=== PATIENT | female | born 1945 | race Caucasian/White ===

== ENCOUNTER 2018-01-11 20:54 | Emergency (ER) | payer OTHER, SELFPAY ==
[2018-01-11 21:15] VITALS: BP 123/123; PULSE 60; RESP 22; TEMP 36.9; O2SAT 97; BMI 30.9
[2018-01-11 22:11] VITALS: BP 153/79; PULSE 57; RESP 14; O2SAT 100
[2018-01-12 00:15] VITALS: BP 190/93; PULSE 63; RESP 14; O2SAT 96
--- NOTE | 2018-01-12 03:38 | ED_ITS ---
HPI - Epistaxis General Chief complaint: Nasal Problem Stated complaint: NOSE BLEED, FEELS FAINT Time Seen by Provider: 01/11/18 21:29 Source: patient Mode of arrival: ambulatory Limitations: no limitations History of Present Illness HPI Narrative: Patient is a 72-year-old female who presents with all epistaxis. She said it started 30 min prior to arrival she rubbed her know that and immediately started bleeding. It was never draining down her throat. She cannot get it to stop. She had a nosebleed last week as well which stopped fairly quickly. She is not on antiplatelet for his blood thinners. Seems to be coming more from the right side than the left. MD complaint: epistaxis Onset (ago): minute(s) (30) Related Data Previous Rx's Medication Instructions Recorded albuterol sulfate [Ventolin HFA] 0 INH Q4H #8 gm 05/17/16 fluticasone [Flonase Allergy 0 INTRANASAL QDAY #1 bot 06/10/16 Relief] losartan [Cozaar] 50 mg PO BID #180 tab 06/13/17 simvastatin 20 mg PO HS #90 tab 06/16/17 hydroxyzine HCl 25 - 50 mg PO Q6HP PRN #60 tab 09/20/17 doxycycline monohydrate 100 mg PO BID #20 cap 09/29/17 atenolol 50 mg PO QDAY #90 tab 10/31/17 fluoxetine 20 mg PO QDAY #90 tab 11/28/17 Allergies Allergy/AdvReac Type Severity Reaction Status Date / Time azithromycin [AZITHROMYCIN] Allergy Severe THROAT Verified 01/11/18 21:17 SWELLING & SOB sulfamethoxazole AdvReac Mild INSOMNIA Verified 01/11/18 21:17 [From BACTRIM] trimethoprim [From BACTRIM] AdvReac Mild INSOMNIA Verified 01/11/18 21:17 Review of Systems Review of Systems All systems reviewed & are unremarkable except as noted in HPI and below Constitutional Denies chills, Denies fever(s), Denies lethargy and Denies weakness ENT Ears, Nose, Mouth, and Throat: Denies nasal discharge, Denies nasal obstruction and Denies nasal trauma Cardiovascular Denies syncope and Denies dyspnea Respiratory Denies cough and Denies dyspnea Gastrointestinal Gastrointestinal: Denies abdominal pain, Denies change in bowel habits, Denies diarrhea, Denies nausea and Denies vomiting Integumentary/Breasts Denies pruritus, Denies erythema, Denies rash and Denies wounds Neurologic Denies syncope and Denies weakness PFSH Medical History Hyperlipidemia (Acute) Hypertension (Acute) Surgical History Status post vaginal hysterectomy Social History Smoking Status: Never smoker Exam Initial Vital Signs Initial Vital Signs: Vital Signs Temperature 98.5 F 01/11/18 21:15 Pulse Rate 60 01/11/18 21:15 Respiratory Rate 22 01/11/18 21:15 Blood Pressure 123/123 H 01/11/18 21:15 Pulse Oximetry 97 01/11/18 21:15 Const General: cooperative and healthy appearing HENMT Nose: epistaxis (Right side. Pharynx is clear ) Neck Neck: full ROM Resp Effort & Inspection: normal respiratory effort and able to speak in complete sentences Cardio Pulses: normal peripheral pulses Skin General: no rashes or lesions noted, No jaundice and No petechiae Neuro General: alert, awake and oriented x3 Procedures Epistaxis Control Time Out Performed: Yes Nostril: right Nose Prepped With: oxymetazoline Direct Inspection: yes and unable to visualize Clots Removed by: blowing nose Cautery Used: none Device Inserted: hemostatic balloon Patient Tolerated Procedure: well and no complications Course Hospital Course: Initially clamped was placed. Bleeding was thought to be controlled however it started dizziness the clamp was released. Rhino rocket with Afrin and placed easily on the right near. Bleeding controlled patient tolerated procedure well. Breathing remained controlled once it was removed. Vital Signs - 8 hr 01/11/18 21:15 01/11/18 22:11 01/12/18 00:15 Temperature 98.5 F Pulse Rate 60 57 L 63 Respiratory Rate 22 14 14 Blood Pressure 123/123 H 190/93 H Blood Pressure [Right Arm] 153/79 H Pulse Oximetry 97 100 96 MDM - Epistaxis MDM Narrative Medical decision making narrative: Blood pressure is noted to be fluctuating quite a bit during her stay here. She has not yet taken her nightly dose of medication. Recommended she go home to take her blood pressure medicine. Discharge Plan Departure Patient Disposition: Home, Self-Care Clinical Impression: Epistaxis Discharge Date/Time: 01/12/18 00:17 Interventions: ED Discharge Assessment Last Done: 01/12/18 00:15 Instructions: DI for Nosebleed Activity Restrictions/Additional Instructions: *You have been diagnosed with nose bleed *What to do: Placed clamp for 30-60 minutes of nose which should start again *Continue to take medications as directed *Follow up with your primary care provider in 2-3 days *Return to ER if you should have persistent bleeding after nose clamp for 60 min , blood going down throat or, any new, worsening or concerning symptoms Prescriptions: No Action albuterol sulfate [Ventolin HFA] 90 MCG/PUFF HFA aerosol inhaler INH Q4H Qty: 8 RF: 0 fluticasone [Flonase Allergy Relief] 9.9 ML spray,suspension Intranasal QDAY Qty: 1 RF: 1 losartan [Cozaar] 50 MG tablet 50 mg PO BID Qty: 180 RF: 5 simvastatin 20 MG tablet 20 mg PO HS Qty: 90 RF: 1 hydroxyzine HCl 25 MG tablet 25 - 50 mg PO Q6HP PRNQty: 60 RF: 5 doxycycline monohydrate 100 MG capsule 100 mg PO BID Qty: 20 RF: 0 atenolol 50 MG tablet 50 mg PO QDAY Qty: 90 RF: 1 fluoxetine 20 MG tablet 20 mg PO QDAY Qty: 90 RF: 0 Referrals: Jose Juan Ignacio MD [Primary Care Provider] -
== END 2018-01-12 00:17 | disposition home or self-care (01) ==
PROVIDERS: Emergency Provider Emergency Medicine; Family Provider Family Medicine; PCP Family Medicine
DX: R03.0 Elevated blood-pressure reading, without diagnosis of hypertension (principal)
CPT/HCPCS: 30905; 99282

== ENCOUNTER → 2018-02-21 18:15 | Outpatient (CLI) | payer OTHER, SELFPAY ==
--- NOTE | 2018-02-21 18:17 | DI.RAD.S_ITS ---
PROCEDURE: XR WRIST LT MIN 3V INDICATIONS: fall on left hand TECHNIQUE: 4 views of the wrist were acquired. COMPARISON: [facility], , HAND 2V LEFT, 11/15/2009, 14:58. FINDINGS: Bones: No fractures or dislocations. No suspicious bony lesions. Scaphoid view: Negative Soft tissues: No suspicious soft tissue calcifications. IMPRESSION: No acute fracture. No osseous lesion. If clinical suspicion and/or symptoms persist, further assessment with repeat plainfilms, or advanced imaging (e.g., CT, MRI, or bone scan) may be helpful for further assessment. Dictated by: Dale Mike M.D. on 02/21/2018 at 18:35 Approved by: Dale Mike M.D. on 02/21/2018 at 18:36
--- NOTE | 2018-02-21 18:17 | DI.RAD.S_ITS ---
PROCEDURE: XR HAND LT MIN 3V INDICATIONS: fall on left hand TECHNIQUE: 3 views of the hand(s) acquired. COMPARISON: [facility], [facility], XR WRIST LT MIN 3V, 02/21/2018, 17:57. [facility], [facility], HAND 2V LEFT, 11/15/2009, 14:58. FINDINGS: Bones: No fractures or dislocations. Carpal bones are normally aligned. No suspicious bony lesions. Soft tissues: No suspicious soft tissue calcifications. IMPRESSION: No acute fracture. No osseous lesion. If clinical suspicion and/or symptoms persist, further assessment with repeat plainfilms, or advanced imaging (e.g., CT, MRI, or bone scan) may be helpful for further assessment. Dictated by: Dale Mike M.D. on 02/21/2018 at 18:36 Approved by: Dale Mike M.D. on 02/21/2018 at 18:36
== END ==
PROVIDERS: Family Provider Family Medicine; PCP Family Medicine; Visit Provider Physician Assistant
DX: S69.92XA Unspecified injury of left wrist, hand and finger(s), initial encounter (principal); M79.642 Pain in left hand
CPT/HCPCS: 73110; 73130

== ENCOUNTER 2018-06-21 23:11 | Emergency (ER) | payer OTHER, SELFPAY ==
[2018-06-21 23:18] VITALS: BP 190/119; PULSE 77; RESP 20; TEMP 35.5; O2SAT 100; BMI 29.2
--- NOTE | 2018-06-21 23:25 | ED_ITS ---
HPI - Abdominal Pain General Chief Complaint: Abdominal Pain Stated Complaint: N/V x2 hours Time Seen by Provider: 06/21/18 23:17 Source: patient and EMS Mode of arrival: EMS Limitations: no limitations History of Present Illness HPI narrative: A 73-year-old female here for evaluation of nausea vomiting diarrhea. Patient stated that the symptoms started approximately 2 hr prior to arrival here in the emergency department. Has not tried anything for it. She states that it started as diarrhea and then progressed to nausea and vomiting. She states she could not get the vomiting under control. Does have some abdominal cramping but she states it is associated with the diarrhea and the nausea vomiting. Did eat pizza this evening. Family members are with her also ate the same food and none of them have the symptoms. Related Data Previous Rx's Medication Instructions Recorded albuterol sulfate [Ventolin HFA] 0 INH Q4H #8 gm 05/17/16 fluticasone [Flonase Allergy 0 INTRANASAL QDAY #1 bot 06/10/16 Relief] losartan [Cozaar] 50 mg PO BID #180 tab 06/13/17 hydroxyzine HCl 25 - 50 mg PO Q6HP PRN #60 tab 09/20/17 doxycycline monohydrate 100 mg PO BID #20 cap 09/29/17 atenolol 50 mg PO QDAY #90 tab 10/31/17 simvastatin 20 mg PO HS #90 tab 01/24/18 fluoxetine 20 mg tablet 20 mg PO QDAY #90 tab 04/13/18 ondansetron HCl [Zofran] 4 mg PO BID-TID PRN #10 tab 06/22/18 Allergies Allergy/AdvReac Type Severity Reaction Status Date / Time azithromycin [AZITHROMYCIN] Allergy Severe THROAT Verified 01/11/18 21:17 SWELLING & SOB sulfamethoxazole AdvReac Mild INSOMNIA Verified 01/11/18 21:17 [From BACTRIM] trimethoprim [From BACTRIM] AdvReac Mild INSOMNIA Verified 01/11/18 21:17 Review of Systems Constitutional Denies fever(s) and Denies frequent falls Cardiovascular Denies chest pain and Denies dyspnea Respiratory Denies dyspnea Gastrointestinal Gastrointestinal: Reports abdominal pain, Reports cramping, Reports diarrhea, Reports nausea and Reports vomiting Genitourinary Denies dysuria Integumentary/Breasts Denies lesions and Denies rash Neurologic Denies frequent falls PFSH Medical History Hyperlipidemia (Acute) Hypertension (Acute) Surgical History Status post vaginal hysterectomy Social History Smoking Status: Never smoker Exam Initial Vital Signs Initial Vital Signs: Vital Signs Temperature 96 F L 06/21/18 23:18 Pulse Rate 77 06/21/18 23:18 Respiratory Rate 20 06/21/18 23:18 Blood Pressure 190/119 H 06/21/18 23:18 Pulse Oximetry 100 06/21/18 23:18 Const General: cooperative, well developed, well groomed and No acute distress Orientation: alert, awake and oriented x3 Resp Effort & Inspection: normal respiratory effort Auscultation: clear to auscultation bilaterally Cardio Rate: regular rate Rhythm: regular rhythm GI Inspection: non-distended Palpation: soft, No firm, No guarding and tender (Diffusely tender) Skin Lesions: no lesions Rashes: no rashes Neuro General: alert, awake and oriented x3 Cognition: normal cognition Speech: speech normal Extrem General: normal to inspection and capillary refill normal Psych Appearance: grossly normal and well kempt Course Orders Ordered: ED Orders 06/21/18 23:58 Comprehensive Metabolic Panel Stat Lipase Stat 06/22/18 00:18 Complete Blood Count AUTO DIFF Stat Discontinued Medications Sodium Chloride (Normal Saline 0.9%) 1,000 mls @ 1,000 mls/hr IV BOLUS ONE Stop: 06/22/18 00:16 Last Infusion: 06/22/18 01:14 Dose: 1,000 mls/hr Admin: 06/21/18 23:50 Dose: 1,000 mls/hr Metoclopramide HCl (Reglan) 10 mg IV NOW ONE Stop: 06/22/18 00:42 Last Admin: 06/22/18 00:43 Dose: 10 mg Ondansetron HCl (Zofran) 4 mg IV NOW ONE Stop: 06/21/18 23:18 Last Admin: 06/21/18 23:50 Dose: 4 mg Ondansetron HCl (Zofran Odt Prepack) 1 bottle MISC SEEINSTR ONE Stop: 06/22/18 01:56 Vital Signs - 8 hr 06/21/18 23:18 06/22/18 00:10 06/22/18 00:45 Temperature 96 F L 96 F L Pulse Rate 77 77 70 Respiratory Rate 20 20 16 Blood Pressure 190/119 H 190/119 H Blood Pressure [Right Arm] 186/96 H Pulse Oximetry 100 100 100 MDM - Abdominal Pain Lab Data Attestation: I reviewed the patient's lab results. Result diagrams: 06/21/18 23:58 06/21/18 23:58 Lab Results 06/21/18 06/21/18 06/21/18 Range/Units 23:58 23:58 23:58 WBC 13.0 H (4.5-11.0) X10^3/uL RBC 5.30 H (4.0-5.2) X10^6/uL Hgb 15.4 (12.0-16.0) g/dL Hct 46.1 H (36-46) % MCV 87.1 (80-100) fL MCH 29.1 (26-34) PG MCHC 33.5 (30-36) % RDW 13.8 (11.6-14.8) % Plt Count 259 (150-400) X10^3/uL Neut % (Auto) 88.1 H (50-75) % Lymph % (Auto) 6.1 L (25-40) % [place] % (Auto) 5.2 (3-14) % Eos % (Auto) 0.4 L (2-4) % Baso % (Auto) 0.2 (0-2) % Neut # (Auto) 01065 H (3998-5584) /uL Sodium 142 (137-145) mmol/L Potassium 3.3 L (3.4-5.1) mmol/L Chloride 102 (98-107) mmol/L Carbon Dioxide 23 (22-32) mmol/L BUN 22 H (7-17) mg/dL Creatinine 0.60 (0.52-1.04) mg/dL Estimated GFR > 60.0 (>60) mL/min BUN/Creatinine Ratio 36.7 H (6-22) Glucose 150 H (80-110) mg/dL Calcium 9.3 (8.4-10.2) mg/dL Total Bilirubin 0.7 (0.2-1.3) mg/dL AST 35 (14-36) IU/L ALT 27 (9-52) IU/L Alkaline Phosphatase 84 (38-126) U/L Total Protein 7.5 (6.3-8.2) g/dL Albumin 4.7 (3.5-5.0) g/dL Globulin 2.8 (1.7-4.1) g/dL Albumin/Globulin Ratio 1.7 (1.0-2.8) Lipase 50 (23-300) U/L MDM Narrative Medical decision making narrative: Patient received a L fluids and Zofran and Reglan here in the emergency department with improvement of her symptoms. She was able to tolerate oral intake. Her abdominal pain improved when the nausea was better. I suspect the slight leukocytosis is demargination. Will send home with a prescription for Zofran. Will hold on further workup for now. Patient was given return precautions. She expressed understanding and agreement with plan. Patient also hypertensive however she stated that she did not take her night medications because of the nausea and vomiting. Discharge Plan Departure Patient Disposition: Home Clinical Impression: Nausea & vomiting, Diarrhea, Hypertension Instructions: Diarrhea, Nausea and Vomiting-Adult Activity Restrictions/Additional Instructions: Recommend you take the medication as directed. Increase your fluid intake. Return to the emergency department for any new symptoms, worsening symptoms, inability to tolerate oral intake despite the medications, fevers, or any other concerning symptoms. Prescriptions: New ondansetron HCl [Zofran] 4 mg tablet 4 mg PO BID-TID PRN (Reason: nausea and vomiting) Qty: 10 RF: 0 No Action albuterol sulfate [Ventolin HFA] 90 MCG/PUFF HFA aerosol inhaler INH Q4H Qty: 8 RF: 0 fluticasone [Flonase Allergy Relief] 9.9 ML spray,suspension Intranasal QDAY Qty: 1 RF: 1 losartan [Cozaar] 50 MG tablet 50 mg PO BID Qty: 180 RF: 5 hydroxyzine HCl 25 MG tablet 25 - 50 mg PO Q6HP PRNQty: 60 RF: 5 doxycycline monohydrate 100 MG capsule 100 mg PO BID Qty: 20 RF: 0 atenolol 50 MG tablet 50 mg PO QDAY Qty: 90 RF: 1 simvastatin 20 mg tablet 20 mg PO HS Qty: 90 RF: 1 fluoxetine 20 mg tablet 20 mg PO QDAY Qty: 90 RF: 0
[2018-06-21] MEDS: SODIUM CHLORIDE 0.9% 1,000 ML 1000 ML IV (23:50)
[2018-06-21] MEDS: ONDANSETRON 4 MG/2 ML INJ IV (23:50)
[2018-06-22 00:10] VITALS: BP 190/119; PULSE 77; RESP 20; TEMP 35.5; O2SAT 100; BMI 29.2
[2018-06-22 00:28] LABS: Add Manual Diff / Slide Review NO; Basophils Percent Auto 0.2 % (0-2); Eosinophils Percent Auto 0.4 % (2-4); Hematocrit 46.1 % (36-46); Hemoglobin 15.4 g/dL (12.0-16.0); Lymphocytes Percent Auto 6.1 % (25-40); Mean Corpuscular HGB Conc 33.5 % (30-36); Mean Corpuscular Hemoglobin 29.1 PG (26-34); Mean Corpuscular Volume 87.1 fL (80-100); Monocytes Percent Auto 5.2 % (3-14); Neutrophils Absolute Auto 11500 /uL (3000-5900); Neutrophils Percent Auto 88.1 % (50-75); Platelet Count 259 X10^3/uL (150-400); Red Cell Distribution Width 13.8 % (11.6-14.8)
[2018-06-22 00:35] LABS: Lipase 50 U/L (23-300)
[2018-06-22 00:37] LABS: Alanine Aminotransferase 27 IU/L (9-52); Albumin 4.7 g/dL (3.5-5.0); Albumin Globulin Ratio 1.7 (1.0-2.8); Alkaline Phosphatase 84 U/L (38-126); Aspartate Aminotransferase 35 IU/L (14-36); BUN Creatinine Ratio 36.7 (6-22); Bilirubin Total 0.7 mg/dL (0.2-1.3); Blood Urea Nitrogen 22 mg/dL (7-17); Calcium 9.3 mg/dL (8.4-10.2); Carbon Dioxide 23 mmol/L (22-32); Chloride 102 mmol/L (98-107); Estimated Glomerular Filt Rate > 60.0 mL/min (>60); Globulin 2.8 g/dL (1.7-4.1); Glucose 150 mg/dL (80-110); HEMOLYSIS < 15 (0-50); Potassium 3.3 mmol/L (3.4-5.1); Sodium 142 mmol/L (137-145); Total Protein 7.5 g/dL (6.3-8.2)
[2018-06-22] MEDS: METOCLOPRAMIDE 10 MG/2 ML INJ IV (00:43)
[2018-06-22 00:45] VITALS: BP 186/96; PULSE 70; RESP 16; O2SAT 100
[2018-06-22 01:30] VITALS: BP 184/109; PULSE 71; RESP 17; O2SAT 99
[2018-06-22] MEDS: ONDANSETRON 4 MG ODT PREPACK 1 BOTTLE MISC (02:09)
== END 2018-06-22 02:10 | disposition home or self-care (01) ==
PROVIDERS: Emergency Provider Emergency Medicine; Family Provider Family Medicine; PCP Family Medicine
DX: I10 Essential (primary) hypertension (principal); R11.2 Nausea with vomiting, unspecified; R19.7 Diarrhea, unspecified
CPT/HCPCS: 36591; 80053; 83690; 85025; 96361; 96374; 96375; 99283; 99284; J2405; J2765

== ENCOUNTER → 2018-09-05 08:06 | Outpatient (CLI) | payer OTHER, SELFPAY ==
[2018-09-05 08:58] LABS: Hemoglobin A1C% w Est Avg Glu 5.2 % (4.0-6.0)
[2018-09-05 09:06] LABS: Add Manual Diff / Slide Review NO; Basophils Absolute Auto 0 /uL (0-100); Basophils Percent Auto 0.7 % (0-2); Eosinophils Absolute Auto 100 /uL (0-450); Eosinophils Percent Auto 1.4 % (2-4); Hematocrit 44.9 % (36-46); Hemoglobin 14.8 g/dL (12.0-16.0); Lymphocytes Absolute Auto 1300 /uL (1100-4500); Lymphocytes Percent Auto 21.5 % (25-40); Mean Corpuscular Hemoglobin 29.1 PG (26-34); Mean Corpuscular Volume 88.3 fL (80-100); Monocytes Absolute Auto 500 /uL (0-900); Monocytes Percent Auto 8.1 % (3-14); Neutrophils Absolute Auto 4000 /uL (1500-7000); Neutrophils Percent Auto 68.3 % (50-75); Platelet Count 283 X10^3/uL (150-400); Red Blood Cell Count 5.09 X10^6/uL (4.0-5.2); White Blood Cell Count 5.9 X10^3/uL (4.5-11.0)
[2018-09-05 09:22] LABS: Alanine Aminotransferase 26 IU/L (9-52); Albumin 4.4 g/dL (3.5-5.0); Albumin Globulin Ratio 1.5 (1.0-2.8); Alkaline Phosphatase 78 U/L (38-126); Aspartate Aminotransferase 27 IU/L (14-36); BUN Creatinine Ratio 24.3 (6-22); Bilirubin Total 0.5 mg/dL (0.2-1.3); Blood Urea Nitrogen 17 mg/dL (7-17); Calcium 9.2 mg/dL (8.4-10.2); Carbon Dioxide 28 mmol/L (22-32); Chloride 103 mmol/L (98-107); Cholesterol 176 mg/dL (140-199); Estimated Glomerular Filt Rate > 60.0 mL/min (>60); Globulin 2.9 g/dL (1.7-4.1); Glucose 99 mg/dL (80-110); HDL Cholesterol 52 mg/dL (40-60); HEMOLYSIS < 15 (0-50); LDL Cholesterol Calculated 101 mg/dL (<100); Potassium 3.9 mmol/L (3.4-5.1); Sodium 138 mmol/L (137-145); Total Protein 7.3 g/dL (6.3-8.2); Triglycerides 115 mg/dL (35-150)
[2018-09-05 09:49] LABS: Thyroid Stimulating Hormone 2.41 uIU/mL (0.47-4.68)
[2018-09-05 10:18] LABS: Creatinine Urine Random 74.4 mg/dL
[2018-09-05 10:21] LABS: Microalbumi Creatinin Ratio Ur 16.1 ug/mg CR (<30); Microalbumin Urine Random 1.2 mg/dL (0-1.6)
== END ==
PROVIDERS: PCP Family Medicine; Visit Provider Family Medicine
DX: E78.5 Hyperlipidemia, unspecified (principal); I10 Essential (primary) hypertension; R73.09 Other abnormal glucose; R89.9 Unspecified abnormal finding in specimens from other organs, systems and tissues
CPT/HCPCS: 36415; 80053; 80061; 82043; 82570; 83036; 84443; 85025

== ENCOUNTER → 2018-10-10 13:13 | Outpatient (CLI) | payer OTHER, SELFPAY | PROVIDERS: PCP Family Medicine; Visit Provider Family Medicine | DX: M85.851 Other specified disorders of bone density and structure, right thigh (principal); Z78.0 Asymptomatic menopausal state | CPT/HCPCS: 77080 ==

== ENCOUNTER → 2019-02-06 12:15 | Outpatient (CLI) | payer OTHER, SELFPAY ==
--- NOTE | 2019-02-06 12:17 | DI.MG.S_ITS ---
BILATERAL DIGITAL SCREENING MAMMOGRAM 3D/2D WITH CAD: 02/06/2019 CLINICAL: Routine screening. Comparison is made to exams dated: 12/18/2015 mammogram, 04/18/2013 mammogram, and 11/05/2011 mammogram - [facility]. There are scattered fibroglandular elements in both breasts. Current study was also evaluated with a Computer Aided Detection (CAD) system. No significant masses, calcifications, or other findings are seen in either breast. There has been no significant interval change. IMPRESSION: NEGATIVE There is no mammographic evidence of malignancy. A 1 year screening mammogram is recommended. This exam was interpreted at Station ID: [id number]. NOTE: For mammograms, a report in lay terms will be sent to the patient. Approximately 15% of breast malignancies will not be visualized mammographically. In the management of a palpable breast mass, a negative mammogram must not discourage biopsy of a clinically suspicious lesion. Electronically Signed By: Dylan cedillo/pallavi:02/06/2019 13:27:12 letter sent: Normal Exam ACR BI-RADS Category 1: Negative [id number]
== END ==
PROVIDERS: PCP Family Medicine; Visit Provider Family Medicine
DX: Z12.31 Encounter for screening mammogram for malignant neoplasm of breast (principal)
CPT/HCPCS: 77063; 77067

== ENCOUNTER → 2019-02-21 12:50 | Outpatient (CLI) | payer OTHER, SELFPAY ==
--- NOTE | 2019-02-21 12:52 | DI.RAD.S_ITS ---
PROCEDURE: XR FINGER RT MIN 2V INDICATIONS: fell, 4th digit swollen and painful TECHNIQUE: AP hand, 2 views of the fourth finger(s) acquired. COMPARISON: None. FINDINGS: Bones: Mild to moderate osteoarthritic changes throughout right wrist and right hand joints are seen. No fractures or dislocations. No gross bony erosive changes. No suspicious bony lesions. Soft tissues: No suspicious soft tissue calcifications. 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 No fracture or dislocation. No bony erosive changes. Dictated by: Joshua Sharp M.D. on 02/21/2019 at 13:22 Approved by: Joshua Sharp M.D. on 02/21/2019 at 13:23
== END ==
PROVIDERS: PCP Family Medicine; Visit Provider Hospitalist
DX: M79.644 Pain in right finger(s) (principal)
CPT/HCPCS: 73140

== ENCOUNTER → 2019-08-07 10:38 | Outpatient (CLI) | payer OTHER, SELFPAY ==
[2019-08-07 11:15] LABS: Add Manual Diff / Slide Review NO; Basophils Absolute Auto 0 /uL (0-100); Basophils Percent Auto 0.8 % (0-2); Eosinophils Absolute Auto 100 /uL (0-450); Eosinophils Percent Auto 2.3 % (2-4); Hematocrit 40.6 % (36-46); Hemoglobin 13.6 g/dL (12.0-16.0); Lymphocytes Absolute Auto 1100 /uL (1100-4500); Mean Corpuscular HGB Conc 33.6 % (30-36); Mean Corpuscular Hemoglobin 29.7 PG (26-34); Mean Corpuscular Volume 88.4 fL (80-100); Monocytes Absolute Auto 400 /uL (0-900); Monocytes Percent Auto 7.2 % (3-14); Neutrophils Absolute Auto 4200 /uL (1500-7000); Neutrophils Percent Auto 70.7 % (50-75); Platelet Count 272 X10^3/uL (150-400); Red Blood Cell Count 4.59 X10^6/uL (4.0-5.2); Red Cell Distribution Width 13.8 % (11.6-14.8); White Blood Cell Count 5.9 X10^3/uL (4.5-11.0)
[2019-08-07 11:27] LABS: Monotest Negative (Negative)
[2019-08-07 11:45] LABS: Alanine Aminotransferase 30 IU/L (<35); Albumin 4.1 g/dL (3.5-5.0); Albumin Globulin Ratio 1.7 (1.0-2.8); Alkaline Phosphatase 78 U/L (38-126); Aspartate Aminotransferase 33 IU/L (14-36); BUN Creatinine Ratio 41.7 (6-22); Bilirubin Total 0.5 mg/dL (0.2-1.3); Blood Urea Nitrogen 25 mg/dL (7-17); Calcium 9.5 mg/dL (8.4-10.2); Carbon Dioxide 29 mmol/L (22-32); Chloride 101 mmol/L (98-107); Estimated Glomerular Filt Rate > 60.0 mL/min (>60); Globulin 2.4 g/dL (1.7-4.1); Glucose 79 mg/dL (80-110); HEMOLYSIS < 15 (0-50); Potassium 4.4 mmol/L (3.4-5.1); Sodium 140 mmol/L (137-145); Total Protein 6.5 g/dL (6.3-8.2)
[2019-08-07 12:16] LABS: TSH w/ Reflex to FT4 2.22 uIU/mL (0.47-4.68)
== END ==
PROVIDERS: PCP Family Medicine; Visit Provider Nurse Practitioner
DX: R53.83 Other fatigue (principal)
CPT/HCPCS: 36415; 80053; 84443; 85025; 86318

== ENCOUNTER → 2019-08-23 10:04 | Outpatient (CLI) | payer MEDICARE, SELFPAY ==
[2019-08-23 10:45] LABS: Blood Urea Nitrogen 24 mg/dL (7-17); Calcium 9.4 mg/dL (8.4-10.2); Carbon Dioxide 28 mmol/L (22-32); Chloride 97 mmol/L (98-107); Estimated Glomerular Filt Rate > 60.0 mL/min (>60); Glucose 97 mg/dL (80-110); HEMOLYSIS < 15 (0-50); Magnesium 2.2 mg/dL (1.6-2.3); Potassium 4.2 mmol/L (3.4-5.1); Sodium 134 mmol/L (137-145)
== END ==
PROVIDERS: PCP Family Medicine; Visit Provider Family Medicine
DX: I10 Essential (primary) hypertension (principal)
CPT/HCPCS: 36415; 80048; 83735

== ENCOUNTER → 2019-09-06 15:18 | Outpatient (CLI) | payer MEDICARE, SELFPAY ==
[2019-09-06 15:43] LABS: Add Manual Diff / Slide Review NO; Basophils Absolute Auto 0 /uL (0-100); Basophils Percent Auto 0.9 % (0-2); Eosinophils Absolute Auto 100 /uL (0-450); Eosinophils Percent Auto 2.6 % (2-4); Hematocrit 40.6 % (36-46); Hemoglobin 13.7 g/dL (12.0-16.0); Lymphocytes Absolute Auto 1100 /uL (1100-4500); Lymphocytes Percent Auto 22.1 % (25-40); Mean Corpuscular HGB Conc 33.8 % (30-36); Mean Corpuscular Hemoglobin 29.7 PG (26-34); Mean Corpuscular Volume 87.9 fL (80-100); Monocytes Absolute Auto 400 /uL (0-900); Monocytes Percent Auto 7.2 % (3-14); Neutrophils Absolute Auto 3400 /uL (1500-7000); Neutrophils Percent Auto 67.2 % (50-75); Platelet Count 269 X10^3/uL (150-400); Red Blood Cell Count 4.62 X10^6/uL (4.0-5.2); Red Cell Distribution Width 13.8 % (11.6-14.8); White Blood Cell Count 5.1 X10^3/uL (4.5-11.0)
[2019-09-06 16:03] LABS: Alanine Aminotransferase 24 IU/L (<35); Albumin 4.3 g/dL (3.5-5.0); Albumin Globulin Ratio 1.4 (1.0-2.8); Alkaline Phosphatase 69 U/L (38-126); Amylase 61 U/L (30-110); Aspartate Aminotransferase 32 IU/L (14-36); Bilirubin Total 0.4 mg/dL (0.2-1.3); Blood Urea Nitrogen 21 mg/dL (7-17); C-Reactive Protein Quant < 0.5 mg/dL (<1.0); Calcium 9.4 mg/dL (8.4-10.2); Carbon Dioxide 30 mmol/L (22-32); Chloride 101 mmol/L (98-107); Estimated Glomerular Filt Rate > 60.0 mL/min (>60); Glucose 99 mg/dL (80-110); HEMOLYSIS < 15 (0-50); Lipase 44 U/L (23-300); Magnesium 2.4 mg/dL (1.6-2.3); Potassium 3.9 mmol/L (3.4-5.1); Sodium 140 mmol/L (137-145); Total Protein 7.3 g/dL (6.3-8.2)
[2019-09-06 16:13] LABS: Erythrocyte Sedimentation Rate 7 MM/HR (0-20)
[2019-09-06 17:06] LABS: Thyroid Stimulating Hormone 2.24 uIU/mL (0.47-4.68)
== END ==
PROVIDERS: PCP Family Medicine; Visit Provider Family Medicine
DX: R53.83 Other fatigue (principal)
CPT/HCPCS: 36415; 80053; 82150; 83690; 83735; 84443; 85025; 85651; 86140

== ENCOUNTER 2019-09-07 14:37 | Emergency (ER) | payer MEDICARE, SELFPAY ==
[2019-09-07] VITALS (11 sets, daily range): BP systolic 119–198; BP diastolic 73–100; PULSE 53–75; RESP 14–28; TEMP 36.4; O2SAT 96–100; BMI 29.8
--- NOTE | 2019-09-07 15:04 | DI.RAD.S_ITS ---
PROCEDURE: XR CHEST 1V INDICATIONS: chest pain TECHNIQUE: One view of the chest was acquired. COMPARISON: [facility], , CHEST 2 VIEW, 05/17/2016, 11:09. FINDINGS: Surgical changes and devices: None. Lungs and pleura: Lungs are clear. No pleural effusions or pneumothorax. Mediastinum: Mediastinal contours appear normal. The heart is border line enlarged. There is aortic atherosclerosis. Bones and chest wall: No suspicious bony lesions. Degenerative changes of the spine appear similar to the previous examination. Overlying soft tissues appear unremarkable. IMPRESSION: No acute cardiopulmonary process is evident. Dictated by: Yair Pope M.D. on 09/07/2019 at 15:10 Approved by: Yair Pope M.D. on 09/07/2019 at 15:11
[2019-09-07 15:40] LABS: Add Manual Diff / Slide Review NO; Basophils Absolute Auto 100 /uL (0-100); Basophils Percent Auto 1.1 % (0-2); Eosinophils Absolute Auto 200 /uL (0-450); Eosinophils Percent Auto 3.1 % (2-4); Hematocrit 41.9 % (36-46); Hemoglobin 14.3 g/dL (12.0-16.0); Lymphocytes Absolute Auto 1400 /uL (1100-4500); Lymphocytes Percent Auto 26.6 % (25-40); Mean Corpuscular Hemoglobin 30.1 PG (26-34); Mean Corpuscular Volume 88.4 fL (80-100); Monocytes Absolute Auto 400 /uL (0-900); Monocytes Percent Auto 7.2 % (3-14); Neutrophils Absolute Auto 3200 /uL (1500-7000); Platelet Count 243 X10^3/uL (150-400); Red Blood Cell Count 4.74 X10^6/uL (4.0-5.2); Red Cell Distribution Width 14.4 % (11.6-14.8); White Blood Cell Count 5.1 X10^3/uL (4.5-11.0)
[2019-09-07 15:47] LABS: INR 0.9 (0.9-1.3); Prothrombin Time 10.8 SECONDS (10.1-12.7)
[2019-09-07 15:50] LABS: PTT Partial Thromboplastin Tim 35 SECONDS (26.4-36.2)
[2019-09-07 15:51] LABS: Alanine Aminotransferase 27 IU/L (<35); Albumin 4.3 g/dL (3.5-5.0); Albumin Globulin Ratio 1.4 (1.0-2.8); Alkaline Phosphatase 83 U/L (38-126); Aspartate Aminotransferase 35 IU/L (14-36); Bilirubin Total 0.4 mg/dL (0.2-1.3); Blood Urea Nitrogen 19 mg/dL (7-17); Calcium 9.4 mg/dL (8.4-10.2); Carbon Dioxide 28 mmol/L (22-32); Chloride 102 mmol/L (98-107); Creatine Kinase 41 U/L (30-135); Estimated Glomerular Filt Rate > 60.0 mL/min (>60); Glucose 108 mg/dL (80-110); HEMOLYSIS < 15 (0-50); Lipase 53 U/L (23-300); Potassium 3.7 mmol/L (3.4-5.1); Sodium 140 mmol/L (137-145); Total Protein 7.3 g/dL (6.3-8.2)
[2019-09-07 16:02] LABS: Troponin I < 0.012 ng/mL (0.01-0.034)
--- NOTE | 2019-09-07 16:20 | ED_ITS ---
HPI - Dizziness General Chief Complaint: Dizziness Stated Complaint: elevated blood pressure Time Seen by Provider: 09/07/19 15:58 Source: patient Mode of arrival: Family Vehicle Limitations: no limitations History of Present Illness HPI Narrative: 1723: The patient's blood pressure on admission and triage was 143/86. Her repeat blood pressure at 4:27 p.m. was 172/80. The patient was complaining of being dizzy when her blood pressure is above 170. She states that her physician wants her to go into the emergency department when her blood pressure is above 170. Her blood pressure was 175 so she came into the emergency department. She denies any chest pain or shortness of breath but has been dizzy with lightheadedness. She denies any disequilibrium or spinning vertigo. We are going to check blood pressure in both arms and orthostasis. Her CBC is within normal limits. Electrolytes are normal with her BUN being 19 creatinine 0.5. Her GFR is greater than 60. She denies any change in vision loss of vision or double vision. She has had no significant chest pain she has some mild intermittent chest pressure. She has had no shortness of breath belly pain nausea or vomiting. She has never been evaluated for pheochromocytoma. The patient states that when her blood pressure is going up she feels flushed develop some head pressure. Related Data Home Medications Medication Instructions Recorded Confirmed atenolol 50 mg PO BID 09/07/19 09/07/19 fluoxetine 20 mg PO DAILY 09/07/19 09/07/19 fluticasone propionate [Flonase 1 spray INTRANASAL DAILY 09/07/19 09/07/19 Allergy Relief] losartan 50 mg PO BID 09/07/19 09/07/19 simvastatin 20 mg PO BEDTIME 09/07/19 09/07/19 Previous Rx's Medication Instructions Recorded blood pressure kit #1 ea 08/14/19 amlodipine 5 mg tablet 10 mg PO DAILY #180 tab 08/23/19 spironolactone 25 mg tablet 25 mg PO BID #60 tab 09/06/19 Allergies Allergy/AdvReac Type Severity Reaction Status Date / Time azithromycin [AZITHROMYCIN] Allergy Severe THROAT Verified 08/14/19 10:07 SWELLING & SOB sulfamethoxazole AdvReac Mild INSOMNIA Verified 08/14/19 10:07 [From BACTRIM] trimethoprim [From BACTRIM] AdvReac Mild INSOMNIA Verified 08/14/19 10:07 Review of Systems Review of Systems ROS Unobtainable: All systems reviewed & are unremarkable except as noted in HPI and below Patient History Medical History Hyperlipidemia (Acute) Hypertension (Acute) Surgical History Status post vaginal hysterectomy Social History Smoking Status: Never smoker Smoking Status: Never smoker alcohol intake frequency: holidays/special occasions only Substance Use Type: does not use Exam Narrative Exam Narrative: For PHYSICAL EXAM: CONSTITUTIONAL: Awake, Alert, Oriented, Coherent, Cooperative in NAD. Does not appear toxic or ill. HEAD: AT/NC EENT: PERRL, FROM of eyes, no discharge, no nystagmus Oral mucosa is moist and pink, posterior pharynx is without erythema or exudate. NECK: Supple, no obvious JVD, Trachea is midline without stridor, no palpable LN or masses. SPINE: No gross deformity, no palpable tenderness of the cervical, thoracic, lumbar or sacral spine. No CVA tenderness. THORAX: No deformity, retractions, chest wall tenderness, subcutaneous air or crepitice. LUNGS: Clear with symmetrical breath sounds without respiratory distress HEART: Normal heart tones, regular rhythm and rate without murmur. ABDOMEN: Soft, non-tender, normal bowel sounds without guarding, rebound, rigidity or palpable mass .. EXTREMITIES: No edema, cyanosis, deformity or tenderness. SKIN: No rash, bruising, petechiae or purpura. NEURO: Awake, alert, oriented, conversive, cranial nerves II-XII are symmetrical and normal, moves all 4 extremities and is ambulatory Initial Vital Signs Initial Vital Signs: Vital Signs Temperature 97.5 F L 09/07/19 14:55 Pulse Rate 60 09/07/19 14:55 Respiratory Rate 18 09/07/19 14:55 Blood Pressure 143/86 H 09/07/19 14:55 Pulse Oximetry 100 09/07/19 14:55 Course Course Course Narrative: Her chest x-ray does not reveal any acute cardiopulmonary pathology. The plan is to recheck the patient's blood pressure ambulate her and discharged home. 1818 the patient's blood pressure in the supine position lying down left arm was 149/73 with a heart rate of 66. Right arm 155/80. Standing the patient's blood pressure dropped to 119/83 and a heart rate of 75. This is orthostatic changes and the patient will be administered a L of normal saline. The patient ambulated to the bathroom without problems. She was feeling better. 1948 the patient received 1 L of IV fluid. Her orthostatic vitals after receiving the IV fluid revealed a blood pressure of 166/94 with a heart rate of 54. In the lying down position. In the sitting position the blood pressure was 167/100 1 in the standing position the patient's pressure was 179/84 with a heart rate of 62. 2003 the patients anti hypertensive medications include atenolol 50 mg b.i.d.., amlodipine 10 mg q.day, spironolactone 25 mg b.i.d., losartan 50 mg b.i.d. the patient is on 4 different medications. Patient was advised that everybody has orthostatic changes in her blood pressure. However when they were on multiple medications these orthostatic changes are amplified and sometimes exaggerated. It is not unusual that if you go from a lying down position to a standing position you may become dizzy and unsteady. However it should not last for a long period of time. If you are changing your positions as such you should be holding on to something. Placing you on other medications will exaggerate this and possibly make it worse. Your changes need to be slow unless there is a critical symptom. Orders Ordered: ED Orders 09/07/19 15:04 XR chest 1V Stat 09/07/19 15:30 Complete Blood Count AUTO DIFF Stat Comprehensive Metabolic Panel Stat Lipase Stat Partial Thromboplastin Time Stat Prothrombin Time INR Stat Troponin & CK Cardiac Panel Stat Discontinued Medications Atenolol (Tenormin) 50 mg PO NOW ONE Stop: 09/07/19 19:27 Last Admin: 09/07/19 19:38 Dose: 50 mg Documented by: MMCFARL Sodium Chloride (Normal Saline 0.9%) 1,000 mls @ 1,000 mls/hr IV BOLUS ONE Stop: 09/07/19 19:17 Last Infusion: 09/07/19 19:53 Dose: 1,000 mls/hr Documented by: Admin: 09/07/19 18:50 Dose: 1,000 mls/hr Documented by: ROSS Losartan Potassium (Cozaar) 50 mg PO NOW ONE Stop: 09/07/19 19:27 Last Admin: 09/07/19 19:38 Dose: 50 mg Documented by: NORI Vital Signs Vital signs: Vital Signs - 8 hr 09/07/19 14:55 09/07/19 15:31 09/07/19 16:27 Temperature 97.5 F L Pulse Rate 60 53 L 53 L Pulse Rate [Orthostatic Lying] Pulse Rate [Orthostatic Sitting] Pulse Rate [Orthostatic Standing] Respiratory Rate 18 20 28 H Blood Pressure 143/86 H Blood Pressure [Left Arm] 157/79 H 172/80 H Blood Pressure [Orthostatic Lying] Blood Pressure [Orthostatic Sitting] Blood Pressure [Orthostatic Standing] Blood Pressure [Right Arm] Pulse Oximetry 100 96 96 09/07/19 17:58 09/07/19 17:59 09/07/19 18:04 Temperature Pulse Rate 66 Pulse Rate [Orthostatic Lying] 66 Pulse Rate [Orthostatic Sitting] Pulse Rate [Orthostatic Standing] 75 Respiratory Rate 14 Blood Pressure Blood Pressure [Left Arm] 149/73 H Blood Pressure [Orthostatic Lying] 149/73 H Blood Pressure [Orthostatic Sitting] Blood Pressure [Orthostatic Standing] 119/83 Blood Pressure [Right Arm] 155/80 H Pulse Oximetry 96 09/07/19 18:30 09/07/19 19:00 09/07/19 19:30 Temperature Pulse Rate 59 L 62 61 Pulse Rate [Orthostatic Lying] Pulse Rate [Orthostatic Sitting] Pulse Rate [Orthostatic Standing] Respiratory Rate 16 18 18 Blood Pressure Blood Pressure [Left Arm] Blood Pressure [Orthostatic Lying] Blood Pressure [Orthostatic Sitting] Blood Pressure [Orthostatic Standing] Blood Pressure [Right Arm] 182/76 H 198/100 H 167/100 H Pulse Oximetry 96 98 98 09/07/19 19:38 09/07/19 19:43 Temperature Pulse Rate 62 Pulse Rate [Orthostatic Lying] 54 L Pulse Rate [Orthostatic Sitting] 66 Pulse Rate [Orthostatic Standing] 62 Respiratory Rate Blood Pressure 179/84 H Blood Pressure [Left Arm] Blood Pressure [Orthostatic Lying] 166/94 H Blood Pressure [Orthostatic Sitting] 167/100 H Blood Pressure [Orthostatic Standing] 179/84 H Blood Pressure [Right Arm] Pulse Oximetry MDM - Dizziness Lab Data Attestation: I reviewed the patient's lab results. Result diagrams: 09/07/19 15:30 09/07/19 15:30 Labs: Lab Results 09/07/19 09/07/19 09/07/19 Range/Units 15:30 15:30 15:30 WBC 5.1 (4.5-11.0) X10^3/uL RBC 4.74 (4.0-5.2) X10^6/uL Hgb 14.3 (12.0-16.0) g/dL Hct 41.9 (36-46) % MCV 88.4 (80-100) fL MCH 30.1 (26-34) PG MCHC 34.0 (30-36) % RDW 14.4 (11.6-14.8) % Plt Count 243 (150-400) X10^3/uL Neut % (Auto) 62.0 (50-75) % Lymph % (Auto) 26.6 (25-40) % [place] % (Auto) 7.2 (3-14) % Eos % (Auto) 3.1 (2-4) % Baso % (Auto) 1.1 (0-2) % Neut # (Auto) 3200 (8257-6330) /uL Lymph # (Auto) 1400 (2802-6194) /uL [place] # (Auto) 400 (0-900) /uL Eos # (Auto) 200 (0-450) /uL Baso # (Auto) 100 (0-100) /uL PT 10.8 (10.1-12.7) SECONDS INR 0.9 (0.9-1.3) APTT 35 (26.4-36.2) SECONDS Sodium 140 (137-145) mmol/L Potassium 3.7 (3.4-5.1) mmol/L Chloride 102 (98-107) mmol/L Carbon Dioxide 28 (22-32) mmol/L BUN 19 H (7-17) mg/dL Creatinine 0.50 L (0.52-1.04) mg/dL Estimated GFR > 60.0 (>60) mL/min BUN/Creatinine Ratio 38.0 H (6-22) Glucose 108 (80-110) mg/dL Calcium 9.4 (8.4-10.2) mg/dL Total Bilirubin 0.4 (0.2-1.3) mg/dL AST 35 (14-36) IU/L ALT 27 (<35) IU/L Alkaline Phosphatase 83 (38-126) U/L Total Creatine Kinase 41 (30-135) U/L CK-MB (CK-2) TNP CK-MB (CK-2) Rel Index TNP Troponin I < 0.012 (0.01-0.034) ng/mL Total Protein 7.3 (6.3-8.2) g/dL Albumin 4.3 (3.5-5.0) g/dL Globulin 3.0 (1.7-4.1) g/dL Albumin/Globulin Ratio 1.4 (1.0-2.8) Lipase 53 (23-300) U/L Urine Dip Bedside Urine Glucose Negative Bedside Urine Bilirubin - Negative Bedside Urine Ketone - Negative Urine Specific [place] 1.010 Bedside Urine Occult Blood - Negative Bedside Urine pH 7.5 Bedside Urine Protein - Negative Bedside Urine Urobilinogen - Negative Bedside Urine Nitrite - Negative Bedside Urine Leukocytes - Negative Esterase ECG Data Attestation: I personally reviewed and interpreted this ECG as follows: Interpretation: The patient's EKG obtained on September 07 at 14: 5A: 1 7 reveals a sinus rhythm with frequent premature ventricular contractures with a compensatory pause. Ventricular rate is 63. Intervals are normal. QTC is normal and not prolonged. Patient has a left axis deviation. The patient has a Q-wave in V1 with normal T-wave. Lead III has an inverted T-wave. T-waves are flattened in leads V3, V4, V5, V6,. There is no signs of ischemia or acute diagnostic ST or T-wave changes. Discharge Plan Departure Patient Disposition: Home Clinical Impression: Dizziness, Essential hypertension Discharge Date/Time: 09/07/19 20:48 Instructions: Orthostatic Hypotension, DI for Dizziness-Nonvertigo Activity Restrictions/Additional Instructions: Follow-up with Dr. Ignacio and continue to take your medications as prescribed. As we discussed create a grapht record and documenting your systolic and diastolic blood pressures on the graph so that a pattern over time is created. Your blood pressure on blood pressure medicine will be in the range normally expected most of the time. However despite the medications you will intermittently still continued to spike higher than normal blood pressures. There is nothing to worry about unless it you are symptomatic with chest pain shortness of breath headache. Dizziness and lightheadedness is going to occur when you suddenly change or position from a lying down to standing position. This is normal because your blood pressure medications exaggerates the normal physiological response to changing position. You need to hold onto things to stabilize herself and after a minute or 2 the dizziness should resolve. Follow up with the blood pressure specialist you are referred to by Dr. Ignacio. Prescriptions: Continued fluoxetine 20 mg tablet 20 mg PO DAILY RF: 0 No Action amlodipine 5 mg tablet 10 mg PO DAILY Qty: 180 RF: 0 (DME) blood pressure kit Qty: 1 RF: 0 spironolactone 25 mg tablet 25 mg PO BID Qty: 60 RF: 0 losartan 50 mg tablet 50 mg PO BID RF: 0 simvastatin 20 mg tablet 20 mg PO BEDTIME RF: 0 fluticasone propionate [Flonase Allergy Relief] 9.9 ML spray,suspension 1 spray Intranasal DAILY RF: 0 atenolol 50 mg tablet 50 mg PO BID RF: 0 Referrals: Jose Juan Ignacio MD [Primary Care Provider] -
[2019-09-07] MEDS: SODIUM CHLORIDE 0.9% 1,000 ML 1000 ML IV (18:50)
[2019-09-07] MEDS: atenoloL 50 MG TABLET PO (19:38)
[2019-09-07] MEDS: LOSARTAN 50 MG TABLET PO (19:38)
== END 2019-09-07 20:48 | disposition home or self-care (01) ==
PROVIDERS: Emergency Provider Emergency Medicine; PCP Family Medicine
DX: R42 Dizziness and giddiness (principal); I10 Essential (primary) hypertension
CPT/HCPCS: 36415; 71045; 80053; 81003; 82550; 83690; 84484; 85025; 85610; 85730; 93005; 96360; 99284

== ENCOUNTER → 2019-09-17 07:46 | Outpatient (CLI) | payer MEDICARE, SELFPAY | PROVIDERS: PCP Family Medicine; Referring Provider Family Medicine; Visit Provider Family Medicine | DX: I10 Essential (primary) hypertension (principal); Z53.9 Procedure and treatment not carried out, unspecified reason ==

== ENCOUNTER → 2019-10-17 10:25 | Outpatient (CLI) | payer MEDICARE, SELFPAY ==
[2019-10-17 11:55] LABS: BUN Creatinine Ratio 28.1 (6-22); Blood Urea Nitrogen 16 mg/dL (7-17); Calcium 9.1 mg/dL (8.4-10.2); Carbon Dioxide 25 mmol/L (22-32); Chloride 100 mmol/L (98-107); Cholesterol 159 mg/dL (140-199); Estimated Glomerular Filt Rate > 60.0 mL/min (>60); Glucose 94 mg/dL (80-110); HDL Cholesterol 45 mg/dL (40-60); HEMOLYSIS < 15 (0-50); LDL Cholesterol Calculated 93 mg/dL (<100); Potassium 3.9 mmol/L (3.4-5.1); Sodium 133 mmol/L (137-145); Triglycerides 107 mg/dL (35-150)
== END ==
PROVIDERS: PCP Family Medicine; Referring Provider Family Medicine; Visit Provider Family Medicine
DX: I10 Essential (primary) hypertension (principal)
CPT/HCPCS: 36415; 80048; 80061

== ENCOUNTER → 2019-10-20 10:08 | Outpatient (CLI) | payer MEDICARE, SELFPAY ==
--- NOTE | 2019-10-20 10:11 | DI.RAD.S_ITS ---
PROCEDURE: XR CHEST 2V INDICATIONS: Left upper AC pain and swellilng TECHNIQUE: 2 views of the chest were acquired. COMPARISON: [facility], CR, XR CHEST 1V, 09/07/2019, 15:35. FINDINGS: Surgical changes and devices: None. Lungs and pleura: Lungs are clear. No pleural effusions or pneumothorax. Mediastinum: Mediastinal contours are normal. Heart size is normal. Bones and chest wall: No suspicious bony abnormalities. Soft tissues appear unremarkable. IMPRESSION: Normal chest. Dictated by: Sari Naylor M.D. on 10/20/2019 at 10:32 Approved by: Sari Naylor M.D. on 10/20/2019 at 10:33
== END ==
PROVIDERS: PCP Family Medicine; Referring Provider Nurse Practitioner; Visit Provider Nurse Practitioner
DX: M25.512 Pain in left shoulder (principal); M25.412 Effusion, left shoulder
CPT/HCPCS: 71046

== ENCOUNTER → 2019-10-23 14:03 | Outpatient (CLI) | payer MEDICARE, SELFPAY ==
[2019-10-25 20:37] LABS: Metanephrine,Plasma 18 pg/mL (0-62)
[2019-10-28 17:57] LABS: Aldosterone/Renin Activity Rat 35.9 (0.0-30.0); Plama Renin, LC/MS/MS 0.612 ng/mL/hr (0.167-5.380)
== END ==
PROVIDERS: PCP Family Medicine; Referring Provider Internal Medicine Cardiovascular Disease; Visit Provider Internal Medicine Cardiovascular Disease
DX: I15.9 Secondary hypertension, unspecified (principal); I11.9 Hypertensive heart disease without heart failure
CPT/HCPCS: 36415; 82088; 83835; 84244

== ENCOUNTER → 2019-10-26 11:30 | Outpatient (CLI) | payer MEDICARE, SELFPAY | PROVIDERS: PCP Family Medicine; Referring Provider Internal Medicine Cardiovascular Disease; Visit Provider Internal Medicine Cardiovascular Disease | DX: I15.9 Secondary hypertension, unspecified (principal); I11.9 Hypertensive heart disease without heart failure | CPT/HCPCS: 83835 ==

== ENCOUNTER → 2019-12-20 07:48 | Outpatient (CLI) | payer MEDICARE, SELFPAY ==
--- NOTE | 2019-12-20 | DI.ECHO.S_ITS ---
[facility]---------+ [facility] +---------+ : : [address] : : : : [id number] : : : : Phone: [phone] Echocardiogram Report + + :Name: NOE ALICIA Study Date: 12/20/2019 Height: 64 in : :[facility] Weight: 174 lb : : Gender: Female BSA: 1.8 m2 : :: 1945 Age: 74 yrs BP: 130/78 mmHg: :Reason For Study: Hypertension : :Ordering Physician: Alex Perry : :Williams Performed By: Brittnee Lopez : :Referring: ALEX KRAMER : + + Interpretation Summary 1) Normal left ventricular thickness, size, wall motion, and systolic function (EF 60-65%). 2) Normal right ventricular size and function. 3) No significant valvular abnormalities. 4) No prior Echo avaialble for comparison. Procedure: A two-dimensional transthoracic echocardiogram with color flow and Doppler was performed. The study quality was technically adequate. There is no prior echocardiogram noted for this patient. The patient was in sinus bradycardia with heart rates between 50-68 bpm during the exam. Left Ventricle: The left ventricle is normal in size and wall thickness. The ejection fraction is estimated to be 60-65%. Left ventricular wall motion is normal. Right Ventricle: The right ventricle is normal in size and function. Atria: Both atria are normal in size. The interatrial septum appears mobile without color doppler evidence of shunt. Mitral Valve: The mitral valve is normal in structure and function. There is trace mitral regurgitation. Aortic Valve: The aortic valve is grossly normal. The aortic valve opens well. There is no aortic valve stenosis. No aortic regurgitation is present. Tricuspid Valve: The tricuspid valve is normal in structure and function. There is a trace or physiologic amount of tricuspid regurgitation. Pulmonary artery pressures cannot be estimated because of the lack of a measurable TR jet velocity but the IVC suggests a CVP of around 3 mmHg. Pulmonic Valve: The pulmonic valve is not well visualized. There is no pulmonic valvular regurgitation. Great Vessels: The aortic root is normal size. The ascending aorta could not be visualized. The IVC is of normal diameter and collapses greater than 50% with a sniff. This suggests a low right atrial pressure of 3 mm Hg. Pericardium/ Pleura There is no pericardial effusion. There is no pleural effusion. MMode/2D Measurements & Calculations LVIDd: 4.9 cm LVOT diam: 2.3 cm LVIDs: 3.1 cm Ao root diam: 3.2 cm FS: 36.9 % Ao Arch Diam (Prox Trans): 2.9 cm EPSS: 0.55 cm IVSd: 0.91 cm LVPWd: 0.84 cm LV madden. diameter/BSA (cm/m^2): 2.7 LV sys. diameter/BSA (cm/m^2): 1.7 LA A2 area: 17.1 cm2 RA long axis: 4.9 cm LA A4 area: 17.4 cm2 RA area: 15.9 cm2 LA length (vol): 5.4 cm RA vol: 43.9 ml LA vol: 46.6 ml RA : 23.8 ml/m2 LA vol index: 25.3 ml/m2 IVC diam: 1.1 cm RVD1 (basal): 3.4 cm Doppler Measurements & Calculations Ao V2 max: 157.1 cm/sec LVOT Max Pete: 96.9 cm/sec Ao V2 mean: 100.5 cm/sec LV V1 max P.8 mmHg Ao max P.9 mmHg LV V1 VTI: 23.4 cm Ao mean P.7 mmHg DARIO(I,D): 3.0 cm2 Ao V2 VTI: 31.5 cm DARIO(V,D): 2.5 cm2 sev ratio: 0.74 DARIO indexed to BSA (cm^2/m^2): 1.6 MV E max pete: 65.9 cm/sec PA V2 max: 70.5 cm/sec MV A max pete: 75.1 cm/sec PA V2 mean: 42.5 cm/sec MV E/A: 0.88 PA mean P.89 mmHg Med Peak E' Pete: 6.6 cm/sec E/E' med: 9.9 Lat Peak E' Pete: 14.4 cm/sec E/E' lat: 4.6 E/e' average: 7.3 MV dec time: 0.20 sec SV(LVOT): 93.7 ml Reading Physician:10:30 AM
== END ==
PROVIDERS: PCP Family Medicine; Referring Provider Internal Medicine Cardiovascular Disease; Visit Provider Internal Medicine Cardiovascular Disease
DX: I11.9 Hypertensive heart disease without heart failure (principal)
CPT/HCPCS: 93306

== ENCOUNTER → 2019-12-27 11:35 | Outpatient (CLI) | payer MEDICARE, SELFPAY ==
[2019-12-27 12:14] LABS: Albumin 4.4 g/dL (3.5-5.0); Blood Urea Nitrogen 29 mg/dL (7-17); Calcium 9.9 mg/dL (8.4-10.2); Carbon Dioxide 24 mmol/L (22-32); Chloride 103 mmol/L (98-107); Estimated Glomerular Filt Rate > 60.0 mL/min (>60); Glucose 94 mg/dL (80-110); HEMOLYSIS < 15 (0-50); Phosphorous 4.8 mg/dL (2.8-4.1); Potassium 4.9 mmol/L (3.4-5.1); Sodium 136 mmol/L (137-145)
== END ==
PROVIDERS: PCP Family Medicine; Referring Provider Internal Medicine Nephrology; Visit Provider Internal Medicine Nephrology
DX: E26.9 Hyperaldosteronism, unspecified (principal); I10 Essential (primary) hypertension; I70.1 Atherosclerosis of renal artery
CPT/HCPCS: 36415; 80069

== ENCOUNTER → 2020-01-10 15:58 | Outpatient (CLI) | payer MEDICARE, SELFPAY ==
[2020-01-10 17:17] LABS: Free T3, Triiodothyronine Free 2.92 pg/mL (2.77-5.27); Free T4, Direct Thyroxine 0.92 ng/dL (0.78-2.19)
[2020-01-10 17:30] LABS: Thyroid Stimulating Hormone 3.93 uIU/mL (0.47-4.68)
== END ==
PROVIDERS: PCP Family Medicine; Referring Provider Family Medicine; Visit Provider Family Medicine
DX: E03.9 Hypothyroidism, unspecified (principal)
CPT/HCPCS: 36415; 84439; 84443; 84481

== ENCOUNTER → 2020-01-23 09:12 | Outpatient (CLI) | payer MEDICARE, SELFPAY ==
[2020-01-23 10:57] LABS: Albumin 3.9 g/dL (3.5-5.0); BUN Creatinine Ratio 33.3 (6-22); Blood Urea Nitrogen 21 mg/dL (7-17); Calcium 9.2 mg/dL (8.4-10.2); Carbon Dioxide 23 mmol/L (22-32); Chloride 102 mmol/L (98-107); Estimated Glomerular Filt Rate > 60.0 mL/min (>60); Glucose 89 mg/dL (80-110); HEMOLYSIS < 15 (0-50); Phosphorous 3.8 mg/dL (2.8-4.1); Potassium 4.6 mmol/L (3.4-5.1); Sodium 133 mmol/L (137-145)
== END ==
PROVIDERS: PCP Family Medicine; Referring Provider Internal Medicine Nephrology; Visit Provider Internal Medicine Nephrology
DX: E26.9 Hyperaldosteronism, unspecified (principal); I10 Essential (primary) hypertension
CPT/HCPCS: 36415; 80069; 82088; 82384

== ENCOUNTER → 2020-11-05 12:38 | Outpatient (CLI) | payer MEDICARE, SELFPAY ==
[2020-11-05 13:00] LABS: COVID19 -Nasal RAPID Negative (Negative)
== END ==
PROVIDERS: PCP Family Medicine; Visit Provider Student in an Organized Health Care Education/Training Program
DX: Z20.822 Contact with and (suspected) exposure to COVID-19 (principal)
CPT/HCPCS: 87635

== ENCOUNTER 2020-11-05 13:42 | Emergency (ER) | payer MEDICARE, SELFPAY ==
[2020-11-05 13:57] VITALS: BP 136/84; PULSE 63; RESP 22; TEMP 37.1; O2SAT 98
--- NOTE | 2020-11-05 14:06 | DI.RAD.S_ITS ---
PROCEDURE: XR CHEST 1V INDICATIONS: suspected sepsis TECHNIQUE: One view of the chest was acquired. COMPARISON: [facility], CR, XR CHEST 2V, 10/20/2019, 9:15. FINDINGS: Surgical changes and devices: None. Lungs and pleura: Lungs are clear. No pleural effusions or pneumothorax. Mediastinum: Mediastinal contours appear normal. Heart size is normal. Bones and chest wall: No suspicious bony lesions. Overlying soft tissues appear unremarkable. IMPRESSION: No acute process. Dictated by: Dale Mike M.D. on 11/05/2020 at 14:26 Approved by: Dale Mike M.D. on 11/05/2020 at 14:28
[2020-11-05 14:34] LABS: Prothrombin Time 11.2 SECONDS (10.1-12.7)
[2020-11-05 14:36] LABS: Alanine Aminotransferase 27 IU/L (<35); Albumin 4.4 g/dL (3.5-5.0); Albumin Globulin Ratio 1.5 (1.0-2.8); Alkaline Phosphatase 53 U/L (38-126); Aspartate Aminotransferase 30 IU/L (14-36); BUN Creatinine Ratio 29.3 (6-22); Bilirubin Total 0.4 mg/dL (0.2-1.3); Blood Urea Nitrogen 24 mg/dL (7-17); Calcium 9.6 mg/dL (8.4-10.2); Carbon Dioxide 25 mmol/L (22-32); Chloride 93 mmol/L (98-107); Estimated Glomerular Filt Rate > 60.0 mL/min (>60); Globulin 2.9 g/dL (1.7-4.1); Glucose 97 mg/dL (80-110); HEMOLYSIS < 15 (0-50); Lipase 78 U/L (23-300); Potassium 4.8 mmol/L (3.4-5.1); Sodium 127 mmol/L (137-145); Total Protein 7.3 g/dL (6.3-8.2)
[2020-11-05 14:37] LABS: Lactate (Lactic Acid) 0.8 mmol/L (0.7-2.1); PTT Partial Thromboplastin Tim 32 SECONDS (26.4-36.2)
[2020-11-05 14:41] LABS: Add Manual Diff / Slide Review NO; Basophils Absolute Auto 100 /uL (0-100); Basophils Percent Auto 0.7 % (0-2); Eosinophils Absolute Auto 100 /uL (0-450); Eosinophils Percent Auto 1.3 % (2-4); Hemoglobin 12.9 g/dL (12.0-16.0); Lymphocytes Absolute Auto 1400 /uL (1100-4500); Lymphocytes Percent Auto 19.1 % (25-40); Mean Corpuscular HGB Conc 33.9 % (30-36); Mean Corpuscular Hemoglobin 30.4 PG (26-34); Mean Corpuscular Volume 89.5 fL (80-100); Monocytes Absolute Auto 600 /uL (0-900); Monocytes Percent Auto 7.7 % (3-14); Neutrophils Absolute Auto 5200 /uL (1500-7000); Neutrophils Percent Auto 71.2 % (50-75); Platelet Count 331 X10^3/uL (150-400); Red Blood Cell Count 4.24 X10^6/uL (4.0-5.2); Red Cell Distribution Width 13.8 % (11.6-14.8); White Blood Cell Count 7.3 X10^3/uL (4.5-11.0)
[2020-11-05 14:53] LABS: Procalcitonin < 0.03 ng/mL (<0.5)
--- NOTE | 2020-11-05 16:58 | ED_ITS ---
HPI - Weakness General Chief complaint: Weakness Stated complaint: states a virus last week, weak ever since. Time Seen by Provider: 11/05/20 16:57 Source: patient Mode of arrival: Ambulatory Limitations: no limitations History of Present Illness HPI Narrative: Patient is a 75-year-old female who presents with increasing weakness. She had gastroenteritis 1 week ago which lasted for 24 hours. She said she had multiple episodes of liquid diarrhea for about 24 hours and severe heartburn she did have any nausea or abdominal pain. She says since then she has had increasing weakness. However over last 4 days she has been able to start eating her food she was previously just on broth and clear liquids. She s ays she just isn't getting quite her strength back. She continues to have cold sweats sometimes. She denies chest pain shortness breath palpitations dizziness or lightheadedness. MD Complaint: generalized weakness Related Data Home Medications Medication Instructions Recorded Confirmed fluticasone propionate [Flonase 1 spray INTRANASAL DAILY 09/07/19 05/12/20 Allergy Relief] Previous Rx's Medication Instructions Recorded blood pressure kit #1 ea 08/14/19 atenolol 50 mg tablet 50 mg PO BID #180 tab 02/28/20 fluoxetine 20 mg capsule 40 mg PO DAILY #180 cap 02/28/20 rosuvastatin 20 mg tablet 20 mg PO DAILY #90 tab 02/28/20 spironolactone 25 mg tablet See Rx Instructions .ROUTE 02/28/20 .COMPLEX #180 tab varicella-zoster glycoE [id number] 0.5 ml IM ONCE #1 each 05/12/20 adj(PF) 50 mcg/0.5 mL IM susp, kit losartan 50 mg tablet 50 mg PO BID #180 tab 10/10/20 Allergies Allergy/AdvReac Type Severity Reaction Status Date / Time azithromycin [AZITHROMYCIN] Allergy Severe THROAT Verified 11/05/20 12:37 SWELLING & SOB sulfamethoxazole AdvReac Mild INSOMNIA Verified 11/05/20 12:37 [From BACTRIM] trimethoprim [From BACTRIM] AdvReac Mild INSOMNIA Verified 11/05/20 12:37 Review of Systems Review of Systems ROS Unobtainable: All systems reviewed & are unremarkable except as noted in HPI and below Constitutional Constitutional: Reports fatigue, Denies fever(s), Denies frequent falls and Denies headache(s) ENT Ears, Nose, Mouth, and Throat: Denies headache(s) Cardiovascular Cardiovascular: Denies chest pain, Denies irregular heart rhythm, Denies lightheadedness, Denies palpitations, Denies dyspnea, Denies dyspnea on exertion and Denies orthopnea Respiratory Respiratory: Denies cough, Denies dyspnea, Denies dyspnea on exertion and Denies wheezing Gastrointestinal Gastrointestinal: Reports as per HPI Musculoskeletal Musculoskeletal: Denies myalgias Integumentary/Breasts Skin/Breast: Denies pruritus, Denies erythema, Denies rash and Denies wounds Neurologic Neurologic: Denies frequent falls and Denies headache(s) Endocrine Endocrine: Reports fatigue and Denies palpitations Allergic/Immunologic Allergic/Immunologic: Denies wheezing Patient History Medical History (Updated 11/05/20 @ 17:21 by Chrissie Arreguin DO) Hyperlipidemia Hypertension Renal artery stenosis (~10/08/19) Surgical History Status post vaginal hysterectomy Social History Smoking Status: Never smoker Smoking Status: Never smoker alcohol intake frequency: holidays/special occasions only Substance Use Type: does not use Exam Initial Vital Signs Initial Vital Signs: Vital Signs Temperature 98.7 F 11/05/20 13:57 Pulse Rate 63 11/05/20 13:57 Respiratory Rate 22 11/05/20 13:57 Blood Pressure 136/84 11/05/20 13:57 Pulse Oximetry 98 11/05/20 13:57 GENERAL: Well-appearing, well-nourished and in no acute distress. HEENT: Head atraumatic,EOMI, pupils reactive, face symmetric, moist mucous membranes CARDIOVASCULAR: Regular rate and rhythm without murmurs, rubs or gallops. RESPIRATORY: Breath sounds equal bilaterally, no wheezes rales or rhonchi. ABDOMEN: Soft, nontender. Normoactive bowel sounds all 4 quadrants. No guarding or rebound. EXTREMITIES: Normal range of motion, no clubbing or edema. Neurovascularly intact NEUROLOGICAL: Alert and oriented x4.Normal gait and speech. Cranial nerves II through XII grossly intact. [employer] strength equal bilaterally SKIN: Warm, dry, no laceration, no petechiae, no rashes or lesions. Course Orders Ordered: ED Orders 11/05/20 14:02 EKG-12 Lead Stat 11/05/20 14:06 XR chest 1V Stat 11/05/20 14:15 Complete Blood Count AUTO DIFF Stat Comprehensive Metabolic Panel Stat Lactate (Lactic Acid) Stat Lipase Stat Partial Thromboplastin Time Stat Procalcitonin Stat Prothrombin Time INR Stat Vital Signs Vital signs: Vital Signs - 8 hr 11/05/20 13:57 11/05/20 17:30 Temperature 98.7 F Pulse Rate 63 63 Respiratory Rate 22 16 Blood Pressure 136/84 173/94 H Pulse Oximetry 98 99 MDM - Weakness Lab Data Attestation: I reviewed the patient's lab results. Result diagrams: 11/05/20 14:15 11/05/20 14:15 Labs: Lab Results 11/05/20 11/05/20 11/05/20 Range/Units 14:15 14:15 14:15 WBC 7.3 (4.5-11.0) X10^3/uL RBC 4.24 (4.0-5.2) X10^6/uL Hgb 12.9 (12.0-16.0) g/dL Hct 38.0 (36-46) % MCV 89.5 (80-100) fL MCH 30.4 (26-34) PG MCHC 33.9 (30-36) % RDW 13.8 (11.6-14.8) % Plt Count 331 (150-400) X10^3/uL Neut % (Auto) 71.2 (50-75) % Lymph % (Auto) 19.1 L (25-40) % [place] % (Auto) 7.7 (3-14) % Eos % (Auto) 1.3 L (2-4) % Baso % (Auto) 0.7 (0-2) % Neut # (Auto) 5200 (3405-8999) /uL Lymph # (Auto) 1400 (6661-6987) /uL [place] # (Auto) 600 (0-900) /uL Eos # (Auto) 100 (0-450) /uL Baso # (Auto) 100 (0-100) /uL PT 11.2 (10.1-12.7) SECONDS INR 1.0 (0.9-1.3) APTT 32 (26.4-36.2) SECONDS Sodium 127 L (137-145) mmol/L Potassium 4.8 (3.4-5.1) mmol/L Chloride 93 L (98-107) mmol/L Carbon Dioxide 25 (22-32) mmol/L BUN 24 H (7-17) mg/dL Creatinine 0.82 (0.52-1.04) mg/dL Estimated GFR > 60.0 (>60) mL/min BUN/Creatinine Ratio 29.3 H (6-22) Glucose 97 (80-110) mg/dL Lactate (0.7-2.1) mmol/L Calcium 9.6 (8.4-10.2) mg/dL Total Bilirubin 0.4 (0.2-1.3) mg/dL AST 30 (14-36) IU/L ALT 27 (<35) IU/L Alkaline Phosphatase 53 (38-126) U/L Total Protein 7.3 (6.3-8.2) g/dL Albumin 4.4 (3.5-5.0) g/dL Globulin 2.9 (1.7-4.1) g/dL Albumin/Globulin Ratio 1.5 (1.0-2.8) Lipase 78 (23-300) U/L Procalcitonin < 0.03 (<0.5) ng/mL 11/05/20 Range/Units 14:15 WBC (4.5-11.0) X10^3/uL RBC (4.0-5.2) X10^6/uL Hgb (12.0-16.0) g/dL Hct (36-46) % MCV (80-100) fL MCH (26-34) PG MCHC (30-36) % RDW (11.6-14.8) % Plt Count (150-400) X10^3/uL Neut % (Auto) (50-75) % Lymph % (Auto) (25-40) % [place] % (Auto) (3-14) % Eos % (Auto) (2-4) % Baso % (Auto) (0-2) % Neut # (Auto) (4321-2102) /uL Lymph # (Auto) (0788-3819) /uL [place] # (Auto) (0-900) /uL Eos # (Auto) (0-450) /uL Baso # (Auto) (0-100) /uL PT (10.1-12.7) SECONDS INR (0.9-1.3) APTT (26.4-36.2) SECONDS Sodium (137-145) mmol/L Potassium (3.4-5.1) mmol/L Chloride (98-107) mmol/L Carbon Dioxide (22-32) mmol/L BUN (7-17) mg/dL Creatinine (0.52-1.04) mg/dL Estimated GFR (>60) mL/min BUN/Creatinine Ratio (6-22) Glucose (80-110) mg/dL Lactate 0.8 (0.7-2.1) mmol/L Calcium (8.4-10.2) mg/dL Total Bilirubin (0.2-1.3) mg/dL AST (14-36) IU/L ALT (<35) IU/L Alkaline Phosphatase (38-126) U/L Total Protein (6.3-8.2) g/dL Albumin (3.5-5.0) g/dL Globulin (1.7-4.1) g/dL Albumin/Globulin Ratio (1.0-2.8) Lipase (23-300) U/L Procalcitonin (<0.5) ng/mL Urine Dip Bedside Urine Glucose Negative Bedside Urine Bilirubin - Negative Bedside Urine Ketone - Negative Urine Specific [place] 1.020 Bedside Urine Occult Blood - Negative Bedside Urine pH 6 Bedside Urine Urobilinogen - Negative Bedside Urine Nitrite - Negative Bedside Urine Leukocytes - Negative Esterase Imaging Data Chest x-ray: Radiologist Impression: PROCEDURE: XR CHEST 1V INDICATIONS: suspected sepsis TECHNIQUE: One view of the chest was acquired. COMPARISON: [facility], , XR CHEST 2V, 10/20/2019, 9:15. FINDINGS: Surgical changes and devices: None. Lungs and pleura: Lungs are clear. No pleural effusions or pneumothorax. Mediastinum: Mediastinal contours appear normal. Heart size is normal. Bones and chest wall: No suspicious bony lesions. Overlying soft tissues appear unremarkable. IMPRESSION: No acute process. Dictated by: Dale Mike M.D. on 11/05/2020 at 14:26 ECG Data Attestation: I personally reviewed and interpreted this ECG as follows: Interpretation: Sinus rhythm rate [address] changes or T-wave inversions MDM Narrative Medical decision making narrative: Patient's only abnormality is mild hyponatremia of 127. She had 24 hours of diarrhea which seems to have resolved. She is increasing her diet as tolerated. She says she just is fatigued but there is no infection at this time she is not requiring any antibiotics. In fact at this time she states that she is ready to go home. I recommend that she continue to increase her diet slowly she is offered anti nausea medication but she denies any nausea. I recommend that she have her sodium rechecked with her primary care provider later this week. Discharge Plan Departure Patient Disposition: Home Clinical Impression: Acute hyponatremia, Gastroenteritis Instructions: DI for Viral Gastroenteritis -- Adult Activity Restrictions/Additional Instructions: *You have been diagnosed with sodium 127 and gastroenteritis *What to do: Continue to increase food as tolerated and drink fluids. I recommend having her sodium rechecked with her PCP. It is slightly low but unli gabriel to be causing all of your symptoms. At this time there is no need for antibiotics. *Continue to take medications as directed *Follow up with your primary care provider in 2-3 days *Return to ER if you should have increasing pain, diarrhea, vomiting or any new, worsening or concerning symptoms Prescriptions: No Action fluoxetine 20 mg capsule 40 mg PO DAILY Qty: 180 RF: 1 atenolol 50 mg tablet 50 mg PO BID Qty: 180 RF: 1 rosuvastatin 20 mg tablet 20 mg PO DAILY Qty: 90 RF: 1 spironolactone 25 mg tablet See Rx Instructions .ROUTE .COMPLEX Qty: 180 RF: 1 losartan 50 mg tablet 50 mg PO BID Qty: 180 RF: 1 (DME) blood pressure kit Qty: 1 RF: 0 Shingrix (PF) 50 mcg/0.5 mL suspension for reconstitution 0.5 ml IM ONCE Qty: 1 RF: 0 fluticasone propionate [Flonase Allergy Relief] 9.9 ML spray,suspension 1 spray Intranasal DAILY RF: 0 Referrals: Philip June MD [Primary Care Provider] -
[2020-11-05 17:30] VITALS: BP 173/94; PULSE 63; RESP 16; O2SAT 99
== END 2020-11-05 17:30 | disposition home or self-care (01) ==
PROVIDERS: Emergency Provider Emergency Medicine; PCP Family Medicine
DX: A08.4 Viral intestinal infection, unspecified (principal); Z20.822 Contact with and (suspected) exposure to COVID-19
CPT/HCPCS: 36415; 71045; 80053; 81003; 83605; 83690; 84145; 85025; 85610; 85730; 87635; 93005; 99284

== ENCOUNTER → 2020-11-19 11:22 | Outpatient (CLI) | payer MEDICARE, SELFPAY ==
[2020-11-19 11:54] LABS: Add Manual Diff / Slide Review NO; Basophils Absolute Auto 0 /uL (0-100); Basophils Percent Auto 0.4 % (0-2); Eosinophils Absolute Auto 100 /uL (0-450); Eosinophils Percent Auto 0.9 % (2-4); Hemoglobin 12.2 g/dL (12.0-16.0); Lymphocytes Absolute Auto 1000 /uL (1100-4500); Lymphocytes Percent Auto 11.8 % (25-40); Mean Corpuscular HGB Conc 33.9 % (30-36); Mean Corpuscular Hemoglobin 30.5 PG (26-34); Mean Corpuscular Volume 90.1 fL (80-100); Monocytes Absolute Auto 1100 /uL (0-900); Monocytes Percent Auto 12.8 % (3-14); Neutrophils Absolute Auto 6200 /uL (1500-7000); Neutrophils Percent Auto 74.1 % (50-75); Platelet Count 270 X10^3/uL (150-400); Red Cell Distribution Width 13.6 % (11.6-14.8); White Blood Cell Count 8.3 X10^3/uL (4.5-11.0)
[2020-11-19 12:17] LABS: Alanine Aminotransferase 42 IU/L (<35); Albumin Globulin Ratio 1.3 (1.0-2.8); Alkaline Phosphatase 65 U/L (38-126); Aspartate Aminotransferase 46 IU/L (14-36); BUN Creatinine Ratio 33.8 (6-22); Bilirubin Total 0.5 mg/dL (0.2-1.3); Blood Urea Nitrogen 23 mg/dL (7-17); Calcium 9.4 mg/dL (8.4-10.2); Carbon Dioxide 26 mmol/L (22-32); Chloride 96 mmol/L (98-107); Estimated Glomerular Filt Rate > 60.0 mL/min (>60); Globulin 3.1 g/dL (1.7-4.1); Glucose 103 mg/dL (80-110); HEMOLYSIS < 15 (0-50); Lipase 55 U/L (23-300); Potassium 4.9 mmol/L (3.4-5.1); Sodium 129 mmol/L (137-145); Total Protein 7.1 g/dL (6.3-8.2)
== END ==
PROVIDERS: PCP Family Medicine; Referring Provider Family Medicine; Visit Provider Family Medicine
DX: E87.1 Hypo-osmolality and hyponatremia (principal); A04.72 Enterocolitis due to Clostridium difficile, not specified as recurrent; K52.9 Noninfective gastroenteritis and colitis, unspecified; R10.9 Unspecified abdominal pain
CPT/HCPCS: 36415; 80053; 83690; 85025

== ENCOUNTER → 2020-11-20 07:52 | Outpatient (CLI) | payer MEDICARE, SELFPAY ==
[2020-11-21 16:57] LABS: Clostridium Difficile Tox PCR Negative for C. diff
== END ==
PROVIDERS: PCP Family Medicine; Referring Provider Family Medicine; Visit Provider Family Medicine
DX: E87.1 Hypo-osmolality and hyponatremia (principal); R10.9 Unspecified abdominal pain; R19.7 Diarrhea, unspecified; A04.72 Enterocolitis due to Clostridium difficile, not specified as recurrent
CPT/HCPCS: 87045; 87177; 87493; 87899

== ENCOUNTER → 2020-11-21 11:16 | Outpatient (CLI) | payer MEDICARE, SELFPAY ==
--- NOTE | 2020-11-21 11:17 | DI.CT.S_ITS ---
PROCEDURE: CT ABDOMEN PELVIS W CON INDICATIONS: severe diarrhea/abdominal pain TECHNIQUE: After the administration of intravenous contrast, 5 mm thick sections acquired from the diaphragm to the symphysis. 5 mm coronal and sagittal reformats were acquired. For radiation dose reduction, the following was used: automated exposure control, adjustment of mA and/or kV according to patient size. COMPARISON: [facility], CT, ABDOMEN/PELVIS WITH CONTRAST, 10/31/2014, 13:39. FINDINGS: Image quality: Excellent. ABDOMEN: Lung bases: Lung bases are clear. Heart size is normal. Solid organs: Liver is normal in size and enhancement. Gallbladder is unremarkable. Biliary system is non dilated. Pancreas enhances normally. Spleen is normal in size and enhancement. No adrenal nodules. Kidneys demonstrate normal size and enhancement, without hydronephrosis. Peritoneum and bowel: Rectal thickening and distal sigmoid thickening in the presence of extensive diverticulosis. Inflammatory change in the surrounding fat. Bowel loops otherwise demonstrate normal wall thickness and caliber. No free fluid or air. Nodes and vessels: No retroperitoneal or mesenteric adenopathy by size criteria. Aorta and inferior vena cava are normal in size. Miscellaneous: No ventral hernias. PELVIS: Genitourinary: Bladder wall thickness is normal. Miscellaneous: No inguinal hernias or adenopathy. Uterus is surgically absent. Bones: No suspicious bony lesions. No vertebral body compression fractures. IMPRESSION: 1. Diffuse rectal thickening and distal sigmoid thickening in the presence of extensive diverticulosis with inflammatory change in the surrounding fat. Consider acute diverticulitis versus infectious colitis. This is not a typical segment of bowel for bowel ischemia. Dictated by: Chao Turcios M.D. on 11/21/2020 at 12:50 Approved by: Chao Turcios M.D. on 11/21/2020 at 12:59
== END ==
PROVIDERS: PCP Family Medicine; Referring Provider Family Medicine; Visit Provider Family Medicine
DX: E87.1 Hypo-osmolality and hyponatremia (principal); A04.72 Enterocolitis due to Clostridium difficile, not specified as recurrent; K52.9 Noninfective gastroenteritis and colitis, unspecified; K57.30 Diverticulosis of large intestine without perforation or abscess without bleeding; R10.9 Unspecified abdominal pain
CPT/HCPCS: 74177

== ENCOUNTER → 2021-01-13 15:46 | Outpatient (CLI) | payer MEDICARE, SELFPAY ==
--- NOTE | 2021-01-13 15:49 | DI.MG.S_ITS ---
BILATERAL DIGITAL SCREENING MAMMOGRAM 3D/2D WITH CAD: 01/13/2021 CLINICAL: Routine screening. Comparison is made to exams dated: 02/06/2019 mammogram, 12/18/2015 mammogram, and 04/18/2013 mammogram - [facility]. There are scattered fibroglandular elements in both breasts. Current study was also evaluated with a Computer Aided Detection (CAD) system. No significant masses, calcifications, or other findings are seen in either breast. There has been no significant interval change. IMPRESSION: NEGATIVE There is no mammographic evidence of malignancy. A 1 year screening mammogram is recommended. This exam was interpreted at Station ID: [id number]. NOTE: For mammograms, a report in lay terms will be sent to the patient. Approximately 15% of breast malignancies will not be visualized mammographically. In the management of a palpable breast mass, a negative mammogram must not discourage biopsy of a clinically suspicious lesion. Electronically Signed By: Malik ponce/pallavi:01/13/2021 16:21:20 letter sent: Normal Exam ACR BI-RADS Category 1: Negative [id number]
== END ==
PROVIDERS: PCP Family Medicine; Referring Provider Family Medicine; Visit Provider Family Medicine
DX: Z12.31 Encounter for screening mammogram for malignant neoplasm of breast (principal)
CPT/HCPCS: 77063; 77067

== ENCOUNTER 2021-08-12 09:41 | Emergency (ER) | payer MEDICARE, SELFPAY ==
[2021-08-12 09:55] VITALS: BP 122/58; PULSE 74; RESP 16; TEMP 36.1; O2SAT 97; BMI 30.2
--- NOTE | 2021-08-12 09:57 | DI.RAD.S_ITS ---
PROCEDURE: XR RIBS LT MIN 3V W CXR1V INDICATIONS: fall/rib pain TECHNIQUE: 2 views of the left ribs were acquired, along with a single view chest. COMPARISON: None. FINDINGS: Surgical changes and devices: None. Bones and chest wall: No fractures or dislocations. No suspicious bony lesions. Overlying soft tissues appear unremarkable. Lungs and pleura: No pleural effusions or pneumothorax. Lungs appear clear. Mediastinum: Mediastinal contours appear normal. Heart size is normal. IMPRESSION: No displaced rib fracture. No acute cardiopulmonary disease process. Dictated by: Trina Cameron MD, PhD on 08/12/2021 at 10:49 Approved by: Trina Cameron MD, PhD on 08/12/2021 at 10:50
--- NOTE | 2021-08-12 10:00 | DI.RAD.S_ITS ---
PROCEDURE: XR KNEE RT 3V INDICATIONS: fall/knee pain TECHNIQUE: 3 views of the knee were acquired. COMPARISON: None. 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 No acute fractures or dislocations. No suspicious bony lesions. Mild tricompartmental osteoarthritis. Soft tissues: No joint effusion. No suspicious soft tissue calcifications. IMPRESSION: No fracture. No acute osseous lesion. If symptoms and/or clinical suspicion for pathology persists, further assessment with repeat radiographs (7-10 days) or advanced imaging (e.g. CT, MRI or bone scan) should be considered. Dictated by: Trina Cameron MD, PhD on 08/12/2021 at 10:47 Approved by: Trina Cameron MD, PhD on 08/12/2021 at 10:48
--- NOTE | 2021-08-12 10:02 | ED.FALL ---
HPI - Fall General Chief Complaint: Fall Stated Complaint: RT TWISTED KNEE/LT SIDE RIB PAIN Time Seen by Provider: 08/12/21 09:45 Source: patient Mode of arrival: Wheelchair History of Present Illness HPI Narrative: 76F nonsmoker presents with a chief complaint of ground level, accidental fall resulting in rib pain and right knee pain. She states that she was in her normal state of health and got out of bed this morning and felt a bit lightheaded, she took a few steps and stumbled to the side landing on her dresser injuring her left side ribs. She denies any head neck or back pain. Also, when she fell she twisted her right knee and may have landed on it. She now has pain which is worse with range of motion and ambulation. She denies any palpitations or chest pain. She denies any hemoptysis Related Data Home Medications Medication Instructions Recorded Confirmed fluticasone propionate 50 1 spray INTRANASAL DAILY 09/07/19 11/19/20 mcg/actuation nasal spray,suspension (Flonase Allergy Relief) Previous Rx's Medication Instructions Recorded blood pressure kit #1 ea 08/14/19 rosuvastatin 20 mg tablet 20 mg PO DAILY #90 tab 02/28/20 atenolol 50 mg tablet 50 mg PO BID #180 tab 02/16/21 fluoxetine 40 mg capsule 40 mg PO DAILY #90 cap 03/10/21 spironolactone 25 mg tablet See Rx Instructions .ROUTE 06/22/21 .COMPLEX #180 tab losartan 50 mg tablet 50 mg PO BID #90 tab 07/06/21 Allergies Allergy/AdvReac Type Severity Reaction Status Date / Time azithromycin [AZITHROMYCIN] Allergy Severe THROAT Verified 11/19/20 10:57 SWELLING & SOB sulfamethoxazole AdvReac Mild INSOMNIA Verified 11/19/20 10:57 [From BACTRIM] trimethoprim [From BACTRIM] AdvReac Mild INSOMNIA Verified 11/19/20 10:57 Review of Systems Review of Systems Narrative: GENERAL: Denies chills, fatigue, malaise, fever, sweats. HEENT: Denies sinus pain, ear pain, sore throat, difficulty swallowing, dizziness. RESPIRATORY: Denies dyspnea, cough, wheezing, hemoptysis, sputum. CARDIOVASCULAR: Denies chest pain, palpitations, orthopnea, edema, GASTROINTESTINAL: Denies nausea, vomiting, abdominal pain, diarrhea, constipation, melena. : Denies dysuria, frequency, incontinence, hematuria, urinary retention. MUSCULOSKELETAL: See HPI SKIN: Denies rash, skin lesions, or other NEUROLOGIC: Denies weakness, headache, numbness, change in speech, confusion, seizures, incoordination. PSYCHIATRIC: No concerning psychosocial issues. 12 point review of systems is negative except for those stated above Patient History Medical History Abdominal pain Hyperlipidemia Hypertension Renal artery stenosis (~10/08/19) Surgical History Status post vaginal hysterectomy Social History Smoking Status: Never smoker Smoking Status: Never smoker alcohol intake frequency: holidays/special occasions only Substance Use Type: does not use Exam Narrative Exam Narrative: GEN: AOx3 and in mild distress EYES: Pupils are equal, round, and reactive to light and accommodation. Extraoccular muscles are intact bilaterally. There is no subconjunctival hemorrhage or exudate. CHEST: Lungs are clear to auscultation bilaterally and free of wheezes, rales, or rhonchi. Heart rate is regular rhythm, there are no murmurs, clicks, rubs, or gallops. Left lateral rib pain to palpation, pinpoint, no crepitance, subcu emphysema, ecchymosis. ABD: Abdomen is soft and nontender. There is no guarding or rebound. Bowel sounds are normal in all 4 quadrants. There is no mass or organomegaly. EXT: Full range of motion of right knee, no pain with axial loading, minimal pain to palpation of lateral joint line. Pain with varus and valgus stress. No effusion SKIN: Warm, pink, and dry. No erythema or rash Initial Vital Signs Initial Vital Signs: Vital Signs Temperature 97.0 F L 08/12/21 09:55 Pulse Rate 74 08/12/21 09:55 Respiratory Rate 16 08/12/21 09:55 Blood Pressure 122/58 L 08/12/21 09:55 Pulse Oximetry 97 08/12/21 09:55 Procedures Orthopedic Splinting/Casting Injury #1: Side: right Lower Extremity Injury Location: knee Lower Extremity Immobilizer: knee immobilizer Course Orders Ordered: ED Orders 08/12/21 09:57 XR ribs LT min 3V w CXR1V Stat 08/12/21 10:00 XR knee RT 3V Stat Vital Signs Vital signs: Vital Signs - 8 hr 08/12/21 09:55 Temperature 97.0 F L Pulse Rate 74 Respiratory Rate 16 Blood Pressure 122/58 L Pulse Oximetry 97 MDM - Fall Imaging Data Chest x-ray: Radiologist's Impression: [address] [address] XRay Report Signed Patient: Maggi Mata MR#: [id number] : 1945 Acct:[id number] Age/Sex: 76 / F Date of Service: 08/12/21 Loc: ED Accession Number: [id number] ?? Procedure: XR ribs LT min 3V w CXR1V Ordering Provider: Rashi Moreland D.O. PROCEDURE:? XR RIBS LT MIN 3V W CXR1V ? INDICATIONS:? fall/rib pain ? TECHNIQUE:? 2 views of the left ribs were acquired, along with a single view chest.? ? COMPARISON:? None. ? FINDINGS:? ? Surgical changes and devices:? None.? ? Bones and chest wall:? No fractures or dislocations.? No suspicious bony lesions.? Overlying soft tissues appear unremarkable.? ? Lungs and pleura:? No pleural effusions or pneumothorax.? Lungs appear clear.? ? Mediastinum:? Mediastinal contours appear normal.? Heart size is normal.? ? IMPRESSION:? No displaced rib fracture.? No acute cardiopulmonary disease process. ? ? Dictated by: Trina Cameron MD, PhD on 08/12/2021 at 10:49 ? ? Approved by: Trina Cameron MD, PhD on 08/12/2021 at 10:50 ? Extremity x-ray #1: Radiologist's Impression: Chart Viewer Diagnostics Subcategory All Activity ??:?? All Time ??:?? All Subcategories Filter Laboratory Imaging Microbiology Pathology Blood Bank Tests Cardiovascular Other Specialty DATE TYPE STATUS REF RANGE/AUTHOR Hx Today 10:00 Knee X-Ray Signed Trina Cameron Today 09:57 Ribs X-Ray Signed Trina Cameron 01/13/21 15:49 Mammogram Screening Signed Malik Noyola 11/21/20 11:17 Abdomen/Pelvis CT Signed Chao Turcios 11/05/20 14:06 Chest X-Ray Signed Dale Mike 12/20/19 00:00 Echocardiogram Ultrasound Signed Lela Kramer 10/20/19 10:11 Chest X-Ray Signed DaydaySari 09/28/19 13:37 Outside DI US Renal Arterial Doppler 09/28/19 11:26 DI Result US Renal Arterial Doppler 09/07/19 15:04 Chest X-Ray Signed Yair Pope 02/21/19 12:52 Finger X-Ray Signed Joshua Sharp 02/06/19 12:17 Mammogram Screening Signed Dylan Valentin 10/10/18 13:15 Bone Densitometry ? 10/10/18 12:29 DEXA Result ? 02/21/18 18:17 Wrist X-Ray Signed Dale Mike 02/21/18 18:17 Hand X-Ray Signed Dale Mike Maggi Mata ED 76, F?1945 MRN#? [id number] REG ER,?Main ED??R08?? 162.56cm 79.832kg BMI: 30.2kg/m? Fall Acc#? [id number] Resus Status Not Ordered No Hx Avail Special Indicators No Data to Display Home Meds Not Confirmed Prescription Monitoring Program MEDICATIONS (INSTRUCTIONS) LAST TAKEN Active ??atenolol 50 mg tablet ??50 mgPOBID#180 tab ??fluoxetine 40 mg capsule ??40 mgPODAILY#90 cap ??fluticasone propionate [Flonase Allergy Relief] ??1 sprayINTRANASALDAILY ??losartan 50 mg tablet ??50 mgPOBID#90 tab ??rosuvastatin 20 mg tablet ??20 mgPODAILY#90 tab ??spironolactone 25 mg tablet ??See Rx Instructions.ROUTE.COMPLEX#180 tab DME/Medical Supplies ??blood pressure kit ?Not Included in Conflicts Allergies azithromycin (AZITHROMYCIN) THROAT SWELLING & SOB sulfamethoxazole (From BACTRIM) INSOMNIA trimethoprim (From BACTRIM) INSOMNIA Problems External Data Available ? ONSET Abdominal pain Dyspnea on exertion Depression Hyperaldosteronism, unspecified Acromioclavicular pain Renal artery stenosis ~10/08/19 Fatigue 06/2019 Hypertension Clostridium difficile diarrhea 09/17/14 Dysphagia 05/07/16 Vital Signs Today 09:55 BP 122/58?L Pulse 74? Resp 16? Temp 97.0 F?L O2 Sat 97? Delivery Room Air? Diagnostics Reports Maggi Mata??76??F??1945 ? Allergy/Adv: azithromycin, sulfamethoxazole, trimethoprim (More??) Close Knee X-Ray (Signed) RakeshTrina - 08/12/21 Ribs X-Ray (Signed) RakeshTrina - 08/12/21 Mammogram Screening (Signed) Malik Noyola - 01/13/21 Abdomen/Pelvis CT (Signed) Chao Turcios - 11/21/20 Chest X-Ray (Signed) Dale Mike - 11/05/20 Echocardiogram Ultrasound (Signed) Lela Kramer - 12/20/19 Chest X-Ray (Signed) Sari Naylor - 10/20/19 Outside DI 09/28/19 DI Result 09/28/19 Chest X-Ray (Signed) Yair Pope - 09/07/19 Finger X-Ray (Signed) Joshua Sharp - 02/21/19 Mammogram Screening (Signed) Dylan Valentin - 02/06/19 Bone Densitometry 10/10/18 DEXA Result 10/10/18 Wrist X-Ray (Signed) Dale Mike - 02/21/18 Hand X-Ray (Signed) Dale Mike - 02/21/18 [place] [address] XRay Report Signed Patient: Maggi Mata MR#: [id number] : 1945 Acct:[id number] Age/Sex: 76 / F Date of Service: 08/12/21 Loc: ED Accession Number: [id number] ?? Procedure: XR knee RT 3V Ordering Provider: Rashi Moreland D.O. PROCEDURE:? XR KNEE RT 3V ? INDICATIONS:? fall/knee pain ? TECHNIQUE:? 3 views of the knee were acquired.? ? COMPARISON:? None. ? FINDINGS:? ? Bones:? Fragmentation of the tibial tubercle compatible with chronic sequela of [place]-Schlatter's disease.? No acute fractures or dislocations.? No suspicious bony lesions.? Mild tricompartmental osteoarthritis. ? Soft tissues:? No joint effusion.? No suspicious soft tissue calcifications.? ? ? IMPRESSION:? No fracture. No acute osseous lesion. If symptoms and/or clinical suspicion for pathology persists, further assessment with repeat radiographs (7-10 days) or advanced imaging (e.g. CT, MRI or bone scan) should be considered. ? ? Dictated by: Trina Cameron MD, PhD on 08/12/2021 at 10:47 ? ? Discharge Plan Departure Patient Disposition: Home Clinical Impression: Contusion of rib, Knee sprain Prescriptions: No Action rosuvastatin 20 mg tablet 20 mg PO DAILY Qty: 90 1RF atenolol 50 mg tablet 50 mg PO BID Qty: 180 3RF Rx Instructions: TAKE 1 TABLET BY MOUTH TWICE DAILY fluoxetine 40 mg capsule 40 mg PO DAILY Qty: 90 1RF spironolactone 25 mg tablet See Rx Instructions .ROUTE .COMPLEX Qty: 180 0RF Dose Instruction: TAKE 1 TABLET BY MOUTH TWICE DAILY FOR HIGH BLOOD PRESSURE. Rx Instructions: TAKE 1 TABLET BY MOUTH TWICE DAILY FOR HIGH BLOOD PRESSURE. losartan 50 mg tablet 50 mg PO BID Qty: 90 3RF Rx Instructions: TAKE 1 TABLET(50 MG) BY MOUTH TWICE DAILY (DME) blood pressure kit Qty: 1 0RF Rx Instructions: check BP twice daily fluticasone propionate [Flonase Allergy Relief] 9.9 ML spray,suspension 1 spray Intranasal DAILY 0RF Referrals: Philip June MD [Primary Care Provider] -
[2021-08-12 12:30] VITALS: BP 167/75; PULSE 78; RESP 17; O2SAT 98
== END 2021-08-12 12:30 | disposition home or self-care (01) ==
PROVIDERS: Emergency Provider Emergency Medicine; PCP Family Medicine
DX: S20.212A Contusion of left front wall of thorax, initial encounter (principal); S83.91XA Sprain of unspecified site of right knee, initial encounter; W01.190A Fall on same level from slipping, tripping and stumbling with subsequent striking against furniture, initial encounter
CPT/HCPCS: 71101; 73562; 99282; 99283

== ENCOUNTER → 2021-12-14 12:06 | Outpatient (CLI) | payer MEDICARE, SELFPAY ==
[2021-12-14 13:48] LABS: COVID19 -Nasal RAPID Negative (Negative)
== END ==
PROVIDERS: PCP Family Medicine; Visit Provider Nurse Practitioner Family
DX: Z20.822 Contact with and (suspected) exposure to COVID-19 (principal)
CPT/HCPCS: 87635

== ENCOUNTER → 2021-12-14 12:15 | Outpatient (CLI) | payer MEDICARE, SELFPAY ==
[2021-12-14 13:55] LABS: Add Manual Diff / Slide Review NO; Basophils Absolute Auto 0 /uL (0-100); Basophils Percent Auto 0.6 % (0-2); Eosinophils Absolute Auto 100 /uL (0-450); Hematocrit 38.7 % (36-46); Hemoglobin 13.3 g/dL (12.0-16.0); Lymphocytes Absolute Auto 1300 /uL (1100-4500); Lymphocytes Percent Auto 22.1 % (25-40); Mean Corpuscular HGB Conc 34.3 % (30-36); Mean Corpuscular Hemoglobin 30.9 PG (26-34); Mean Corpuscular Volume 90.1 fL (80-100); Monocytes Absolute Auto 400 /uL (0-900); Monocytes Percent Auto 6.6 % (3-14); Neutrophils Absolute Auto 4100 /uL (1500-7000); Neutrophils Percent Auto 68.7 % (50-75); Platelet Count 285 X10^3/uL (150-400); Red Blood Cell Count 4.29 X10^6/uL (4.0-5.2); Red Cell Distribution Width 13.6 % (11.6-14.8)
[2021-12-14 14:20] LABS: Alanine Aminotransferase 29 IU/L (<35); Albumin 4.4 g/dL (3.5-5.0); Albumin Globulin Ratio 1.5 (1.0-2.8); Alkaline Phosphatase 63 U/L (38-126); Aspartate Aminotransferase 35 IU/L (14-36); BUN Creatinine Ratio 35.6 (6-22); Bilirubin Total 0.4 mg/dL (0.2-1.3); Blood Urea Nitrogen 26 mg/dL (7-17); Calcium 9.3 mg/dL (8.4-10.2); Carbon Dioxide 25 mmol/L (22-32); Chloride 102 mmol/L (98-107); Estimated Glomerular Filt Rate > 60 mL/min (>60); Globulin 2.9 g/dL (1.7-4.1); Glucose 93 mg/dL (80-110); HEMOLYSIS < 15 (0-50); Potassium 4.4 mmol/L (3.4-5.1); Sodium 135 mmol/L (137-145); Total Protein 7.3 g/dL (6.3-8.2)
== END ==
PROVIDERS: PCP Family Medicine; Referring Provider Nurse Practitioner Family; Visit Provider Nurse Practitioner Family
DX: R53.83 Other fatigue (principal); Z20.822 Contact with and (suspected) exposure to COVID-19
CPT/HCPCS: 36415; 80053; 85025; 87635

== ENCOUNTER → 2021-12-23 12:38 | Outpatient (CLI) | payer MEDICARE, SELFPAY ==
[2021-12-23 14:30] LABS: Add Manual Diff / Slide Review NO; Basophils Absolute Auto 100 /uL (0-100); Basophils Percent Auto 0.8 % (0-2); Eosinophils Absolute Auto 100 /uL (0-450); Hematocrit 38.2 % (36-46); Hemoglobin 13.1 g/dL (12.0-16.0); Lymphocytes Absolute Auto 1300 /uL (1100-4500); Lymphocytes Percent Auto 20.8 % (25-40); Mean Corpuscular HGB Conc 34.3 % (30-36); Mean Corpuscular Hemoglobin 30.9 PG (26-34); Mean Corpuscular Volume 90.2 fL (80-100); Monocytes Absolute Auto 400 /uL (0-900); Monocytes Percent Auto 6.4 % (3-14); Neutrophils Absolute Auto 4400 /uL (1500-7000); Platelet Count 260 X10^3/uL (150-400); Red Blood Cell Count 4.24 X10^6/uL (4.0-5.2); Red Cell Distribution Width 13.7 % (11.6-14.8); White Blood Cell Count 6.3 X10^3/uL (4.5-11.0)
[2021-12-23 15:05] LABS: Appearance Urine UA CLEAR; Bilirubin Urine UA NEGATIVE (NEGATIVE); Color Urine UA YELLOW; Glucose Urine UA NEGATIVE (Negative); Ketones Urine UA NEGATIVE (NEGATIVE); Leukocyte Esterase Urine UA NEGATIVE (NEGATIVE); Nitrite Urine UA NEGATIVE (Negative); Occult Blood Urine UA NEGATIVE (Negative); Protein Urine UA NEGATIVE (Negative); Urobilinogen Urine UA 0.2 E.U./dL (0.2)
[2021-12-23 15:32] LABS: Bacteria Urine None Seen; Culture Indicated Urine Cult Not Indicated; RBC Urine 0-1/HPF (0-5/HPF); Squamous Epithelial Cell Urine 0-1 /HPF (0-5/HPF); WBC Urine 0-1/HPF (0-5/HPF)
[2021-12-23 15:33] LABS: Prothrombin Time 11.4 SECONDS (10.1-12.7)
[2021-12-23 15:36] LABS: Creatinine Urine Random 60.9 mg/dL; PTT Partial Thromboplastin Tim 35 SECONDS (26.4-36.2)
[2021-12-23 15:44] LABS: Microalbumin Urine Random < 0.6 mg/dL (0-1.6)
[2021-12-23 16:17] LABS: Alanine Aminotransferase 33 IU/L (<35); Albumin 4.3 g/dL (3.5-5.0); Albumin Globulin Ratio 1.7 (1.0-2.8); Alkaline Phosphatase 63 U/L (38-126); Aspartate Aminotransferase 37 IU/L (14-36); BUN Creatinine Ratio 35.2 (6-22); Bilirubin Total 0.6 mg/dL (0.2-1.3); Blood Urea Nitrogen 25 mg/dL (7-17); Calcium 9.1 mg/dL (8.4-10.2); Carbon Dioxide 22 mmol/L (22-32); Chloride 99 mmol/L (98-107); Cholesterol 130 mg/dL (140-199); Estimated Glomerular Filt Rate > 60 mL/min (>60); Globulin 2.6 g/dL (1.7-4.1); Glucose 85 mg/dL (80-110); HDL Cholesterol 47 mg/dL (40-60); HEMOLYSIS < 15 (0-50); LDL Cholesterol Calculated 69 mg/dL (<100); Sodium 131 mmol/L (137-145); Total Protein 6.9 g/dL (6.3-8.2); Triglycerides 68 mg/dL (35-150)
[2021-12-23 16:19] LABS: Potassium 5.6 mmol/L (3.4-5.1)
[2021-12-23 16:46] LABS: TSH w/ Reflex to FT4 2.62 uIU/mL (0.47-4.68)
== END ==
PROVIDERS: PCP Family Medicine; Referring Provider Registered Nurse Diabetes Educator; Visit Provider Registered Nurse Diabetes Educator
DX: I10 Essential (primary) hypertension (principal); R10.30 Lower abdominal pain, unspecified; E26.9 Hyperaldosteronism, unspecified; F32.9 Major depressive disorder, single episode, unspecified; Z01.818 Encounter for other preprocedural examination; R74.8 Abnormal levels of other serum enzymes; R53.83 Other fatigue
CPT/HCPCS: 36415; 80053; 80061; 81001; 82043; 82306; 82570; 84443; 85025; 85610; 85730

== ENCOUNTER → 2021-12-31 09:50 | Outpatient (CLI) | payer MEDICARE, SELFPAY ==
[2021-12-31 11:19] LABS: Add Manual Diff / Slide Review NO; Basophils Absolute Auto 0 /uL (0-100); Basophils Percent Auto 0.6 % (0-2); Eosinophils Absolute Auto 100 /uL (0-450); Eosinophils Percent Auto 2.3 % (2-4); Hematocrit 38.2 % (36-46); Hemoglobin 13.2 g/dL (12.0-16.0); Lymphocytes Absolute Auto 1200 /uL (1100-4500); Lymphocytes Percent Auto 24.7 % (25-40); Mean Corpuscular HGB Conc 34.5 % (30-36); Mean Corpuscular Hemoglobin 30.9 PG (26-34); Mean Corpuscular Volume 89.6 fL (80-100); Monocytes Absolute Auto 400 /uL (0-900); Monocytes Percent Auto 7.7 % (3-14); Neutrophils Absolute Auto 3100 /uL (1500-7000); Neutrophils Percent Auto 64.7 % (50-75); Platelet Count 262 X10^3/uL (150-400); Red Blood Cell Count 4.26 X10^6/uL (4.0-5.2); Red Cell Distribution Width 13.5 % (11.6-14.8); White Blood Cell Count 4.9 X10^3/uL (4.5-11.0)
[2021-12-31 11:20] LABS: Alanine Aminotransferase 30 IU/L (<35); Albumin 4.2 g/dL (3.5-5.0); Albumin Globulin Ratio 1.6 (1.0-2.8); Alkaline Phosphatase 55 U/L (38-126); Aspartate Aminotransferase 37 IU/L (14-36); BUN Creatinine Ratio 29.2 (6-22); Bilirubin Total 0.5 mg/dL (0.2-1.3); Blood Urea Nitrogen 21 mg/dL (7-17); Calcium 8.7 mg/dL (8.4-10.2); Carbon Dioxide 26 mmol/L (22-32); Chloride 100 mmol/L (98-107); Estimated Glomerular Filt Rate > 60 mL/min (>60); Globulin 2.7 g/dL (1.7-4.1); Glucose 84 mg/dL (80-110); HEMOLYSIS < 15 (0-50); Potassium 4.1 mmol/L (3.4-5.1); Sodium 133 mmol/L (137-145); Total Protein 6.9 g/dL (6.3-8.2)
== END ==
PROVIDERS: PCP Family Medicine; Referring Provider Family Medicine; Visit Provider Family Medicine
DX: E26.9 Hyperaldosteronism, unspecified (principal); F32.9 Major depressive disorder, single episode, unspecified; I10 Essential (primary) hypertension
CPT/HCPCS: 36415; 80053; 85025

== ENCOUNTER → 2022-01-12 13:36 | Outpatient (CLI) | payer MEDICARE, SELFPAY ==
[2022-01-12 20:16] LABS: COVID19 -Nasal RAPID Negative (Negative)
--- NOTE | 2022-01-13 09:26 | P.PCN_ITS ---
Cardiac Stress Test Report Referral & Results Date Patient Seen: 01/13/22 Time Patient Seen: 09:00 Requesting provider: Philip June Indication: Dyspnea Rest ECG: Normal sinus rhythm Procedure Note: Today, following both written and verbal informed consent, the patient was exercised according to a standard Bj protocol. The patient went for a total of 5 minutes 31 seconds achieving a maximum heart rate of 142 maximum systolic blood pressure of 202. This is approximately 7.0 METs. Exercise was terminated at this point because of fatigue. Patient was also given Cardiolite through a previously started Hep-Lock IV by the staff nuclear weapons officer approximately 1 minute prior to the cessation of exercise. Normal hemodynamic response to exercise. [address] deviations in inferior/lateral leads that resolved rapidly with rest. No other EKG changes during exercise. However, had frequent PVCs and 2-beat runs of NSVT at rest right after exercise. No signs or symptoms of angina at any time. Normal exercise capacity (FA I 0% on active scale). Impression: Significant exercise-induced PVCs. Perfusion imaging pending. Please note: Actual ECG tracings can be found in the PACS system.
--- NOTE | 2022-01-13 21:03 | DI.NM.S_ITS ---
DATE OF SERVICE: 01/12/2022 PROCEDURE PERFORMED: Exercise treadmill stress and rest myocardial perfusion imaging with gating to assess ejection fraction and regional wall motion. ORDERING PROVIDER: Dr. Philip June. INDICATION: The patient is a 76-year-old female with exertional dyspnea and fatigue, who requires presurgical clearance. CARDIAC STRESS: The patient was able to exercise for 5 minutes, 31 seconds on a standard Bj protocol, suggesting average exercise capacity with an TORI of 0%. She had a normal heart rate response to exercise, achieving a maximum heart rate of 142 BPM (97% of her predicted maximum). She had a mild hypertensive blood pressure response to exercise with a resting blood pressure of 138/86, increasing to a maximum of 202/100. She had no chest discomfort and stopped because of dyspnea. Her resting ECG shows sinus rhythm with occasional PVCs and relatively normal ST-segments. With cardiac stress, there are no significant ST-segment shifts and her PVCs resolve, but return in recovery with a bigeminal pattern with occasional couplets and triplets, but no other complex ventricular ectopy. At 4 minutes, 30 seconds of exercise at a heart rate of 130 BPM, 26.5 mCi of technetium-99m Myoview was injected and she was imaged 10 minutes later using a gated SPECT acquisition protocol. The day prior while at rest, she had been injected with 24.5 mCi of technetium-99m Myoview and was imaged 20 minutes later, again using quantitated gated SPECT protocol. FINDINGS: 1. Raw data: There is fairly good myocardial tracer uptake, but significant breast shadows are noted which produce some attenuation. Lung/heart ratio is borderline elevated at 0.41, which can be a sign of pulmonary congestion. TID ratio is normal at 0.74. 2. Quantitated gated SPECT: Post-stress ejection fraction is estimated at 70% without any focal wall motion abnormality. Resting ejection fraction is 69% with a normal resting end-diastolic volume of 111 mL. There appears to be slightly increased tracer uptake of the right ventricular free wall which can be an indication of a right ventricular overload condition, but clinical correlation is recommended. 3. Myocardial perfusion imaging: Post-stress supine images show a normal myocardial perfusion pattern, supported by normal perfusion imaging in the prone position. The resting images show a similar perfusion pattern without any areas of improvement. IMPRESSION: 1. Normal myocardial perfusion study for ischemia. 2. No evidence for myocardial ischemia or previous myocardial infarction. 3. Normal left ventricular systolic function without focal wall motion abnormality. The lung/heart ratio is borderline elevated which can be an indication of pulmonary congestion but is nonspecific, and there is mildly increased right ventricular tracer uptake, which can be a sign of a right ventricular overload condition. Clinical correlation is recommended. 4. Average exercise capacity without angina or ECG evidence of ischemia. She had occasional PVCs, more frequent in recovery with occasional couplets and triplets, but no other complex ventricular ectopy. Maggi Mata - MATILDE/payton/saray doc#: [id number]/job#: [id number] dd: 01/13/2022 16:48:00 dt: 01/13/2022 20:32:00 DICTATING /COPIES TO: Toni Bolden MD; Philip June, KRISTOFER MNE: ALICIA;
== END ==
PROVIDERS: PCP Family Medicine; Referring Provider Family Medicine; Visit Provider Family Medicine
DX: R06.00 Dyspnea, unspecified (principal); R53.83 Other fatigue; I10 Essential (primary) hypertension; R10.9 Unspecified abdominal pain; Z20.822 Contact with and (suspected) exposure to COVID-19
CPT/HCPCS: 78452; 87635; 93016; 93017; 93018; A9502

== ENCOUNTER → 2022-01-18 13:26 | Outpatient (CLI) | payer MEDICARE, SELFPAY ==
--- NOTE | 2022-01-18 13:27 | DI.CT.S_ITS ---
PROCEDURE: CT ABDOMEN PELVIS W CON INDICATIONS: abdominal pain TECHNIQUE: After the administration of oral and intravenous contrast, axial sections were acquired from the lung bases to the pubic symphysis. Coronal and sagittal reformats were performed. For radiation dose reduction, the following was used: automated exposure control, adjustment of mA and/or kV according to patient size. COMPARISON:[facility], CT, ABDOMEN/PELVIS WITH CONTRAST, 10/31/2014, 13:39. [facility], CT, CT ABDOMEN PELVIS W CON, 11/21/2020, 12:18. FINDINGS: Image quality: Excellent. Lung bases: Unremarkable. Heart: No significant findings. ABDOMEN: Liver: Unremarkable. Gallbladder: Probable stones or sludge are layered in the gallbladder fundus. No gallbladder wall thickening or pericholecystic fluid. Biliary ducts: Unremarkable. Pancreas: Unremarkable. Spleen: Unremarkable. Adrenal Glands: Unremarkable. Kidneys and Ureters: Unremarkable. Stomach and Bowel: Stomach, small bowel loops, and colon are unremarkable. The appendix is thin walled and gas filled. There are extensive sigmoid diverticula. No evidence for diverticulitis. Peritoneum: No abnormal intraperitoneal fluid. No free air. Ventral Wall: No hernia. Abdominal Nodes: No retroperitoneal or mesenteric adenopathy by size criteria. Vessels: Aorta and inferior vena cava are normal in size. There are scattered atheromatous calcifications throughout the aorta and iliac arteries bilaterally. PELVIS: Pelvic Organs: Unremarkable. Bladder: Unremarkable. Pelvic Nodes: No enlarged lymph nodes. Miscellaneous: No inguinal hernias are seen. Bones: Unremarkable. IMPRESSION: 1. No acute intra-abdominal findings. There is extensive sigmoid colon diverticulosis. No acute diverticulitis. Normal appendix. Dictated by: Kristina Seymour M.D. on 01/18/2022 at 16:11 Approved by: Kristina Seymour M.D. on 01/18/2022 at 16:18
== END ==
PROVIDERS: PCP Family Medicine; Referring Provider Family Medicine; Visit Provider Family Medicine
DX: R10.30 Lower abdominal pain, unspecified (principal); K57.30 Diverticulosis of large intestine without perforation or abscess without bleeding; I10 Essential (primary) hypertension; R06.00 Dyspnea, unspecified; R53.83 Other fatigue
CPT/HCPCS: 74177; Q9967

== ENCOUNTER → 2022-02-11 07:56 | Outpatient (CLI) | payer MEDICARE, SELFPAY ==
--- NOTE | 2022-02-11 07:57 | DI.ECHO.S_ITS ---
[facility] +---------+ : : [address] : : : : [id number] : : : : Phone: [phone]+ Echocardiogram Report + + :Name: NOE ALICIA Study Date: 02/11/2022 Height: 64 in : :[facility] ReadingLocation: Weight: 178 lb : : Gender: Female BSA: 1.9 m2 : :: 1945 Age: 77 yrs BP: 122/69 mmHg: :Reason For Study: EXERTIONAL DYSPNEA AND FATIGUE : :Ordering Physician: SAUL, : :CHUYITA Performed By: Brittnee Lopez : :Referring: CHUYITA HUGHES : + + Interpretation Summary The ejection fraction is estimated to be 55-60%. The left atrium is moderately dilated. Grade I diastolic dysfunction The right ventricle is normal in size and function. The IVC is of normal diameter and collapses greater than 50% with a sniff. This suggests a low right atrial pressure of 3 mm Hg. No signigicant valvular disease. Overall, no significant change from prior study in 2019 except for enlarged left atrium and grade I disastolic dysfuction. Procedure: A two-dimensional transthoracic echocardiogram with color flow and Doppler was performed. The study quality was technically adequate. Comparison is made with the echocardiogram of 12/20/2019. The patient was in sinus rhythm with heart rates between 55-75 bpm during the exam. The patient had occasional PVCs during the exam. Left Ventricle: The left ventricle is normal in size and wall thickness. The ejection fraction is estimated to be 55-60%. Grade I diastolic dysfunction. Right Ventricle: The right ventricle is normal in size and function. Atria: The left atrium is moderately dilated. Right atrial size is normal. There is no Doppler evidence for an interatrial shunt. Mitral Valve: The mitral valve is normal in structure and function. There is trace mitral regurgitation. Aortic Valve: The aortic valve is grossly normal. The aortic valve opens well. There is no aortic valve stenosis. No aortic regurgitation is present. Tricuspid Valve: The tricuspid valve is normal in structure and function. There is trace tricuspid regurgitation. Pulmonic Valve: The pulmonic valve leaflets are thin and pliable; valve motion is normal. There is no pulmonic valvular regurgitation. Great Vessels: The aortic root is normal size. The IVC is of normal diameter and collapses greater than 50% with a sniff. This suggests a low right atrial pressure of 3 mm Hg. Pericardium/ Pleura There is no pericardial effusion. There is no pleural effusion. MMode/2D Measurements & Calculations LVIDd: 4.6 cm LVOT diam: 2.0 cm LVIDs: 2.9 cm Ao root diam: 3.3 cm FS: 35.8 % Ao Arch Diam (Prox Trans): 2.7 cm EPSS: 0.76 cm IVSd: 0.89 cm LVPWd: 0.94 cm LV madden. diameter/BSA (cm/m^2): 2.4 LV sys. diameter/BSA (cm/m^2): 1.6 LA A2 area: 29.0 cm2 RA long axis: 5.4 cm LA A4 area: 22.2 cm2 RA area: 16.1 cm2 LA length (vol): 6.2 cm RA vol: 41.1 ml LA vol: 88.0 ml RA : 22.1 ml/m2 LA vol index: 47.3 ml/m2 IVC diam: 1.1 cm RVD1 (basal): 3.8 cm RVD2 (mid): 3.2 cm TAPSE: 1.9 cm Doppler Measurements & Calculations Ao V2 max: 142.2 cm/sec LVOT Max Pete: 94.3 cm/sec Ao V2 mean: 101.3 cm/sec LV V1 max P.6 mmHg Ao max P.1 mmHg LV V1 VTI: 22.6 cm Ao mean P.6 mmHg DARIO(I,D): 2.1 cm2 Ao V2 VTI: 32.0 cm DARIO(V,D): 2.0 cm2 sev ratio: 0.71 DARIO indexed to BSA (cm^2/m^2): 1.1 MV E max pete: 60.2 cm/sec PA V2 max: 68.9 cm/sec MV A max pete: 71.4 cm/sec PA V2 mean: 48.8 cm/sec MV E/A: 0.84 PA mean P.1 mmHg Med Peak E' Pete: 6.8 cm/sec PA pr(Accel): 25.9 mmHg E/E' med: 8.9 Lat Peak E' Pete: 11.0 cm/sec E/E' lat: 5.5 E/e' average: 7.2 MV dec time: 0.30 sec [facility] 68.4 ml Reading Physician:MARVIN
== END ==
PROVIDERS: PCP Family Medicine; Referring Provider Family Medicine; Visit Provider Family Medicine
DX: R06.00 Dyspnea, unspecified (principal); I10 Essential (primary) hypertension; R53.83 Other fatigue; R10.9 Unspecified abdominal pain
CPT/HCPCS: 93306

== ENCOUNTER → 2022-03-01 07:14 | Outpatient (CLI) | payer MEDICARE, SELFPAY ==
--- NOTE | 2022-03-24 08:57 | PM.CARDMON.1 ---
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 Referral & Results Date Patient Seen: 03/01/22 Requesting provider: Philip June Indication: Palpitations Duration of monitoring (days): 13 Diary information: There were no patient events to review Data: Minimum heart rate identified was 42 beats per minute at 05:04 on 03/02/2022 Maximum sinus heart rate was 106 beats per minute at 12:08 on 03/09/2022 Maximum overall heart rate was 132 beats per minute at 19:55 on 03/08/2022 during a run of SVT Less than 1% of identified beats were supraventricular ectopic in origin which would classify them as rare Approximately 7.4% of identified beats were ventricular ectopic in origin which would classify them as occasional, in addition approximately 1.2% of identified beats were ventricular couplets which would be considered occasional. This included an 8 minute 34 second run of ventricular trigeminy as well as a 20.5 second run of ventricular bigeminy There were also episodes of idioventricular rhythm present There were 3 runs of SVT with the fastest being a 10 second run 132 beats per minute. This was also the longest run There were 3 episodes of ventricular tachycardia the longest being 4 beats in duration There were no pauses of 3 seconds or longer or episodes of atrial fibrillation identified on this study Impression: 13 day shelter monitor demonstrating frequent ventricular ectopy as above including couplets and runs of ventricular bigeminy and trigeminy. There is also episodes of idioventricular rhythm present Clinical correlation suggested
== END ==
PROVIDERS: PCP Family Medicine; Referring Provider Family Medicine; Visit Provider Family Medicine
DX: R00.2 Palpitations (principal); R42 Dizziness and giddiness
CPT/HCPCS: 93246; 93248

== ENCOUNTER → 2022-05-17 15:41 | Outpatient (CLI) | payer MEDICARE, SELFPAY ==
--- NOTE | 2022-05-17 15:43 | DI.MG.S_ITS ---
BILATERAL DIGITAL SCREENING MAMMOGRAM 3D/2D WITH CAD: 05/17/2022 CLINICAL: Routine screening. Comparison is made to exams dated: 01/13/2021 mammogram, 02/06/2019 mammogram, and 12/18/2015 mammogram - [facility]. There are scattered areas of fibroglandular density in both breasts (category b / 25%-50% glandular tissue). Current study was also evaluated with a Computer Aided Detection (CAD) system. No significant masses, calcifications, or other findings are seen in either breast. There has been no significant interval change. IMPRESSION: NEGATIVE There is no mammographic evidence of malignancy. A 1 year screening mammogram is recommended. Based on the Tyrer Cuzick model (a risk assessment model) the patient's lifetime risk is 1.6% and her 10 year risk is 1.6%. According to the ACR, ACS, and NCCN guidelines, an annual breast MRI exam along with mammogram is recommended if the patient's lifetime risk is 20% or greater. This exam was interpreted at Station ID: [id number]. NOTE: For mammograms, a report in lay terms will be sent to the patient. Approximately 15% of breast malignancies will not be visualized mammographically. In the management of a palpable breast mass, a negative mammogram must not discourage biopsy of a clinically suspicious lesion. Electronically Signed By: Dylan castillo/pallavi:05/18/2022 07:55:20 letter sent: Normal Exam ACR BI-RADS Category 1: Negative [id number]
== END ==
PROVIDERS: PCP Family Medicine; Referring Provider Family Medicine; Visit Provider Family Medicine
DX: Z12.31 Encounter for screening mammogram for malignant neoplasm of breast (principal)
CPT/HCPCS: 77063; 77067

== ENCOUNTER → 2022-05-17 16:06 | Outpatient (CLI) | payer MEDICARE, SELFPAY ==
[2022-05-17 16:43] LABS: Add Manual Diff / Slide Review NO; Basophils Absolute Auto 0 /uL (0-100); Basophils Percent Auto 0.7 % (0-2); Eosinophils Absolute Auto 100 /uL (0-450); Eosinophils Percent Auto 1.1 % (2-4); Hematocrit 37.8 % (36-46); Lymphocytes Absolute Auto 1300 /uL (1100-4500); Lymphocytes Percent Auto 18.3 % (25-40); Mean Corpuscular HGB Conc 34.3 % (30-36); Mean Corpuscular Hemoglobin 30.3 PG (26-34); Mean Corpuscular Volume 88.2 fL (80-100); Monocytes Absolute Auto 600 /uL (0-900); Neutrophils Absolute Auto 5000 /uL (1500-7000); Neutrophils Percent Auto 71.9 % (50-75); Platelet Count 305 X10^3/uL (150-400); Red Blood Cell Count 4.28 X10^6/uL (4.0-5.2); Red Cell Distribution Width 14.1 % (11.6-14.8); White Blood Cell Count 6.9 X10^3/uL (4.5-11.0)
== END ==
PROVIDERS: PCP Family Medicine; Referring Provider Family Medicine; Visit Provider Family Medicine
DX: I49.3 Ventricular premature depolarization (principal); I10 Essential (primary) hypertension; R06.00 Dyspnea, unspecified
CPT/HCPCS: 36415; 85025

== ENCOUNTER → 2022-05-26 14:03 | Outpatient (CLI) | payer MEDICARE, SELFPAY ==
[2022-05-26 15:24] LABS: Alanine Aminotransferase 29 IU/L (<35); Albumin Globulin Ratio 1.3 (1.0-2.8); Alkaline Phosphatase 72 U/L (38-126); Aspartate Aminotransferase 33 IU/L (14-36); BUN Creatinine Ratio 26.9 (6-22); Bilirubin Total 0.6 mg/dL (0.2-1.3); Blood Urea Nitrogen 21 mg/dL (7-17); Calcium 9.2 mg/dL (8.4-10.2); Carbon Dioxide 25 mmol/L (22-32); Chloride 98 mmol/L (98-107); Estimated Glomerular Filt Rate > 60 mL/min (>60); Globulin 3.1 g/dL (1.7-4.1); Glucose 111 mg/dL (80-110); HEMOLYSIS < 15 (0-50); Lipase 58 U/L (23-300); Potassium 4.4 mmol/L (3.4-5.1); Sodium 134 mmol/L (137-145); Total Protein 7.1 g/dL (6.3-8.2)
== END ==
PROVIDERS: PCP Family Medicine; Referring Provider Family Medicine; Visit Provider Family Medicine
DX: Z01.818 Encounter for other preprocedural examination (principal); R14.0 Abdominal distension (gaseous); E87.1 Hypo-osmolality and hyponatremia; I10 Essential (primary) hypertension; R53.83 Other fatigue
CPT/HCPCS: 36415; 80053; 83690; 87797

== ENCOUNTER → 2022-07-26 09:07 | Outpatient (CLI) | payer MEDICARE, SELFPAY ==
[2022-07-26 11:50] LABS: Influenza A - CEPHEID Flu A POSITIVE (NEGATIVE); Influenza B - CEPHEID Flu B NEGATIVE (NEGATIVE); Respiratory Syncytial Virus Negative (Negative)
[2022-07-26 11:53] LABS: COVID-19 CEPHEID 4-PLEX PCR POSITIVE (Negative)
== END ==
PROVIDERS: PCP Family Medicine; Visit Provider Registered Nurse
DX: U07.1 COVID-19 (principal); R05.1 Acute cough; J02.9 Acute pharyngitis, unspecified; Z20.822 Contact with and (suspected) exposure to COVID-19
CPT/HCPCS: 0241U; 87070

== ENCOUNTER → 2022-12-02 12:06 | Outpatient (CLI) | payer MEDICARE, SELFPAY ==
[2022-12-02 13:01] LABS: Influenza A - CEPHEID Flu A NEGATIVE (NEGATIVE); Influenza B - CEPHEID Flu B NEGATIVE (NEGATIVE); Respiratory Syncytial Virus Negative (Negative)
[2022-12-02 13:30] LABS: COVID-19 CEPHEID 4-PLEX PCR Negative (Negative)
== END ==
PROVIDERS: PCP Family Medicine; Visit Provider Student in an Organized Health Care Education/Training Program
DX: R05.1 Acute cough (principal)
CPT/HCPCS: 0241U

== ENCOUNTER → 2023-08-04 07:07 | Outpatient (CLI) | payer MEDICARE, SELFPAY ==
[2023-08-04 07:53] LABS: Add Manual Diff / Slide Review NO; Basophils Absolute Auto 0 /uL (0-100); Basophils Percent Auto 0.9 % (0-2); Eosinophils Absolute Auto 100 /uL (0-450); Eosinophils Percent Auto 2.7 % (2-4); Hematocrit 40.8 % (36-46); Hemoglobin 13.9 g/dL (12.0-16.0); Lymphocytes Absolute Auto 1500 /uL (1100-4500); Mean Corpuscular HGB Conc 33.9 % (30-36); Mean Corpuscular Hemoglobin 31.2 PG (26-34); Monocytes Absolute Auto 400 /uL (0-900); Monocytes Percent Auto 7.2 % (3-14); Neutrophils Absolute Auto 3200 /uL (1500-7000); Neutrophils Percent Auto 61.2 % (50-75); Platelet Count 278 X10^3/uL (150-400); Red Blood Cell Count 4.44 X10^6/uL (4.0-5.2); Red Cell Distribution Width 14.1 % (11.6-14.8); White Blood Cell Count 5.3 X10^3/uL (4.5-11.0)
[2023-08-04 08:02] LABS: Alanine Aminotransferase 30 IU/L (<35); Albumin 4.4 g/dL (3.5-5.0); Albumin Globulin Ratio 1.4 (1.0-2.8); Alkaline Phosphatase 53 U/L (38-126); Aspartate Aminotransferase 37 IU/L (14-36); BUN Creatinine Ratio 30.6 (6-22); Bilirubin Total 0.6 mg/dL (0.2-1.3); Blood Urea Nitrogen 22 mg/dL (7-17); Calcium 10.1 mg/dL (8.4-10.2); Carbon Dioxide 28 mmol/L (22-32); Chloride 102 mmol/L (98-107); Cholesterol 144 mg/dL (140-199); Estimated Glomerular Filt Rate > 60 mL/min (>60); Globulin 3.1 g/dL (1.7-4.1); Glucose 100 mg/dL (80-110); HDL Cholesterol 45 mg/dL (40-60); HEMOLYSIS < 15 (0-50); LDL Cholesterol Calculated 83 mg/dL (<100); Sodium 136 mmol/L (137-145); Total Protein 7.5 g/dL (6.3-8.2); Triglycerides 82 mg/dL (35-150)
[2023-08-04 08:05] LABS: Potassium 5.9 mmol/L (3.4-5.1)
[2023-08-04 08:29] LABS: Vitamin D 25 Hydroxy (D3) 50.1 ng/mL (30.0-100.0)
[2023-08-04 09:06] LABS: TSH w/ Reflex to FT4 3.62 uIU/mL (0.47-4.68)
[2023-08-04 09:58] LABS: Creatinine Urine Random 51.8 mg/dL
[2023-08-04 10:05] LABS: Microalbumin Urine Random < 0.6 mg/dL (0-1.6)
== END ==
PROVIDERS: PCP Family Medicine; Referring Provider Family Medicine; Visit Provider Family Medicine
DX: Z00.00 Encounter for general adult medical examination without abnormal findings (principal); I10 Essential (primary) hypertension; E26.9 Hyperaldosteronism, unspecified
CPT/HCPCS: 36415; 80053; 80061; 82043; 82306; 82570; 84443; 85025

== ENCOUNTER → 2023-09-01 09:15 | Outpatient (CLI) | payer OTHER, SELFPAY ==
[2023-09-01 10:33] LABS: Alanine Aminotransferase 24 IU/L (<35); Albumin 3.7 g/dL (3.5-5.0); Albumin Globulin Ratio 1.4 (1.0-2.8); Alkaline Phosphatase 61 U/L (38-126); Aspartate Aminotransferase 32 IU/L (14-36); BUN Creatinine Ratio 39.1 (6-22); Bilirubin Total 0.6 mg/dL (0.2-1.3); Blood Urea Nitrogen 25 mg/dL (7-17); Calcium 9.4 mg/dL (8.4-10.2); Carbon Dioxide 26 mmol/L (22-32); Chloride 102 mmol/L (98-107); Estimated Glomerular Filt Rate > 60 mL/min (>60); Globulin 2.6 g/dL (1.7-4.1); Glucose 89 mg/dL (80-110); HEMOLYSIS < 15 (0-50); Potassium 4.5 mmol/L (3.4-5.1); Sodium 135 mmol/L (137-145); Total Protein 6.3 g/dL (6.3-8.2)
== END ==
PROVIDERS: PCP Family Medicine; Referring Provider Family Medicine; Visit Provider Family Medicine
DX: I10 Essential (primary) hypertension (principal); R06.00 Dyspnea, unspecified; R53.83 Other fatigue
CPT/HCPCS: 36415; 80053

== ENCOUNTER 2023-09-03 21:45 | Emergency (ER) | payer OTHER, SELFPAY ==
[2023-09-03] VITALS (15 sets, daily range): BP systolic 182–237; BP diastolic 86–108; PULSE 50–67; RESP 12–25; TEMP 36.6; O2SAT 94–98; BMI 30.9
--- NOTE | 2023-09-03 21:55 | DI.RAD.S_ITS ---
PROCEDURE: XR CHEST 1V INDICATIONS: chest pain TECHNIQUE: One view of the chest was acquired. COMPARISON: [facility], CR, XR CHEST 1V, 11/05/2020, 14:09. [facility], CR, XR CHEST 2V, 10/20/2019, 9:15. FINDINGS: Surgical changes and devices: None. Lungs and pleura: Lungs are clear. No pleural effusions or pneumothorax. Mediastinum: Mediastinal contours appear normal. Heart size is normal. Bones and chest wall: No suspicious bony lesions. Overlying soft tissues appear unremarkable. IMPRESSION: No acute cardiopulmonary abnormality is seen. Dictated by: Michael Hansen M.D. on 09/03/2023 at 22:10 Approved by: Michael Hansen M.D. on 09/03/2023 at 22:10
[2023-09-03] MEDS: ASPIRIN 81 MG CHEW TAB 324 MG PO (22:05)
[2023-09-03] MEDS: NITROGLYCERIN 0.4 MG SL TAB SL ×3 (22:12→22:26)
[2023-09-03 22:40] LABS: Add Manual Diff / Slide Review NO; Basophils Absolute Auto 0 /uL (0-100); Basophils Percent Auto 0.8 % (0-2); Eosinophils Absolute Auto 200 /uL (0-450); Eosinophils Percent Auto 2.7 % (2-4); Hematocrit 39.7 % (36-46); Hemoglobin 13.3 g/dL (12.0-16.0); Lymphocytes Absolute Auto 1500 /uL (1100-4500); Lymphocytes Percent Auto 25.9 % (25-40); Mean Corpuscular HGB Conc 33.6 % (30-36); Mean Corpuscular Hemoglobin 30.6 PG (26-34); Mean Corpuscular Volume 91.2 fL (80-100); Monocytes Absolute Auto 500 /uL (0-900); Neutrophils Absolute Auto 3600 /uL (1500-7000); Neutrophils Percent Auto 61.6 % (50-75); Platelet Count 240 X10^3/uL (150-400); Red Blood Cell Count 4.35 X10^6/uL (4.0-5.2); Red Cell Distribution Width 14.2 % (11.6-14.8); White Blood Cell Count 5.9 X10^3/uL (4.5-11.0)
[2023-09-03 22:42] LABS: INR 0.9 (0.9-1.3); Prothrombin Time 10.8 SECONDS (9.4-12.5)
[2023-09-03 22:45] LABS: PTT Partial Thromboplastin Tim 33 SECONDS (25.1-36.5)
[2023-09-03 22:48] LABS: Alanine Aminotransferase 26 IU/L (<35); Albumin 4.1 g/dL (3.5-5.0); Albumin Globulin Ratio 1.4 (1.0-2.8); Alkaline Phosphatase 58 U/L (38-126); Aspartate Aminotransferase 32 IU/L (14-36); BUN Creatinine Ratio 35.6 (6-22); Bilirubin Total 0.7 mg/dL (0.2-1.3); Blood Urea Nitrogen 21 mg/dL (7-17); Calcium 9.5 mg/dL (8.4-10.2); Carbon Dioxide 24 mmol/L (22-32); Chloride 100 mmol/L (98-107); Creatine Kinase 56 U/L (30-135); Estimated Glomerular Filt Rate > 60 mL/min (>60); Glucose 112 mg/dL (80-110); HEMOLYSIS < 15 (0-50); Lipase 58 U/L (23-300); Potassium 4.3 mmol/L (3.4-5.1); Sodium 134 mmol/L (137-145); Total Protein 7.1 g/dL (6.3-8.2)
[2023-09-03 22:59] LABS: Troponin I < 0.012 ng/mL (0.01-0.034)
--- NOTE | 2023-09-03 23:05 | ED_ITS ---
HPI - Chest Pain General Chief Complaint: Dizziness Stated Complaint: High blood pressure Time Seen by Provider: 09/03/23 22:53 Source: patient Mode of arrival: Ambulatory Limitations: no limitations History of Present Illness HPI narrative: Patient is a 78-year-old female history of hyperaldosteronism, renal artery stenosis, hypertension presenting today with elevated blood pressure. She reports that her blood pressure has been off for awhile. She actually went for yearly checkup the end of July in her blood pressure is 92/62. Her only complaint at that time was extreme fatigue. Patient was then taken off of spironolactone, losartan was halved from 50 mg twice a day to 50 mg daily and she continued to be on atenolol 25 mg daily. She reports that her blood pressure has now been elevated. She was instructed to take her blood pressure every 3 hours. Today her morning blood pressure was 148/90 3 hours after it started increasing into the 180s she took her night meds her blood pressure was so high that her blood pressure cuff would not read it. She was having some chest heaviness as well. She also complains of head burning. No obvious headache numbness tingling or weakness. She was having chest heaviness and had burning when she 1st arrived however after nitroglycerin all completely resolved. She initially did have pretty consistent elevation in blood pressure of 226/106 to 37/105. Related Data Home Medications Medication Instructions Recorded Confirmed fluticasone propionate 50 1 spray intranasal DAILY 09/07/19 08/04/23 mcg/actuation nasal spray,suspension (Flonase Allergy Relief) Previous Rx's Medication Instructions Recorded blood pressure kit #1 ea 08/14/19 rosuvastatin 20 mg tablet 20 mg PO BEDTIME #90 tabs 06/17/23 atenolol 25 mg tablet 25 mg PO DAILY #60 tabs 08/04/23 losartan 50 mg tablet 50 mg PO DAILY #90 tabs 08/04/23 fluoxetine 20 mg capsule 40 mg (2 x 20 mg) PO DAILY #120 08/12/23 caps spironolactone 25 mg tablet 25 mg PO DAILY #120 tabs 09/01/23 Allergies Allergy/AdvReac Type Severity Reaction Status Date / Time azithromycin [AZITHROMYCIN] Allergy Severe THROAT Verified 08/04/23 13:56 SWELLING & SOB sulfamethoxazole AdvReac Mild INSOMNIA Verified 08/04/23 13:56 [From BACTRIM] trimethoprim [From BACTRIM] AdvReac Mild INSOMNIA Verified 08/04/23 13:56 Patient History Medical History Abdominal pain Fatigue (06/2019) Hyperlipidemia Hypertension Renal artery stenosis (~10/08/19) Ventricular ectopic activity Surgical History Status post vaginal hysterectomy Social History Smoking Status: Never smoker Smoking Status: Never smoker alcohol intake frequency: holidays/special occasions only Substance Use Type: does not use Exam Initial Vital Signs Initial Vital Signs: Vital Signs Temperature 97.8 F 09/03/23 21:48 Pulse Rate 57 L 09/03/23 21:48 Respiratory Rate 16 09/03/23 21:48 Blood Pressure 226/106 H 09/03/23 21:48 Pulse Oximetry 98 09/03/23 21:48 Oxygen Delivery Method Room Air 09/03/23 21:48 GENERAL: Alert very well-appearing 78-year-old female and in no acute distress. HEENT: Head atraumatic,EOMI, pupils reactive, face symmetric, moist mucous membranes CARDIOVASCULAR: Regular rate and rhythm without murmurs, rubs or gallops. RESPIRATORY: Breath sounds equal bilaterally, no wheezes rales or rhonchi. ABDOMEN: Soft, nontender. Normoactive bowel sounds all 4 quadrants. No guarding or rebound. EXTREMITIES: Normal range of motion, no clubbing or edema. Neurovascularly intact NEUROLOGICAL: Alert and oriented x4.Normal gait and speech. Cranial nerves II through XII grossly intact. SKIN: Warm, dry, no laceration, no petechiae, no rashes or lesions. Course Orders Ordered: ED Orders 09/03/23 21:55 XR chest 1V Stat EKG-12 Lead Stat 09/03/23 22:12 Complete Blood Count AUTO DIFF Stat Comprehensive Metabolic Panel Stat Lipase Stat Magnesium Stat PTT Partial Thromboplastin Levon Stat Prothrombin Time INR Stat Troponin & CK Cardiac Panel Stat 09/04/23 00:30 Trop I [Troponin I] Stat Discontinued Medications Aspirin (Aspirin 81 Mg Chew Tab) 324 mg PO NOW ONE Stop: 09/03/23 21:56 Last Admin: 09/03/23 22:05 Dose: 324 mg Documented By: TRINITY Nitroglycerin (Nitroglycerin 0.4 Mg Sl Tab) 0.4 mg SL [id number] PRN PRN Reason: Chest Pain Last Admin: 09/03/23 22:26 Dose: 0.4 mg Documented By: Admin: 09/03/23 22:21 Dose: 0.4 mg Documented By: Admin: 09/03/23 22:12 Dose: 0.4 mg Documented By: TRINITY Vital Signs Vital signs: Vital Signs - 8 hr 09/03/23 21:48 09/03/23 22:06 09/03/23 22:07 Temperature 97.8 F Pulse Rate 57 L 64 Respiratory Rate 16 13 Blood Pressure 226/106 H 237/105 H Pulse Oximetry 98 96 Oxygen Delivery Method Room Air 09/03/23 22:07 09/03/23 22:12 09/03/23 22:15 Temperature Pulse Rate 62 64 61 Respiratory Rate 12 Blood Pressure 205/107 H Pulse Oximetry 97 97 Oxygen Delivery Method 09/03/23 22:15 09/03/23 22:20 09/03/23 22:20 Temperature Pulse Rate 67 Respiratory Rate 13 Blood Pressure 208/91 H 192/90 H Pulse Oximetry 96 Oxygen Delivery Method 09/03/23 22:21 09/03/23 22:26 09/03/23 22:26 Temperature Pulse Rate 65 62 62 Respiratory Rate 12 Blood Pressure 192/90 H 186/94 H Pulse Oximetry 94 Oxygen Delivery Method 09/03/23 22:26 09/03/23 22:30 09/03/23 22:30 Temperature Pulse Rate 62 Respiratory Rate 19 Blood Pressure 186/94 H 184/97 H Pulse Oximetry 94 Oxygen Delivery Method 09/03/23 22:35 09/03/23 22:35 09/03/23 22:40 Temperature Pulse Rate 57 L Respiratory Rate 13 Blood Pressure 184/92 H 184/108 H Pulse Oximetry 95 Oxygen Delivery Method 09/03/23 22:40 09/03/23 23:00 09/03/23 23:01 Temperature Pulse Rate 53 L 53 L Respiratory Rate 17 25 H Blood Pressure 183/93 H Pulse Oximetry 96 97 Oxygen Delivery Method 09/03/23 23:01 09/03/23 23:30 09/03/23 23:31 Temperature Pulse Rate 52 L 52 L 50 L Respiratory Rate 22 17 20 Blood Pressure Pulse Oximetry 97 96 96 Oxygen Delivery Method 09/03/23 23:31 09/04/23 00:00 09/04/23 00:01 Temperature Pulse Rate 50 L Respiratory Rate 20 Blood Pressure 182/86 H 175/84 H Pulse Oximetry 96 Oxygen Delivery Method 09/04/23 00:01 09/04/23 00:30 09/04/23 00:31 Temperature Pulse Rate 50 L 52 L Respiratory Rate 19 14 Blood Pressure 193/92 H Pulse Oximetry 96 95 Oxygen Delivery Method 09/04/23 00:31 09/04/23 01:00 09/04/23 01:01 Temperature Pulse Rate 55 L 52 L Respiratory Rate 16 19 Blood Pressure 192/85 H Pulse Oximetry 96 94 Oxygen Delivery Method 09/04/23 01:01 09/04/23 01:25 09/04/23 01:25 Temperature Pulse Rate 51 L 57 L Respiratory Rate 15 25 H Blood Pressure 175/77 H Pulse Oximetry 96 98 Oxygen Delivery Method 09/04/23 01:30 09/04/23 01:31 09/04/23 01:31 Temperature Pulse Rate 57 L 51 L Respiratory Rate 15 18 Blood Pressure 184/79 H Pulse Oximetry 98 Oxygen Delivery Method 09/04/23 01:50 Temperature 97.6 F Pulse Rate Respiratory Rate Blood Pressure Pulse Oximetry Oxygen Delivery Method MDM - Chest Pain Lab Data 09/03/23 22:12 09/03/23 22:12 Labs: Lab Results 09/03/23 09/04/23 Range/Units 22:12 00:30 WBC 5.9 (4.5-11.0) X10^3/uL RBC 4.35 (4.0-5.2) X10^6/uL Hgb 13.3 (12.0-16.0) g/dL Hct 39.7 (36-46) % MCV 91.2 (80-100) fL MCH 30.6 (26-34) PG MCHC 33.6 (30-36) % RDW 14.2 (11.6-14.8) % Plt Count 240 (150-400) X10^3/uL Neut % (Auto) 61.6 (50-75) % Lymph % (Auto) 25.9 (25-40) % [place] % (Auto) 9.0 (3-14) % Eos % (Auto) 2.7 (2-4) % Baso % (Auto) 0.8 (0-2) % Neut # (Auto) 3600 (5377-7715) /uL Lymph # (Auto) 1500 (7734-3690) /uL [place] # (Auto) 500 (0-900) /uL Eos # (Auto) 200 (0-450) /uL Baso # (Auto) 0 (0-100) /uL PT 10.8 (9.4-12.5) SECONDS INR 0.9 (0.9-1.3) APTT 33 (25.1-36.5) SECONDS Sodium 134 L (137-145) mmol/L Potassium 4.3 (3.4-5.1) mmol/L Chloride 100 (98-107) mmol/L Carbon Dioxide 24 (22-32) mmol/L BUN 21 H (7-17) mg/dL Creatinine 0.59 (0.52-1.04) mg/dL Estimated GFR > 60 (>60) mL/min BUN/Creatinine Ratio 35.6 H (6-22) Glucose 112 H (80-110) mg/dL Calcium 9.5 (8.4-10.2) mg/dL Magnesium 2.0 (1.6-2.3) mg/dL Total Bilirubin 0.7 (0.2-1.3) mg/dL AST 32 (14-36) IU/L ALT 26 (<35) IU/L Alkaline Phosphatase 58 (38-126) U/L Total Creatine Kinase 56 (30-135) U/L Troponin I < 0.012 < 0.012 (0.01-0.034) ng/mL Total Protein 7.1 (6.3-8.2) g/dL Albumin 4.1 (3.5-5.0) g/dL Globulin 3.0 (1.7-4.1) g/dL Albumin/Globulin Ratio 1.4 (1.0-2.8) Lipase 58 (23-300) U/L Imaging Data Chest x-ray: Radiologist's Impression: PROCEDURE: XR CHEST 1V INDICATIONS: chest pain TECHNIQUE: One view of the chest was acquired. COMPARISON: [facility], CR, XR CHEST 1V, 11/05/2020, 14:09. [facility], CR, XR CHEST 2V, 10/20/2019, 9:15. FINDINGS: Surgical changes and devices: None. Lungs and pleura: Lungs are clear. No pleural effusions or pneumothorax. Mediastinum: Mediastinal contours appear normal. Heart size is normal. Bones and chest wall: No suspicious bony lesions. Overlying soft tissues appear unremarkable. IMPRESSION: No acute cardiopulmonary abnormality is seen. Dictated by: Michael Hansen M.D. on 09/03/2023 at 22:10 ECG Data Interpretation: EKG 1. Sinus rhythm rate 63 [place] interval 174 QRS [address] changes EKG 2. Sinus rhythm T-wave inversion in lead 3 no other T-wave changes no ST changes MDM Narrative Medical decision making narrative: Patient is 78-year-old female presenting today with elevated blood pressure. She was having some mild chest discomfort which resolved after 1 nitro however nursing gave her 3 nitros to help her blood pressure. She tolerated it well blood pressure decreased. She has had fluctuating blood pressure seems like. She has no focal deficits headache is gone. Blood work has been reviewed without significant clinical abnormality Chest x-ray reviewed no abnormality EKGs have been reviewed Patient's blood pressure is rising slightly but remaining under 200. Recommend that she talk to her primary care provider about her medication. It sounds as though she has restarted her losartan twice daily. She does not have any evidence of end-organ damage. Her symptoms of improved and resolved. Discharge Plan Departure Patient Disposition: Home Clinical Impression: Hypertension Instructions: High Blood Pressure Activity Restrictions/Additional Instructions: *You have been diagnosed with hypertension *What to do: At this time check your blood pressure 1 to 2 times daily record it and discuss with your primary care provider regards to your medication *Continue to take medications as directed *Follow up with your primary care provider in 2-3 days or call [phone] *Return to ER if you should have headache chest pain shortness of breath or any new, worsening or concerning symptoms Prescriptions: No Action rosuvastatin 20 mg tablet 20 mg PO BEDTIME Qty: 90 3RF fluoxetine 20 mg capsule 40 mg PO DAILY Qty: 120 1RF spironolactone 25 mg tablet 25 mg PO DAILY Qty: 120 0RF (DME) blood pressure kit Qty: 1 0RF Rx Instructions: check BP twice daily losartan 50 mg tablet 50 mg PO DAILY Qty: 90 3RF atenolol 25 mg tablet 25 mg PO DAILY Qty: 60 1RF fluticasone propionate [Flonase Allergy Relief] 9.9 ML spray,suspension 1 spray Intranasal DAILY Referrals: Philip June MD [Primary Care Provider] - Stand Alone Forms: Patient Portal/API
[2023-09-04] VITALS (10 sets, daily range): BP systolic 175–193; BP diastolic 77–92; PULSE 50–57; RESP 14–25; TEMP 36.4; O2SAT 94–98
[2023-09-04 01:14] LABS: Troponin I < 0.012 ng/mL (0.01-0.034)
== END 2023-09-04 01:51 | disposition home or self-care (01) ==
PROVIDERS: Emergency Provider Emergency Medicine; PCP Family Medicine
DX: I10 Essential (primary) hypertension (principal); R07.9 Chest pain, unspecified
CPT/HCPCS: 36415; 71045; 80053; 82550; 83690; 83735; 84484; 85025; 85610; 85730; 93005; 99284

== ENCOUNTER → 2023-09-15 11:07 | Outpatient (CLI) | payer OTHER, SELFPAY ==
[2023-09-15 12:22] LABS: Alanine Aminotransferase 22 IU/L (<35); Albumin 4.2 g/dL (3.5-5.0); Albumin Globulin Ratio 1.4 (1.0-2.8); Alkaline Phosphatase 54 U/L (38-126); Aspartate Aminotransferase 32 IU/L (14-36); BUN Creatinine Ratio 32.2 (6-22); Bilirubin Total 0.8 mg/dL (0.2-1.3); Blood Urea Nitrogen 19 mg/dL (7-17); Calcium 9.5 mg/dL (8.4-10.2); Carbon Dioxide 24 mmol/L (22-32); Chloride 100 mmol/L (98-107); Estimated Glomerular Filt Rate > 60 mL/min (>60); Globulin 3.1 g/dL (1.7-4.1); Glucose 89 mg/dL (80-110); HEMOLYSIS 23 (0-50); Potassium 4.5 mmol/L (3.4-5.1); Sodium 134 mmol/L (137-145); Total Protein 7.3 g/dL (6.3-8.2)
== END ==
PROVIDERS: PCP Family Medicine; Referring Provider Family Medicine; Visit Provider Family Medicine
DX: E26.9 Hyperaldosteronism, unspecified (principal); I70.1 Atherosclerosis of renal artery; R53.83 Other fatigue; I10 Essential (primary) hypertension
CPT/HCPCS: 36415; 80053

== ENCOUNTER → 2023-12-13 11:25 | Outpatient (CLI) | payer MEDICARE, SELFPAY ==
[2023-12-13 13:33] LABS: Alanine Aminotransferase 24 IU/L (<35); Albumin 4.1 g/dL (3.5-5.0); Albumin Globulin Ratio 1.7 (1.0-2.8); Alkaline Phosphatase 65 U/L (38-126); Aspartate Aminotransferase 32 IU/L (14-36); BUN Creatinine Ratio 40.6 (6-22); Bilirubin Total 0.6 mg/dL (0.2-1.3); Blood Urea Nitrogen 26 mg/dL (7-17); Calcium 9.3 mg/dL (8.4-10.2); Carbon Dioxide 25 mmol/L (22-32); Chloride 103 mmol/L (98-107); Estimated Glomerular Filt Rate > 60 mL/min (>60); Globulin 2.4 g/dL (1.7-4.1); Glucose 88 mg/dL (80-110); HEMOLYSIS < 15 (0-50); Potassium 4.9 mmol/L (3.4-5.1); Sodium 134 mmol/L (137-145); Total Protein 6.5 g/dL (6.3-8.2)
== END ==
PROVIDERS: PCP Family Medicine; Referring Provider Family Medicine; Visit Provider Family Medicine
DX: R53.83 Other fatigue (principal); I70.1 Atherosclerosis of renal artery; I10 Essential (primary) hypertension; E26.9 Hyperaldosteronism, unspecified
CPT/HCPCS: 36415; 80053

== ENCOUNTER → 2024-05-05 08:18 | Outpatient (CLI) | payer MEDICARE, SELFPAY | PROVIDERS: PCP Family Medicine; Visit Provider Physician Assistant Surgical | DX: R30.0 Dysuria (principal) | CPT/HCPCS: 87086 ==

== ENCOUNTER 2024-05-12 09:12 | Emergency (ER) | payer MEDICARE, SELFPAY ==
[2024-05-12 09:15] VITALS: BP 147/68; PULSE 71; RESP 16; TEMP 36.9; O2SAT 100; BMI 30.5
[2024-05-12 10:42] LABS: Add Manual Diff / Slide Review NO; Basophils Absolute Auto 100 /uL (0-100); Basophils Percent Auto 0.6 % (0-2); Eosinophils Absolute Auto 200 /uL (0-450); Eosinophils Percent Auto 1.7 % (2-4); Hematocrit 39.3 % (36-46); Hemoglobin 13.3 g/dL (12.0-16.0); Lymphocytes Absolute Auto 1300 /uL (1100-4500); Lymphocytes Percent Auto 12.5 % (25-40); Mean Corpuscular HGB Conc 33.9 % (30-36); Mean Corpuscular Hemoglobin 30.7 PG (26-34); Mean Corpuscular Volume 90.7 fL (80-100); Monocytes Absolute Auto 700 /uL (0-900); Monocytes Percent Auto 7.2 % (3-14); Neutrophils Absolute Auto 7900 /uL (1500-7000); Platelet Count 383 X10^3/uL (150-400); Red Blood Cell Count 4.34 X10^6/uL (4.0-5.2); Red Cell Distribution Width 14.2 % (11.6-14.8); White Blood Cell Count 10.2 X10^3/uL (4.5-11.0)
[2024-05-12 10:56] LABS: Alanine Aminotransferase 45 IU/L (<35); Albumin 4.4 g/dL (3.5-5.0); Albumin Globulin Ratio 1.4 (1.0-2.8); Alkaline Phosphatase 86 U/L (38-126); Aspartate Aminotransferase 38 IU/L (14-36); BUN Creatinine Ratio 36.8 (6-22); Bilirubin Total 0.5 mg/dL (0.2-1.3); Blood Urea Nitrogen 21 mg/dL (7-17); Calcium 9.7 mg/dL (8.4-10.2); Carbon Dioxide 27 mmol/L (22-32); Chloride 98 mmol/L (98-107); Estimated Glomerular Filt Rate > 60 mL/min (>60); Globulin 3.1 g/dL (1.7-4.1); Glucose 94 mg/dL (80-110); HEMOLYSIS < 15 (0-50); Potassium 4.8 mmol/L (3.4-5.1); Sodium 132 mmol/L (137-145); Total Protein 7.5 g/dL (6.3-8.2)
--- NOTE | 2024-05-12 10:56 | PC.NURSE ---
Pt tolerating PO fluids. Has had diarrhea for 2x weeks and endorses it feels similar to when she had cdiff and was admitted to the hospital. Denies dizziness, abdominal pain, nausea/vomiting. She states had 1x episode of abdominal pain days ago which has resolved. She went to the walk in at that time and a urine sample and culture was performed with negative results.
[2024-05-12 11:18] VITALS: O2SAT 96
[2024-05-12 11:19] VITALS: BP 163/81; PULSE 63; O2SAT 97
[2024-05-12 12:29] LABS: Adenovirus F 40/41 Not Detected (Not Detect); Astrovirus Not Detected (Not Detect); Campylobacter Not Detected (Not Detect); Clostridium difficile toxin AB Not Detected (Not Detect); Cryptosporidium Not Detected (Not Detect); Cyclospora cayetanensis Not Detected (Not Detect); Entamoeba histolytica Not Detected (Not Detect); Enteroaggregative E.coli Not Detected (Not Detect); Enteropathogenic E.coli Detected (Not Detect); Enterotoxigenic E.coli It/st Not Detected (Not Detect); Giardia lamblia Not Detected (Not Detect); Norovirus GI/GII Not Detected (Not Detect); Plesiomonsa shigelloides Not Detected (Not Detect); Rotavirus A Not Detected (Not Detect); Salmonella Not Detected (Not Detect); Sapovirus Not Detected (Not Detect); Shiga-like toxin-prod E.coli Not Detected (Not Detect); Shigella/Enteroinvasive E.coli Not Detected (Not Detect); Vibrio Not Detected (Not Detect); Vibrio cholerae Not Detected (Not Detect); Yersinia enterocolitica Not Detected (Not Detect)
--- NOTE | 2024-05-12 12:36 | ED_ITS ---
HPI - Nausea/Vomiting/Diarrhea General Chief complaint: Nausea/Vomiting/Diarrhea Stated complaint: DIARREA Time Seen by Provider: 05/12/24 09:45 Source: patient Mode of arrival: Ambulatory History of Present Illness HPI Narrative: Patient 79-year-old female history of hypertension presenting today with 2 weeks of diarrhea. She reports that 8 years ago she had an episode of C diff after an antibiotic for dental infection. She says she took vancomycin recovered and has not had any issues since. However she started with diarrhea 2 weeks ago. She did a brat diet she tried to stay hydrated by the started a 2nd leak she started feeling better started eating eating eggs this week even had a formed stool however this morning she woke up and had liquid diarrhea again. She has been feeling very weak and tired no significant fever. She does share home with daughter and son-in-law they do not have symptoms. She has been able to stay in her own room and use her own bathroom. She is some mild abdominal cramping. No nausea or vomiting. She is frustrated because she thought she was getting better and now is not Related Data Home Medications Medication Instructions Recorded Confirmed fluticasone propionate 50 1 spray intranasal DAILY 09/07/19 05/05/24 mcg/actuation nasal spray,suspension (Flonase Allergy Relief) Previous Rx's Medication Instructions Recorded blood pressure kit #1 ea 08/14/19 rosuvastatin 20 mg tablet 20 mg PO BEDTIME #90 tabs 06/17/23 atenolol 25 mg tablet 25 mg PO DAILY #90 tabs 09/05/23 losartan 50 mg tablet 50 mg PO BID #180 tabs 09/05/23 spironolactone 25 mg tablet 25 mg PO DAILY #90 tabs 09/05/23 fluoxetine 20 mg capsule 20 mg PO DAILY #90 caps 12/16/23 ciprofloxacin HCl 500 mg tablet 500 mg PO BID #6 tabs 05/12/24 (Cipro) Allergies Allergy/AdvReac Type Severity Reaction Status Date / Time azithromycin [AZITHROMYCIN] Allergy Severe THROAT Verified 05/12/24 09:20 SWELLING & SOB clindamycin AdvReac Mild Diarrhea Verified 05/12/24 09:20 sulfamethoxazole AdvReac Mild INSOMNIA Verified 05/12/24 09:20 [From BACTRIM] trimethoprim [From BACTRIM] AdvReac Mild INSOMNIA Verified 05/12/24 09:20 Patient History Medical History (Updated 05/12/24 @ 13:12 by Chrissie Arreguin DO) Varicose veins of ankle Venous stasis Ventricular ectopic activity Abdominal pain Renal artery stenosis (~10/08/19) Fatigue (06/2019) Hypertension Hyperlipidemia Surgical History Status post vaginal hysterectomy Social History Smoking Status: Never smoker Smoking Status: Never smoker alcohol intake frequency: holidays/special occasions only Substance Use Type: does not use Exam Initial Vital Signs Initial Vital Signs: Vital Signs Temperature 98.4 F 05/12/24 09:15 Pulse Rate 71 05/12/24 09:15 Respiratory Rate 16 05/12/24 09:15 Blood Pressure 147/68 H 05/12/24 09:15 Pulse Oximetry 100 05/12/24 09:15 Oxygen Delivery Method Room Air 05/12/24 09:15 GENERAL: Alert 79-year-old female appears to not feel well HEENT: Head atraumatic,EOMI, pupils reactive, face symmetric, moist mucous membranes CARDIOVASCULAR: Regular rate and rhythm without murmurs, rubs or gallops. RESPIRATORY: Breath sounds equal bilaterally, no wheezes rales or rhonchi. ABDOMEN: Soft, nontender. Normoactive bowel sounds all 4 quadrants. No guarding or rebound. EXTREMITIES: Normal range of motion, no clubbing or edema. Neurovascularly intact NEUROLOGICAL: Alert and oriented x4.Normal gait and speech. SKIN: Warm, dry, no laceration, no petechiae, no rashes or lesions. Course Orders Ordered: ED Orders 05/12/24 10:30 GI Panel (Film Array) Stat 05/12/24 10:33 CBC Auto Diff [Complete Blood Count AUTO DIFF] Stat CMP [Comprehensive Metabolic Panel] Stat Discontinued Medications Ciprofloxacin (Ciprofloxacin 250 Mg Tablet) 500 mg PO NOW ONE Stop: 05/12/24 12:55 Last Admin: 05/12/24 13:09 Dose: 500 mg Documented By: KATY Vital Signs Vital signs: Vital Signs - 8 hr 05/12/24 11:18 05/12/24 11:19 05/12/24 11:19 Temperature Pulse Rate 63 Respiratory Rate Blood Pressure 163/81 H Pulse Oximetry 96 97 Oxygen Delivery Method Room Air 05/12/24 13:34 Temperature 97.8 F Pulse Rate 66 Respiratory Rate 18 Blood Pressure 181/84 H Pulse Oximetry 99 Oxygen Delivery Method Room Air MDM - Nausea/Vomiting/Diarrhea Lab Data 05/12/24 10:33 05/12/24 10:33 Labs: Lab Results 05/12/24 05/12/24 Range/Units 10:30 10:33 WBC 10.2 (4.5-11.0) X10^3/uL RBC 4.34 (4.0-5.2) X10^6/uL Hgb 13.3 (12.0-16.0) g/dL Hct 39.3 (36-46) % MCV 90.7 (80-100) fL MCH 30.7 (26-34) PG MCHC 33.9 (30-36) % RDW 14.2 (11.6-14.8) % Plt Count 383 (150-400) X10^3/uL Neut % (Auto) 78.0 H (50-75) % Lymph % (Auto) 12.5 L (25-40) % [place] % (Auto) 7.2 (3-14) % Eos % (Auto) 1.7 L (2-4) % Baso % (Auto) 0.6 (0-2) % Neut # (Auto) 7900 H (8688-7634) /uL Lymph # (Auto) 1300 (3975-9893) /uL [place] # (Auto) 700 (0-900) /uL Eos # (Auto) 200 (0-450) /uL Baso # (Auto) 100 (0-100) /uL Sodium 132 L (137-145) mmol/L Potassium 4.8 (3.4-5.1) mmol/L Chloride 98 (98-107) mmol/L Carbon Dioxide 27 (22-32) mmol/L BUN 21 H (7-17) mg/dL Creatinine 0.57 (0.52-1.04) mg/dL Estimated GFR > 60 (>60) mL/min BUN/Creatinine Ratio 36.8 H (6-22) Glucose 94 (80-110) mg/dL Calcium 9.7 (8.4-10.2) mg/dL Total Bilirubin 0.5 (0.2-1.3) mg/dL AST 38 H (14-36) IU/L ALT 45 H (<35) IU/L Alkaline Phosphatase 86 (38-126) U/L Total Protein 7.5 (6.3-8.2) g/dL Albumin 4.4 (3.5-5.0) g/dL Globulin 3.1 (1.7-4.1) g/dL Albumin/Globulin Ratio 1.4 (1.0-2.8) Stl C. cayetanensis PCR Not detected (Not Detect) Stool Rotavirus (PCR) Not detected (Not Detect) Stool Adenovirus (PCR) Not detected (Not Detect) Stool Astrovirus (PCR) Not detected (Not Detect) Stool Cryptosporidium PCR Not detected (Not Detect) Stl E.coli Shiga Tox PCR Not detected (Not Detect) St Sh/Enteroin Ecoli PCR Not detected (Not Detect) Stl Enterotoxigenic E PCR Not detected (Not Detect) Stool EPEC (PCR) Detected (Not Detect) Stl E. histolytica PCR Not detected (Not Detect) Stool Giardia Lamblia PCR Not detected (Not Detect) Stool Sapovirus (PCR) Not detected (Not Detect) Stl P. shigelloides PCR Not detected (Not Detect) St Y.enterocolitica PCR Not detected (Not Detect) Stool Vibrio (PCR) Not detected (Not Detect) Stl Vibrio cholerae PCR Not detected (Not Detect) Stl Enteroaggr Ecoli PCR Not detected (Not Detect) Stl Norovirus GI/GII PCR Not detected (Not Detect) Campylobacter (PCR) Not detected (Not Detect) C. difficile Tox (PCR) Not detected (Not Detect) Salmonella (PCR) Not detected (Not Detect) Urine Dip Bedside Urine Glucose Negative Bedside Urine Bilirubin - Negative Bedside Urine Ketone - Negative Urine Specific [place] 1.020 Bedside Urine Occult Blood - Negative Bedside Urine pH 6.0 Bedside Urine Protein - Negative Bedside Urine Urobilinogen - Negative Bedside Urine Nitrite - Negative Bedside Urine Leukocytes - Negative Esterase MDM Narrative Medical decision making narrative: RICKIE CC: Diarrhea Complicating co-morbidities: Remote history C diff 8 years ago Medical records reviewed: Recent walk-in clinic visit on 05/05/2024 for UTI like symptoms Differential considered: Gastroenteritis seeds Exam documented above, pertinent findings include: Appears well abdomen soft nontender vitals stable Lab Test results independently reviewed as above. Pertinent findings: GI panel positive for enteropathic ecoli WBC 10.2, CMP sodium 132, potassium 4.8 creatinine 0.51 bicarb 27 Bilirubin liver enzymes and lipase within normal limits Imaging studies independently reviewed: None Treatments: Cipro 500 mg x 1 Re-evaluations: Patient tolerating p.o. fluids Discussion: At this time patient has been having ongoing diarrhea for greater than 10 days without fever or leukocytosis. GI panel today is positive for enteropathogenic E coli. Discussion with her about always risk for Clostridium difficile with antibiotics. However with ongoing diarrhea do think reasonable to try ciprofloxacin. She has anaphylactic reaction to azithromycin. She overall appears well. Nontoxic overall reassuring no significant dehydration. Discharge Plan Departure Patient Disposition: Home Clinical Impression: Colitis due to enteropathogenic Escherichia coli Instructions: Gastritis Activity Restrictions/Additional Instructions: *You have been diagnosed with enteropathogenic Ecoli *What to do: Increase fluids as tolerated recommend Pedialyte or something with electrolytes and sugar may increase diet as tolerated *Continue to take medications as directed Cipro 500 mg twice a day for 3 days *Follow up with your primary care provider in 2-3 days or call [phone] *Return to ER if you should have ongoing diarrhea abdominal pain fever nausea vomiting dizziness lightheadedness weakness [or] any new, worsening or concerning symptoms Prescriptions: New ciprofloxacin HCl [Cipro] 500 mg tablet 500 mg PO BID Qty: 6 0RF No Action rosuvastatin 20 mg tablet 20 mg PO BEDTIME Qty: 90 3RF (DME) blood pressure kit Qty: 1 0RF Rx Instructions: check BP twice daily losartan 50 mg tablet 50 mg PO BID Qty: 180 3RF spironolactone 25 mg tablet 25 mg PO DAILY Qty: 90 3RF atenolol 25 mg tablet 25 mg PO DAILY Qty: 90 1RF fluoxetine 20 mg capsule 20 mg PO DAILY Qty: 90 3RF fluticasone propionate [Flonase Allergy Relief] 9.9 ML spray,suspension 1 spray Intranasal DAILY Referrals: Philip June MD [Primary Care Provider] - Stand Alone Forms: Patient Portal/API
[2024-05-12] MEDS: CIPROFLOXACIN 250 MG TABLET 500 MG PO (13:09)
[2024-05-12 13:34] VITALS: BP 181/84; PULSE 66; RESP 18; TEMP 36.6; O2SAT 99
== END 2024-05-12 13:35 | disposition home or self-care (01) ==
PROVIDERS: Emergency Provider Emergency Medicine; PCP Family Medicine
DX: A04.4 Other intestinal Escherichia coli infections (principal)
CPT/HCPCS: 80053; 81003; 85025; 87507; 99283

== ENCOUNTER → 2024-06-05 09:31 | Outpatient (CLI) | payer MEDICARE, SELFPAY ==
--- NOTE | 2024-06-05 09:32 | DI.RAD.S_ITS ---
PROCEDURE: XR HIP W PEL IF DONE RT 2V INDICATIONS: Rt hip pain TECHNIQUE: AP pelvis with lateral view(s) of the right hip(s). COMPARISON: None. FINDINGS: Bones: No fractures or dislocations. Prior left hip arthroplasty. Moderate to moderately severe right hip degenerative osteoarthritis with several small rounded lateral hip joint calcific presumed loose bodies. Pelvic ring appears intact. No suspicious bony lesions. Soft tissues: The visualized bowel gas pattern is normal. No suspicious soft tissue calcifications. IMPRESSION: Prior left hip arthroplasty, right hip shows no acute trauma but there is moderate to moderately severe right hip joint osteoarthritis and possible several scattered intra-articular loose bodies that are small in size. Dictated by: Michael Hansen M.D. on 06/05/2024 at 9:59 Approved by: Michael Hansen M.D. on 06/05/2024 at 10:00
== END ==
PROVIDERS: PCP Family Medicine; Referring Provider Family Medicine; Visit Provider Family Medicine
DX: M16.11 Unilateral primary osteoarthritis, right hip (principal); M25.551 Pain in right hip; Z96.641 Presence of right artificial hip joint
CPT/HCPCS: 73502

== ENCOUNTER 2024-06-29 19:55 | Emergency (ER) | payer MEDICARE, SELFPAY ==
[2024-06-29] VITALS (9 sets, daily range): BP systolic 131–199; BP diastolic 63–84; PULSE 54–71; RESP 10–20; TEMP 36.6; O2SAT 94–99; BMI 30.5
--- NOTE | 2024-06-29 20:11 | DI.RAD.S_ITS ---
PROCEDURE: XR CHEST 2V INDICATIONS: shortness of breath TECHNIQUE: 2 views of the chest were acquired. COMPARISON: [facility], , XR CHEST 1V, 09/03/2023, 21:56. FINDINGS: Surgical changes and devices: None. Lungs and pleura: Mild pulmonary vascular congestion is seen. No pleural effusions or pneumothorax. Mediastinum: Mediastinal contours are normal. Heart size is normal. Bones and chest wall: No suspicious bony abnormalities. Soft tissues appear unremarkable. IMPRESSION: Mild congestion. No focal infiltrate, pleural effusion or pneumothorax. Dictated by: Joshua Sharp M.D. on 06/29/2024 at 21:18 Approved by: Joshua Sharp M.D. on 06/29/2024 at 21:18
--- NOTE | 2024-06-29 21:20 | ED_ITS ---
HPI - SOB/Dyspnea General Chief Complaint: Shortness of Breath/Dyspnea Stated Complaint: Cold Symptoms ,SoB Time Seen by Provider: 06/29/24 20:24 Source: patient Mode of arrival: Ambulatory History of Present Illness HPI Narrative: 79-year-old female with history of hypertension presents for nonproductive cough and shortness of breath. Patient has had nasal congestion and cold symptoms. This evening when trying to go to bed she had coughing fits every time she lay down flat and felt like she could not breathe. She has been taking NyQuil and DayQuil for her symptoms without significant relief. Patient states that since she has arrived to the emergency department she feels like her symptoms have improved, but she was concerned that the cough will not allow her to sleep tonight. Related Data Home Medications Medication Instructions Recorded Confirmed fluticasone propionate 50 1 spray intranasal DAILY 09/07/19 05/17/24 mcg/actuation nasal spray,suspension (Flonase Allergy Relief) Previous Rx's Medication Instructions Recorded blood pressure kit #1 ea 08/14/19 rosuvastatin 20 mg tablet 20 mg PO BEDTIME #90 tabs 06/17/23 losartan 50 mg tablet 50 mg PO BID #180 tabs 09/05/23 spironolactone 25 mg tablet 25 mg PO DAILY #90 tabs 09/05/23 fluoxetine 20 mg capsule 20 mg PO DAILY #90 caps 12/16/23 atenolol 25 mg tablet 25 mg PO DAILY #90 tabs 05/21/24 benzonatate 100 mg capsule 100 mg PO BID-TID PRN cough #30 06/29/24 caps Allergies Allergy/AdvReac Type Severity Reaction Status Date / Time azithromycin [AZITHROMYCIN] Allergy Severe THROAT Verified 05/17/24 14:02 SWELLING & SOB clindamycin AdvReac Mild Diarrhea Verified 05/17/24 14:02 sulfamethoxazole AdvReac Mild INSOMNIA Verified 05/17/24 14:02 [From BACTRIM] trimethoprim [From BACTRIM] AdvReac Mild INSOMNIA Verified 05/17/24 14:02 Patient History Medical History Dysphagia (05/07/16) Clostridium difficile diarrhea (09/17/14) Varicose veins of ankle Venous stasis Ventricular ectopic activity Abdominal pain Renal artery stenosis (~10/08/19) Fatigue (06/2019) Hypertension Hyperlipidemia Surgical History Status post vaginal hysterectomy Social History Smoking Status: Never smoker Smoking Status: Never smoker alcohol intake frequency: holidays/special occasions only Substance Use Type: does not use Exam Initial Vital Signs Initial Vital Signs: Vital Signs Temperature 98 F 06/29/24 20:07 Pulse Rate 54 L 06/29/24 20:07 Respiratory Rate 18 06/29/24 20:07 Blood Pressure 192/84 H 06/29/24 20:07 Pulse Oximetry 97 06/29/24 20:07 Oxygen Delivery Method Room Air 06/29/24 20:07 Const: Awake, alert, no acute distress, nontoxic appearing Cardiac: regular rate, regular rhythm RESP: unlabored, clear bilaterally, no wheezing MSK: No edema, full range of motion, pulses equal Skin: Warm, Dry, intact, no rashes Neuro: AO x3, CN II-XII grossly intact, moves all extremities Course Orders Ordered: ED Orders 06/29/24 20:11 XR chest 2V Stat 06/29/24 20:51 RT Consult Eval and Treat NOW Discontinued Medications Albuterol (Albuterol 2.5 Mg/3 Ml Neb (Adult)) 2.5 mg INH NOW ONE Stop: 06/29/24 21:20 Last Admin: 06/29/24 21:31 Dose: 2.5 mg Documented By: MT Albuterol (Albuterol Hfa Prepack) 1 box MISC DIRECTED ONE Stop: 06/29/24 22:09 Last Admin: 06/29/24 22:15 Dose: 1 box Documented By: MR Benzonatate (Benzonatate 100 Mg Capsule) 200 mg PO NOW ONE Stop: 06/29/24 22:18 Last Admin: 06/29/24 22:19 Dose: 200 mg Documented By: MT Guaifenesin/Codeine Phosphate (Codeine/Guaifenesin Liquid 5ml Udc) 10 ml PO NOW ONE Stop: 06/29/24 22:09 Last Admin: 06/29/24 22:43 Dose: Not Given Documented By: VINICIO Vital Signs Vital signs: Vital Signs - 8 hr 06/29/24 20:07 06/29/24 20:39 06/29/24 21:00 Temperature 98 F Pulse Rate 54 L 61 63 Respiratory Rate 18 18 10 L Blood Pressure 192/84 H Pulse Oximetry 97 98 94 Oxygen Delivery Method Room Air 06/29/24 21:14 06/29/24 21:14 06/29/24 21:30 Temperature Pulse Rate 58 L 59 L Respiratory Rate 14 20 Blood Pressure 145/66 H Pulse Oximetry 95 99 Oxygen Delivery Method 06/29/24 21:31 06/29/24 21:31 06/29/24 22:00 Temperature Pulse Rate 59 L 71 Respiratory Rate 15 14 Blood Pressure 131/63 Pulse Oximetry 99 97 Oxygen Delivery Method 06/29/24 22:01 06/29/24 22:01 06/29/24 22:05 Temperature Pulse Rate 69 Respiratory Rate 13 Blood Pressure 199/77 H 181/76 H Pulse Oximetry 96 Oxygen Delivery Method 06/29/24 22:05 Temperature Pulse Rate 63 Respiratory Rate 14 Blood Pressure Pulse Oximetry 98 Oxygen Delivery Method Room Air MDM - SOB/Dyspnea Differential Diagnosis Differential diagnosis: Likely community acquired pneumonia, asthma with exacerbation and other (viral syndrome) Imaging Data Chest x-ray: Radiologist's Impression: PROCEDURE: XR CHEST 2V INDICATIONS: shortness of breath TECHNIQUE: 2 views of the chest were acquired. COMPARISON: [facility], , XR CHEST 1V, 09/03/2023, 21:56. FINDINGS: Surgical changes and devices: None. Lungs and pleura: Mild pulmonary vascular congestion is seen. No pleural effusions or pneumothorax. Mediastinum: Mediastinal contours are normal. Heart size is normal. Bones and chest wall: No suspicious bony abnormalities. Soft tissues appear unremarkable. IMPRESSION: Mild congestion. No focal infiltrate, pleural effusion or pneumothorax. Dictated by: Joshua Sharp M.D. on 06/29/2024 at 21:18 Approved by: Joshua Sharp M.D. on 06/29/2024 at 21:18 [facility] Narrative Medical decision making narrative: Well-appearing patient with cough leading to shortness of breath. Patient is concerned that the cough will not allow her to sleep. Patient is saturating well on room air, conversational without dyspnea, lungs are clear to auscultation in all fraire without rales or rhonchi. Chest x-ray ordered for assessment, however I suspect a nonspecific viral process. Although lungs are clear patient does report allergic asthma. Plan to give single albuterol treatment to see if this helps patient's symptoms. Patient reporting symptomatic improvement after albuterol administration. Uniquesalon Perles given for cough suppression. Chest x-ray read as ?mild congestion? but no consolidation. Patient has no signs or symptoms of volume overload at this time and this is likely due to imaging technique. Patient informed of x-ray results, Arcelia Platt sent to pharmacy of choice. Patient requested an albuterol inhaler for home, which was provided. ED return p recautions discussed. PCP follow up advised. Discharge Plan Departure Patient Disposition: Home Clinical Impression: Upper respiratory infection Instructions: DI for Viral Upper Respiratory Infection -- Adult Activity Restrictions/Additional Instructions: Your x-ray today did not show any signs of pneumonia. Take the cough medication as needed, you may also take [id number] medications such as Robitussin. You may use the inhaler as needed if you feel short of breath. Follow up with your primary care doctor. Prescriptions: New benzonatate 100 mg capsule 100 mg PO BID-TID PRN (Reason: cough) Qty: 30 0RF No Action rosuvastatin 20 mg tablet 20 mg PO BEDTIME Qty: 90 3RF atenolol 25 mg tablet 25 mg PO DAILY Qty: 90 1RF (DME) blood pressure kit Qty: 1 0RF Rx Instructions: check BP twice daily losartan 50 mg tablet 50 mg PO BID Qty: 180 3RF spironolactone 25 mg tablet 25 mg PO DAILY Qty: 90 3RF fluoxetine 20 mg capsule 20 mg PO DAILY Qty: 90 3RF fluticasone propionate [Flonase Allergy Relief] 9.9 ML spray,suspension 1 spray Intranasal DAILY Referrals: Philip June MD [Primary Care Provider] - Stand Alone Forms: Patient Portal/API/Survey
[2024-06-29] MEDS: ALBUTEROL 2.5 MG/3 ML NEB (ADULT) INH (21:31)
[2024-06-29] MEDS: ALBUTEROL HFA PREPACK 1 BOX MISC (22:15)
[2024-06-29] MEDS: BENZONATATE 100 MG CAPSULE 200 MG PO (22:19)
== END 2024-06-29 22:45 | disposition home or self-care (01) ==
PROVIDERS: Emergency Provider Emergency Medicine; PCP Family Medicine
DX: J06.9 Acute upper respiratory infection, unspecified (principal)
CPT/HCPCS: 71046; 99283; J7613

== ENCOUNTER → 2024-11-01 08:21 | Outpatient (CLI) | payer MEDICARE, SELFPAY ==
[2024-11-01 09:19] LABS: Add Manual Diff / Slide Review NO; Basophils Absolute Auto 100 /uL (0-100); Basophils Percent Auto 0.9 % (0-2); Eosinophils Absolute Auto 200 /uL (0-450); Eosinophils Percent Auto 2.5 % (2-4); Hematocrit 41.7 % (36-46); Hemoglobin 14.1 g/dL (12.0-16.0); Lymphocytes Absolute Auto 1000 /uL (1100-4500); Lymphocytes Percent Auto 16.8 % (25-40); Mean Corpuscular HGB Conc 33.7 % (30-36); Mean Corpuscular Hemoglobin 30.8 PG (26-34); Mean Corpuscular Volume 91.3 fL (80-100); Monocytes Absolute Auto 400 /uL (0-900); Monocytes Percent Auto 7.1 % (3-14); Neutrophils Absolute Auto 4400 /uL (1500-7000); Neutrophils Percent Auto 72.7 % (50-75); Platelet Count 277 X10^3/uL (150-400); Red Blood Cell Count 4.57 X10^6/uL (4.0-5.2); Red Cell Distribution Width 14.4 % (11.6-14.8); White Blood Cell Count 6.1 X10^3/uL (4.5-11.0)
[2024-11-01 09:45] LABS: Alanine Aminotransferase 26 IU/L (<35); Albumin 4.5 g/dL (3.5-5.0); Albumin Globulin Ratio 1.9 (1.0-2.8); Alkaline Phosphatase 59 U/L (38-126); Aspartate Aminotransferase 37 IU/L (14-36); BUN Creatinine Ratio 37.7 (6-22); Bilirubin Total 0.8 mg/dL (0.2-1.3); Blood Urea Nitrogen 26 mg/dL (7-17); Carbon Dioxide 24 mmol/L (22-32); Chloride 99 mmol/L (98-107); Cholesterol 158 mg/dL (140-199); Estimated Glomerular Filt Rate > 60 mL/min (>60); Globulin 2.4 g/dL (1.7-4.1); Glucose 99 mg/dL (80-110); HDL Cholesterol 58 mg/dL (40-60); HEMOLYSIS < 15 (0-50); LDL Cholesterol Calculated 83 mg/dL (<100); Potassium 4.9 mmol/L (3.4-5.1); Sodium 134 mmol/L (137-145); Total Protein 6.9 g/dL (6.3-8.2); Triglycerides 83 mg/dL (35-150)
[2024-11-01 10:15] LABS: TSH w/ Reflex to FT4 3.16 uIU/mL (0.47-4.68)
[2024-11-02 03:40] LABS: Apolipoprotein B 73 mg/dL (<90)
== END ==
PROVIDERS: PCP Family Medicine; Referring Provider Family Medicine; Visit Provider Family Medicine
DX: Z00.00 Encounter for general adult medical examination without abnormal findings (principal); I10 Essential (primary) hypertension; I70.1 Atherosclerosis of renal artery; E26.9 Hyperaldosteronism, unspecified; R53.83 Other fatigue
CPT/HCPCS: 36415; 80053; 80061; 82172; 84443; 85025

== ENCOUNTER 2025-02-06 12:39 | Emergency (ER) | payer MEDICARE, SELFPAY ==
[2025-02-06 12:58] VITALS: BP 182/79; PULSE 55; RESP 16; TEMP 36.6; O2SAT 99; BMI 29.9
--- NOTE | 2025-02-06 13:06 | ED.FALL ---
HPI - Fall <Nannette Landaverde PA-C - Last Filed: 02/06/25 19:47> General Chief Complaint: Fall Stated Complaint: fell and hit head cut it open Time Seen by Provider: 02/06/25 13:06 Source: patient Mode of arrival: Family Vehicle History of Present Illness HPI Narrative: Ms. Mata is a very pleasant 80-year-old female with a past medical history of hypertension who presents to the emergency department for a trip and fall causing a right-sided scalp laceration prior to arrival. Last Tdap 2009. Patient states she was on her back porch, attempting to fix rug that had blown up in the wind when she accidentally caught her foot on 1 of the rugs and fell forward hitting the right side of her head on cement. She called for her son-in-law who helped her up. She had immediate pain of the head. There was no loss of consciousness nausea or vomiting, dizziness, lightheadedness or visual disturbance. She is not having neck pain. She is having pain of her head and her scalp, bleeding is controlled with direct pressure. She does not take blood thinners. She denies any pain of her back, chest, abdomen, upper or lower extremities. Related Data Home Medications ?Medication ?Instructions ?Recorded ?Confirmed fluticasone propionate 50 1 spray intranasal DAILY 09/07/19 01/15/25 mcg/actuation nasal spray,suspension (Flonase Allergy Relief) Previous Rx's ?Medication ?Instructions ?Recorded blood pressure kit #1 ea 08/14/19 fluoxetine 20 mg capsule 20 mg PO DAILY #90 caps 07/10/24 rosuvastatin 20 mg tablet 20 mg PO BEDTIME #90 tabs 07/10/24 atenolol 25 mg tablet 25 mg PO DAILY #90 tabs 09/25/24 losartan 50 mg tablet 50 mg PO BID #180 tabs 01/15/25 spironolactone 25 mg tablet 25 mg PO BID #180 tabs 01/15/25 ondansetron 4 mg disintegrating 4 mg PO Q8H PRN nausea and 02/06/25 tablet vomiting #14 tabs Allergies Allergy/AdvReac Type Severity Reaction Status Date / Time azithromycin (AZITHROMYCIN) Allergy Severe THROAT Verified 01/15/25 08:42 SWELLING & SOB clindamycin AdvReac Mild Diarrhea Verified 01/15/25 08:42 sulfamethoxazole (From AdvReac Mild INSOMNIA Verified 01/15/25 08:42 BACTRIM) trimethoprim (From BACTRIM) AdvReac Mild INSOMNIA Verified 01/15/25 08:42 Review of Systems <Nannette Landaverde PA-C - Last Filed: 02/06/25 19:47> Review of Systems ROS Unobtainable: All systems reviewed & are unremarkable except as noted in HPI and below Patient History <Nannette Landaverde PA-C - Last Filed: 02/06/25 19:47> Medical History Dysphagia (05/07/16) Clostridium difficile diarrhea (09/17/14) Varicose veins of ankle Venous stasis Ventricular ectopic activity Abdominal pain Renal artery stenosis (~10/08/19) Fatigue (06/2019) Hypertension Hyperlipidemia Surgical History Status post vaginal hysterectomy Smoking Status: Never smoker alcohol intake frequency: holidays/special occasions only Exam <Nannette Landaverde PA-C - Last Filed: 02/06/25 19:47> Narrative Exam Narrative: GENERAL: 80 year old patient appears stated age. Well-developed patient, in no acute distress. HEAD: No facial deformities or injuries. There is a palpable approximately 6 cm linear scalp laceration on the right frontal scalp, with surrounded bloody matted hair, no pulsatile bleeding. No other scalp wounds. Normocephalic. EYES: PERRL. Extraocular motions intact. No scleral icterus. No injection or drainage. ENT: No nasal bridge deformity, no septal hematoma. Nose without bleeding, purulent drainage. Throat without erythema, tonsillar hypertrophy or exudate. Airway patent. NECK: Trachea midline. Cervical ROM intact. No midline cervical tenderness. CARDIOVASCULAR: Regular rate and rhythm. RESPIRATORY: ?Nonlabored respirations. ?Speaking in clear, full sentences. ?Clear to auscultation. Breath sounds equal bilaterally. No wheezes, rales, or rhonchi. ? GASTROINTESTINAL: Abdomen soft, non-tender, nondistended. EXTREMITIES: No edema or joint tenderness. No joint pain with range of motion. BACK: Nontender without deformity or crepitance. No flank tenderness. NEURO: AOx3. ?Clear speech. ?Moves all 4 extremities appropriately. SKIN: Skin is warm and dry, no wounds besides right frontal scalp laceration. Initial Vital Signs Initial Vital Signs: Vital Signs Temperature 97.9 F 02/06/25 12:58 Pulse Rate 55 L 02/06/25 12:58 Respiratory Rate 16 02/06/25 12:58 Blood Pressure 182/79 H 02/06/25 12:58 Pulse Oximetry 99 02/06/25 12:58 Oxygen Delivery Method Room Air 02/06/25 12:58 <Estelle Lindsay DO - Last Filed: 02/08/25 18:42> Initial Vital Signs Initial Vital Signs: Vital Signs Temperature 97.9 F 02/06/25 12:58 Pulse Rate 55 L 02/06/25 12:58 Respiratory Rate 16 02/06/25 12:58 Blood Pressure 182/79 H 02/06/25 12:58 Pulse Oximetry 99 02/06/25 12:58 Oxygen Delivery Method Room Air 02/06/25 12:58 Procedures <JAELYN Rosen Last Filed: 02/06/25 19:47> Laceration Repair Laceration 1: Site: scalp Side (If applicable): right Size (cm): 6 Description: linear and flap Depth: simple, single layer Local Anesthetic: lidocaine 1% and with epi Amount of anesthesia used (mL): 5 Pre-repair: wound explored, irrigated extensively (With diluted Betadine and saline) and cleansed with chlorhexadine Skin layer closed with: aubrey (11) Course <JAELYN Rosen Last Filed: 02/06/25 19:47> Orders Ordered: Discontinued Medications Acetaminophen (Acetaminophen 325 Mg Tablet) 650 mg PO NOW ONE Stop: 02/06/25 13:22 Last Admin: 02/06/25 14:01 Dose: 650 mg Documented By: GONZÁLEZ Bacitracin (Bacitracin Oint 0.9 Gm Pckt) 1 applic TOP NOW ONE Stop: 02/06/25 13:22 Last Admin: 02/06/25 14:03 Dose: 1 applic Documented By: GONZÁLEZ Diphtheria/Tetanus/Acell Pertussis (Tet,Diph,Pertuss(Acell),Vac/Pf 0.5 Ml Syringe) 0.5 ml IM .ONCE ONE Stop: 02/06/25 13:22 Last Admin: 02/06/25 14:04 Dose: 0.5 ml Documented By: GONZÁLEZ Lidocaine/Epinephrine (Lidocaine 1% W/Epi 10ml) 5 ml SUBCUT NOW ONE Stop: 02/06/25 13:22 Last Admin: 02/06/25 14:04 Dose: 5 ml Documented By: GONZÁLEZ Ondansetron HCl (Ondansetron 4 Mg Odt) 4 mg SL NOW ONE Stop: 02/06/25 13:22 Last Admin: 02/06/25 14:04 Dose: 4 mg Documented By: GONZÁLEZ Vital Signs Vital signs: Vital Signs - 8 hr 02/06/25 12:58 02/06/25 16:54 Temperature 97.9 F Pulse Rate 55 L 56 L Respiratory Rate 16 16 Blood Pressure 182/79 H 152/81 H Pulse Oximetry 99 99 Oxygen Delivery Method Room Air Room Air <Estelle Lindsay, - Last Filed: 02/08/25 18:42> Orders Ordered: Discontinued Medications Acetaminophen (Acetaminophen 325 Mg Tablet) 650 mg PO NOW ONE Stop: 02/06/25 13:22 Last Admin: 02/06/25 14:01 Dose: 650 mg Documented By: GONZÁLEZ Bacitracin (Bacitracin Oint 0.9 Gm Pckt) 1 applic TOP NOW ONE Stop: 02/06/25 13:22 Last Admin: 02/06/25 14:03 Dose: 1 applic Documented By: GONZÁLEZ Diphtheria/Tetanus/Acell Pertussis (Tet,Diph,Pertuss(Acell),Vac/Pf 0.5 Ml Syringe) 0.5 ml IM .ONCE ONE Stop: 02/06/25 13:22 Last Admin: 02/06/25 14:04 Dose: 0.5 ml Documented By: GONZÁLEZ Lidocaine/Epinephrine (Lidocaine 1% W/Epi 10ml) 5 ml SUBCUT NOW ONE Stop: 02/06/25 13:22 Last Admin: 02/06/25 14:04 Dose: 5 ml Documented By: GONZÁLEZ Ondansetron HCl (Ondansetron 4 Mg Odt) 4 mg SL NOW ONE Stop: 02/06/25 13:22 Last Admin: 02/06/25 14:04 Dose: 4 mg Documented By: GONZÁLEZ Vital Signs Vital signs: Vital Signs - 8 hr 02/06/25 12:58 02/06/25 16:54 Temperature 97.9 F Pulse Rate 55 L 56 L Respiratory Rate 16 16 Blood Pressure 182/79 H 152/81 H Pulse Oximetry 99 99 Oxygen Delivery Method Room Air Room Air MDM - Fall <Nannette Samm Landaverde PA-C - Last Filed: 02/06/25 19:47> Medical Records Attestation: I reviewed the patient's medical records. Imaging Data CT scan - head: Radiologist's Impression: PROCEDURE: CT HEAD/BRAIN WO CON INDICATIONS: fall head lac left side TECHNIQUE: Noncontrast 4.5 mm thick angled axial sections acquired from the foramen magnum to the vertex, with coronal and sagittal reformats. For radiation dose reduction, the following was used: automated exposure control, adjustment of mA and/or kV according to patient size. COMPARISON: None. FINDINGS: Image quality: Diagnostic. CSF spaces: Basal cisterns are patent. No extra-axial fluid collections. The ventricles are symmetric in size and shape. Brain: No intracranial bleeds or mass effect. There is cerebral volume loss, with resultant ventricular and sulcal prominence. There are periventricular and deep white matter chronic small vessel ischemic changes. There is intracranial internal carotid artery atherosclerosis. Skull and face: Calvarium and visualized facial bones appear intact, without suspicious lesions. Sinuses: Visualized sinuses and mastoids are clear. IMPRESSION: No acute intracranial pathology. No acute skull fracture. Dictated by: Joshua Sharp M.D. on 02/06/2025 at 14:10 Approved by: Joshua Sharp M.D. on 02/06/2025 at 14:11 CT - cervical spine: Radiologist's Impression: PROCEDURE: CT CERVICAL SPINE WO CON INDICATIONS: fall hit head left side lac TECHNIQUE: Noncontrast 3 mm thick sections acquired from the skull base to the T4 level. Sagittal and coronal reformats were then constructed. For radiation dose reduction, the following was used: automated exposure control, adjustment of mA and/or kV according to patient size. COMPARISON: None. FINDINGS: Image quality: Excellent. Bones: No fractures or dislocations. Loss of disc height, degenerative endplate changes and bilateral facet hypertrophic changes are noted throughout cervical spine more notably at C4-5 and C5-6 levels. Visualized superior ribs are intact. Soft tissues: Prevertebral soft tissues are normal in thickness. No paravertebral hematomas. No apical pneumothoraces. IMPRESSION: 1. No displaced fracture or traumatic subluxation. 2. Multilevel spondylitic changes throughout cervical spine. Dictated by: Joshua Sharp M.D. on 02/06/2025 at 14:11 Approved by: Joshua Sharp M.D. on 02/06/2025 at 14:12 [facility] Narrative Medical decision making narrative: 80-year-old female with a past medical history of hypertension who presents to the emergency department for a trip and fall causing a right-sided scalp laceration prior to arrival. Last Tdap 2009. Differential diagnosis includes but is not limited to scalp laceration, hematoma, contusion, fracture, ICH, concussion, etc. On exam the patient is in no acute distress, nontoxic appearing, vital signs appropriate with the exception of mildly elevated blood pressure. She has a palpable right frontal scalp laceration, no other wounds identified. She is neurovascularly intact, no focal neurologic deficits, fall was mechanical in nature and there was no syncope or LOC. No cervical spine tenderness. No blood thinner use. We will update Tdap, cleansed anesthetized and repair scalp wound, and obtain CT imaging of head and neck. We will treat with Tylenol and Zofran. Head and neck CTs reveal no acute traumatic injuries. Patient's wound was extensively irrigated and cleansed, and reapproximated using 11 aubrey. Her hair was cleansed and brushed and then bacitracin was applied to the wound. Discussed proper wound care, staple removal in 7-10 days. We also discussed ibuprofen, Tylenol, Zofran and decreased mental strain for possible concussion type symptoms. She is feeling much better during her ED stay and feels well. Discussed strict ED return precautions follow up with PCP. Patient and her daughter verbalized understanding of all information agreeable with the plan. She is stable for discharge home. Discharge Plan Departure Patient Disposition: Home Clinical Impression: Ground-level fall Laceration of scalp Qualifiers: Encounter type: initial encounter Qualified Code(s): S01.01XA - Laceration without foreign body of scalp, initial encounter Instructions: DI for Laceration Repair -- Aubrey Activity Restrictions/Additional Instructions: Dear Esperanza, Thank you for coming to the emergency department. Today you were evaluated for a scalp laceration. CT imaging of your head and neck did not reveal any traumatic injuries. Today you had a laceration to your scalp. We have placed 11 aubrey. They need to be removed in 7-10 days. You may do this in your doctor's office, the [id number], or here if necessary. Please keep your wound clean, dry, and intact for the next 24 hours. After this time, you may remove the dressing and gently clean the wound with soap and water, then pat dry. Keep the wound clean and covered. Avoid soaking the wound in any water such as a bath, pool, or the ocean. If you develop any signs of wound infection such as increased redness, pus drainage, streaking redness, or fevers, please return to the ER immediately for evaluation. Once sutures are removed and the wound has healed, apply sunscreen daily to reduce the appearance of scars. We updated your tetanus shot today. You likely have a slight concussion and will likely have a mild headache and some nausea for a few days. Avoiding highly stimulating activities and even TV or computers may be helpful in minimizing your symptoms. Avoid activities that will put you at risk for another head injury for at least a week. You can take tylenol or motrin for headache or the prescription provided for nausea/vomiting. Return for worsening or persistent symptoms Please follow up with your primary care doctor within the next 2-3 days for ER follow-up. (If you do not have a PCP you can call [phone]. ?to schedule an appointment with an [facility] Primary Care Provider) IF YOU DEVELOP ANY NEW OR WORSENING SYMPTOMS, RETURN TO THE ER! Please read the attached instructions, they highlight more specific treatments and interventions for you at home. Thank you for letting me participate in your care, Nannette Landaverde PA-C Prescriptions: New ondansetron 4 mg tablet,disintegrating 4 mg PO Q8H PRN (Reason: nausea and vomiting) Qty: 14 0RF No Action atenolol 25 mg tablet 25 mg PO DAILY Qty: 90 3RF (DME) blood pressure kit Qty: 1 0RF Rx Instructions: check BP twice daily rosuvastatin 20 mg tablet 20 mg PO BEDTIME Qty: 90 3RF fluoxetine 20 mg capsule 20 mg PO DAILY Qty: 90 3RF spironolactone 25 mg tablet 25 mg PO BID Qty: 180 3RF losartan 50 mg tablet 50 mg PO BID Qty: 180 3RF fluticasone propionate [Flonase Allergy Relief] 9.9 ML spray,suspension 1 spray Intranasal DAILY Referrals: Philip June MD [Primary Care Provider, Family Practice] Stand Alone Forms: Patient Portal/API ED Sign-out <Estelle Lindsay, - Last Filed: 02/08/25 18:42> Cosign ED Attending Cosignature Attestation: I was immediately available in the department for consultation.
[2025-02-06] MEDS: ACETAMINOPHEN 325 MG TABLET 650 MG PO (14:01)
[2025-02-06] MEDS: BACITRACIN OINT 0.9 GM PCKT 1 APPLIC TOP (14:03)
[2025-02-06] MEDS: ONDANSETRON 4 MG ODT SL (14:04)
[2025-02-06] MEDS: LIDOCAINE 1% W/EPI 10ML 5 ML SUBCUT (14:04)
[2025-02-06] MEDS: TET,DIPH,PERTUSS(ACELL),VAC/PF 0.5 ML SYRINGE IM (14:04)
[2025-02-06 16:54] VITALS: BP 152/81; PULSE 56; RESP 16; O2SAT 99
== END 2025-02-06 16:55 | disposition home or self-care (01) ==
PROVIDERS: Emergency Provider Physician Assistant; PCP Family Medicine
DX: S01.01XA Laceration without foreign body of scalp, initial encounter (principal); W01.198A Fall on same level from slipping, tripping and stumbling with subsequent striking against other object, initial encounter; Z23 Encounter for immunization
CPT/HCPCS: 12002; 70450; 72125; 90471; 99283; 99284; 90715

== ENCOUNTER → 2025-03-20 09:21 | Outpatient (CLI) | payer MEDICARE, SELFPAY ==
[2025-03-20 10:03] LABS: Add Manual Diff / Slide Review NO; Hematocrit 39.2 % (36-46); Hemoglobin 13.3 g/dL (12.0-16.0); Lymphocytes Absolute Auto 1000 /uL (1100-4500); Mean Corpuscular HGB Conc 33.9 % (30-36); Mean Corpuscular Hemoglobin 31.1 PG (26-34); Mean Corpuscular Volume 91.7 fL (80-100); Platelet Count 298 X10^3/uL (150-400)
[2025-03-20 10:24] LABS: Alanine Aminotransferase 23 IU/L (<35); Albumin 4.5 g/dL (3.5-5.0); Albumin Globulin Ratio 1.8 (1.0-2.8); Alkaline Phosphatase 55 U/L (38-126); Blood Urea Nitrogen 22 mg/dL (7-17); Calcium 9.2 mg/dL (8.4-10.2); Carbon Dioxide 24 mmol/L (22-32); Chloride 100 mmol/L (98-107); Estimated Glomerular Filt Rate > 60 mL/min (>60); Globulin 2.5 g/dL (1.7-4.1); Glucose 86 mg/dL (70-99); HEMOLYSIS < 15 (0-50); Potassium 4.6 mmol/L (3.4-5.1); Sodium 134 mmol/L (137-145); Total Protein 7.0 g/dL (6.3-8.2)
[2025-03-20 10:54] LABS: TSH w/ Reflex to FT4 2.27 uIU/mL (0.47-4.68)
[2025-03-20 12:50] LABS: Appearance Urine UA CLEAR; Bilirubin Urine UA NEGATIVE (NEGATIVE); Color Urine UA YELLOW; Glucose Urine UA NEGATIVE (Negative); Ketones Urine UA NEGATIVE (NEGATIVE); Leukocyte Esterase Urine UA NEGATIVE (NEGATIVE); Nitrite Urine UA NEGATIVE (Negative); Occult Blood Urine UA NEGATIVE (Negative); Protein Urine UA NEGATIVE (Negative); Specific Gravity Urine UA 1.010 (1.000-1.035); Urobilinogen Urine UA 0.2 E.U./dL (0.2)
[2025-03-20 12:51] LABS: pH Urine UA 7.0 (4.5-8.0)
[2025-03-20 13:04] LABS: Culture Indicated Urine Cult Not Indicated
== END ==
PROVIDERS: Family Provider Family Medicine; PCP Family Medicine; Referring Provider Family Medicine; Visit Provider Family Medicine
DX: I10 Essential (primary) hypertension (principal); I70.1 Atherosclerosis of renal artery; R42 Dizziness and giddiness
CPT/HCPCS: 36415; 80053; 81001; 84443; 85025

== ENCOUNTER 2025-04-09 09:45 | Outpatient (RCR) | payer MEDICARE, SELFPAY ==
--- NOTE | 2025-03-07 18:52 | PT.OIE ---
Current Diagnoses Strain of muscle, fascia and tendon at neck level, subsequent encounter (03/07/25) Fall on same level, unspecified, subsequent encounter (03/07/25) Past Medical History (Last Updated 02/12/25 @ 10:33 by Philip June MD) Abdominal pain Clostridium difficile diarrhea (09/17/14) Dysphagia (05/07/16) Fatigue (06/2019) Hyperlipidemia Hypertension Neck muscle spasm Renal artery stenosis (~10/08/19) Varicose veins of ankle Venous stasis Ventricular ectopic activity Past Surgical History (Last Reviewed 02/06/25 @ 13:31 by Nannette Landaverde PA-C) Status post vaginal hysterectomy Visit Care Team Role Provider Type Philip June MD Attending Provider Physician Family Provider Primary Care Provider Referring Provider Specialty: Family Practice Address: [address] [place] [address], [facility] Email: [email or web address] Physical Therapy Initial Evaluation PT-OP-A Visit Information Start: 03/05/25 17:05 Freq: Status: Active Protocol: Document 03/07/25 09:45 SAK (Rec: 03/07/25 10:30 SAK Laptop) Out-Patient Physical Therapy Visit Information Visit Information Visit Type Initial Evaluation Visit Note BP 108/70, pulse 72 Visit Start Time 09:45 Visit Stop Time 10:25 Visit Number 1 Number of BOND TRADER Visits 0 Evaluation Information Evaluation Date 03/07/25 Precautions Precautions history HTN PT-OP-B Current Condition Start: 03/05/25 17:05 Freq: Status: Active Protocol: Document 03/07/25 09:45 SAK (Rec: 03/07/25 10:30 SAK Laptop) Current Condition History of Current Condition Onset Date 02/04/25 Current Complaints neck pain History of Current caught toe on rug, tell and the right side of head hit Condition concrete stairs. Initially WAYNE, then gradual onset neck pain. Symptoms constent with concussion. Slept a lot, pain medications. Belkis out of head [address] showed no fracture. States yesterday good day feeling better, had first good night of sleep day before, maybe overdid today feeling woozy and more pain. Reports poor sleep since injury and very poor last night. Hasn't been driving until 1 week ago. Tried going to pool for water walking 1 week ago, moderate increase in pain. Has tried heat, temporary relief. States daughter massaging her neck 5 min felt good, went for massage Tuesday for 30 minutes which increased her pain. Several times a day feels weak, lays down. Moderate decline in function; no unable to go to pool, do yardwork, do woodwork, housework, ADL's painful. Initially very dizzy, no intermittant, mostly feels when she feels weak, breaks out in a sweat, and feels dizzy. No dizziness with change in movement Prior Treatments and muscle relaxants Tests Advil several times per day chiropracter Tuesday, helpful, sees again tomorrow. Treatment Goals Patient/Caregiver minimize pain, return to prior level of function Goals PT-OP-C Subjective Start: 03/05/25 17:05 Freq: Status: Active Protocol: Document 03/07/25 09:45 SAK (Rec: 03/09/25 18:50 SAK Laptop) Patient Questionnaires Neck Disability Index NDI Score 44 OP-PT Pain Assessment Location right CS, [place] Pain Intensity 7 PT-OP-H Neuro Start: 03/05/25 17:05 Freq: Status: Active Protocol: Document 03/07/25 09:45 SAK (Rec: 03/09/25 18:50 SAK Laptop) Sensation Evaluation Gross Sensation Gross Sensation WNL PT-OP-J Posture/Palpation/Skin Start: 03/05/25 17:05 Freq: Status: Active Protocol: Document 03/07/25 09:45 SAK (Rec: 03/09/25 18:50 SAK Laptop) Palpation Assessment Location c/s, [place] R Palpation Findings Soft Tissue Tightness,Muscle Guarding,Tenderness PT-OP-K Range of Motion Start: 03/05/25 17:05 Freq: Status: Active Protocol: Document 03/07/25 09:45 SAK (Rec: 03/07/25 10:30 SAK Laptop) Cervical Spine Range of Motion Cervical Spine Active Flexion 45 Extension 30 Rotation Left 40 Rotation Right 55 Lateral Flexion Left 20 Lateral Flexion 30 Right ROM Limitations Soft Tissue Tightness,Pain Shoulder Goniometric Range of Motion Shoulder sherri Shoulder ROM WFL Yes Testing Position Sitting PT-OP-Q Treatments Start: 03/05/25 17:05 Freq: Status: Active Protocol: Document 03/07/25 09:45 SAK (Rec: 03/09/25 18:50 [facility] Laptop) Manual Therapy Treatment Consent Patient gave verbal Yes consent for manual treatment Soft Tissue Mobilization c/s, [place] Mobilization Type Myofascial Release,Strumming Intensity/Depth gentle Body Position Hooklying Self-Care/Home Management Treatment Education Patient Education Home Exercise Program Other Education gentle c/s ROM, deep breathing PT-OP-R Modalities Start: 03/05/25 17:05 Freq: Status: Active Protocol: Document 03/07/25 09:45 SAK (Rec: 03/09/25 18:50 [facility] Laptop) Hot Pack/Cold Pack Treatment MH Location c/s, [place] Patient Position Hooklying Patient Tolerance Good PT-OP-T Assessment and Plan Start: 03/05/25 17:05 Freq: Status: Active Protocol: Document 03/07/25 09:45 SAK (Rec: 03/07/25 10:30 [facility] Laptop) Physical Therapy Assessment Rehab Potential Rehabilitation Good Potential Evaluation Complexity Number of Personal 1-2 Factors/ Comorbidities Number of Body 3 Systems Impaired Clinical Evolving Presentation at Evaluation Impairments Impairments Pain,Posture,ROM,Soft Tissue Mobility Goals Three Impairment severe impairment in activity tolerance Short Term Goal (STG Patient will be able to do light housekeeping and ADL's ) without experiencing increase in neck pain STG Duration 04/06/25 Grounds Crew Supervisor Goal (LTG) Patient will be able to return to prior level of function which included housekeeping, woodworking, and aquatic exercise LTG Duration 05/07/25 Two Impairment lacking full neck ROM Short Term Goal (STG Patient to be instructed in gentle neck ROM exercises ) for HEP STG Duration 04/06/25 Longterm Goal (LTG) Patient to demonstrate full, pain-free neck ROM for improved function LTG Duration 05/07/25 One Impairment neck disability index score 44% Longterm Goal (LTG) Improve NDI score to no greater than 15% as measure of improved neck function LTG Duration 05/07/25 Assessment Summary Assessment Patient presents to PT with function-limiting neck pain s/p fall at home in which she sustained a concussion. At this time she has neck pain as high as 7/10, worsens with activity, decreases with medications and rest. Patient reports frequently has feelings of being weak and sweaty and has to lay down. Her activity tolerance is severely limited at this time to very light and gentle activity at home, has only driven twice, but although she drove to PT today required PT assist for stability to get back to PT exam room due to feeling weak and woozy and called son-in-law to pick her up. Her BP was lower than normal and has symptoms of postural hypotension. Evaluation limited by high pain level and acuity. Feel she would benefit from PT to decrease her pain, improve her cervical ROM, and help her return to prior level of function. POC was discussed and patient was in agreement. Physical Therapy Plan Frequency and Duration Frequency of 2x/Week Treatment Duration of 8 treatment (weeks) Plan of Care Start 03/07/25 Date Plan of Care End 05/07/25 Date Therapeutic Interventions Therapeutic Home Exercise Program,Manual Therapy,Patient/Caregiver Interventions Education,Self-Care/Home Management,Soft Tissue Mobilization,Taping,Therapeutic Activities,Therapeutic Exercises Modalities Cold Pack/Ice Massage,Electric Stimulation,Hot Packs, Infrared Therapy,Iontophoresis,Ultrasound Next Visit Focus/Plan Next Note Type Treatment Note Next Visit Plan Review HEP, gentle ther ex for cervical ROM, flexibility, deep breathing ex for muscle relaxation and pain relief. Manual therapy and modalities PRN pain
[2025-03-21 09:46] VITALS: BP 109/73; BP 136/80
--- NOTE | 2025-03-21 17:13 | PT.OTN ---
Current Diagnoses Strain of muscle, fascia and tendon at neck level, subsequent encounter (03/21/25) Fall on same level, unspecified, subsequent encounter (03/21/25) Physical Therapy Treatment Note PT-OP-A Visit Information Start: 03/05/25 17:05 Freq: Status: Active Protocol: Document 03/21/25 09:46 SAK (Rec: 03/21/25 10:45 SAK Laptop) Out-Patient Physical Therapy Visit Information Visit Information Visit Type Initial Evaluation Visit Start Time 09:45 Visit Stop Time 10:25 Visit Number 1 Number of DIRECTOR PATIENT Visits 0 Vital Signs Blood Pressure Standing Blood Pressure (90/ 109/73 60-120/80 mmHg) Blood Pressure Automatic Cuff,Left Upper Extremity Source Sitting Blood Pressure (90/ 136/80 H 60-120/80 mmHg) Blood Pressure Automatic Cuff,Left Upper Extremity Source Comments Vital Signs Comments BP dropped significantly from sitting to standing as above. Same after activity. PT-OP-B Current Condition Start: 03/05/25 17:05 Freq: Status: Active Protocol: Document 03/07/25 09:45 SAK (Rec: 03/07/25 10:30 SAK Laptop) Current Condition History of Current Condition Onset Date 02/04/25 Current Complaints neck pain History of Current caught toe on rug, tell and the right side of head hit Condition concrete stairs. Initially WAYNE, then gradual onset neck pain. Symptoms constent with concussion. Slept a lot, pain medications. Belkis out of head [address] showed no fracture. States yesterday good day feeling better, had first good night of sleep day before, maybe overdid today feeling woozy and more pain. Reports poor sleep since injury and very poor last night. Hasn't been driving until 1 week ago. Tried going to pool for water walking 1 week ago, moderate increase in pain. Has tried heat, temporary relief. States daughter massaging her neck 5 min felt good, went for massage Tuesday for 30 minutes which increased her pain. Several times a day feels weak, lays down. Moderate decline in function; no unable to go to pool, do yardwork, do woodwork, housework, ADL's painful. Initially very dizzy, no intermittant, mostly feels when she feels weak, breaks out in a sweat, and feels dizzy. No dizziness with change in movement Prior Treatments and muscle relaxants Tests Roney several times per day chiropracter Tuesday, helpful, sees again tomorrow. Treatment Goals Patient/Caregiver minimize pain, return to prior level of function Goals PT-OP-C Subjective Start: 03/05/25 17:05 Freq: Status: Active Protocol: Document 03/21/25 09:46 SAK (Rec: 03/21/25 10:45 SAK Laptop) OP-PT Subjective Patient Comments Patient Comments States rested in car prior to driving home after last sesion. Saw Dr. Ventura who decreased her BP meds. BP not as low. Going to have heart monitor. Still hasn't gone to the pool, hasn't exercised now for 6 wks. Doesn't have energy to do much. Pain is improving, down to 1 pain pill when goes to bed, hasn't had to take during the day for 1 week. Can't find exercise handouts. Afraid of falling. Doing a little gardening . PPt. reports her doctor advised her to take her BP when feeling dizzy and submit BP values. PT-OP-H Neuro Start: 03/05/25 17:05 Freq: Status: Active Protocol: Document 03/07/25 09:45 SAK (Rec: 03/09/25 18:50 SAK Laptop) Sensation Evaluation Gross Sensation Gross Sensation WNL PT-OP-J Posture/Palpation/Skin Start: 03/05/25 17:05 Freq: Status: Active Protocol: Document 03/07/25 09:45 SAK (Rec: 03/09/25 18:50 SAK Laptop) Palpation Assessment Location c/s, [place] R Palpation Findings Soft Tissue Tightness,Muscle Guarding,Tenderness PT-OP-K Range of Motion Start: 03/05/25 17:05 Freq: Status: Active Protocol: Document 03/07/25 09:45 SAK (Rec: 03/07/25 10:30 SAK Laptop) Cervical Spine Range of Motion Cervical Spine Active Flexion 45 Extension 30 Rotation Left 40 Rotation Right 55 Lateral Flexion Left 20 Lateral Flexion 30 Right ROM Limitations Soft Tissue Tightness,Pain Shoulder Goniometric Range of Motion Shoulder sherri Shoulder ROM WFL Yes Testing Position Sitting PT-OP-Q Treatments Start: 03/05/25 17:05 Freq: Status: Active Protocol: Document 03/21/25 09:46 SAK (Rec: 08/14/25 10:45 [facility] Laptop) Therapeutic Exercises Supine Exercises abdominal breathing Reps/Minutes 1 min pec stretch Reps/Minutes 1 min Comments gentle manual Sitting Exercises abdominal breathing Reps/Minutes 1 min cervical ROM Sitting Exercise SB and rot Name Reps/Minutes 5x ea chin tuck Reps/Minutes 5x shoulder rolls Reps/Minutes 5x Standing Exercises 6 min walk Reps/Minutes 926ft in 6 min Comments gait belt, no device, denied dizziness, no LOB, steadied herself on wall x1 standing bal Equipment Used standinb black foam EO and EC Reps/Minutes 3 min Manual Therapy Treatment Soft Tissue Mobilization c/s, [place] Mobilization Type Myofascial Release,Strumming Intensity/Depth gentle Body Position Hooklying Self-Care/Home Management Treatment Education Patient Education Home Exercise Program,Pain Management,Posture Other Education education regarding gradual increase in activity, know that it takes time for her body to heal from concussion . PT-OP-R Modalities Start: 03/05/25 17:05 Freq: Status: Active Protocol: Document 03/07/25 09:45 [facility] (Rec: 03/09/25 18:50 [facility] Laptop) Hot Pack/Cold Pack Treatment MH Location c/s, [place] Patient Position Hooklying Patient Tolerance Good PT-OP-T Assessment and Plan Start: 03/05/25 17:05 Freq: Status: Active Protocol: Document 03/21/25 09:46 [facility] (Rec: 03/21/25 10:45 [facility] Laptop) Physical Therapy Assessment Goals Three Impairment severe impairment in activity tolerance Short Term Goal (STG Patient will be able to do light housekeeping and ADL's ) without experiencing increase in neck pain STG Duration 04/06/25 Machine Try Out Setter Goal (LTG) Patient will be able to return to prior level of function which included housekeeping, woodworking, and aquatic exercise LTG Duration 05/07/25 Two Impairment lacking full neck ROM Short Term Goal (STG Patient to be instructed in gentle neck ROM exercises ) for HEP STG Duration 04/06/25 Nursing Home Goal (LTG) Patient to demonstrate full, pain-free neck ROM for improved function LTG Duration 05/07/25 One Impairment neck disability index score 44% Machine Try Out Setter Goal (LTG) Improve NDI score to no greater than 15% as measure of improved neck function LTG Duration 05/07/25 Assessment Summary Assessment Patient pain improving, decreased pain medication use. Continues to have BP challenges and episodes of feeling dizzy and weak. Demonstrated postural hypotension today but no dizziness. Improved activity tolerance and much encouragement regarding her body still healing, continue gradual progressive increase in activity as tolerated, use her cane for safety in yard . May try return to aquatic exercise with decreased time and intensity. Physical Therapy Plan Frequency and Duration Frequency of 2x/Week Treatment Duration of 8 treatment (weeks) Plan of Care Start 03/07/25 Date Plan of Care End 05/07/25 Date Therapeutic Interventions Therapeutic Home Exercise Program,Manual Therapy,Patient/Caregiver Interventions Education,Self-Care/Home Management,Soft Tissue Mobilization,Taping,Therapeutic Activities,Therapeutic Exercises Modalities Cold Pack/Ice Massage,Electric Stimulation,Hot Packs, Infrared Therapy,Iontophoresis,Ultrasound Next Visit Focus/Plan Next Note Type Treatment Note Next Visit Plan gentle balance challenge exercises emphasisizing not using neck. c/s ROM. Add LS stretch. consider wall posture and theraband row and shoulder ext. Manual therapy and modalities PRN.
--- NOTE | 2025-03-28 12:51 | PT.OTN ---
Current Diagnoses Strain of muscle, fascia and tendon at neck level, subsequent encounter (03/28/25) Fall on same level, unspecified, subsequent encounter (03/28/25) Physical Therapy Treatment Note PT OP: Cervical/Upper Extremity Start: 03/28/25 11:42 Freq: Status: Active Protocol: Document 03/28/25 11:43 TIGER MACHINE OPERATOR (Rec: 03/28/25 12:11 TIGER MACHINE OPERATOR Laptop) Out-Patient Physical Therapy Visit Information Visit Information Visit Type Treatment Note Visit Start Time 11:39 Visit Stop Time 12:25 Visit Number 2 Number of SAS CLINICAL PROGRAMMER Visits 0 Progress Note Due 04/06/25 Precautions Precautions history HTN OP-PT Subjective Patient Comments Patient Comments Pt reports she has been awake since 4am this morning d/ t neck pain and therefore feels more tired today, but reports overall improvement of neck pain and not having to take as many pain meds throughout the day. Reports she is noticing and correcting her posture more often. Therapeutic Exercises Supine Exercises pec stretch Supine Exercise Name on pool noodle, neck in slight ext on mat table Side bilateral Reps/Minutes 3 mins Comments very positive response, added to HEP w/ HO Sitting Exercises LS stretch Side bilateral Reps/Minutes 40s each side Comments Added to HEP w/ HO shoulder rolls Side bilateral Reps/Minutes 5x Comments between stretches Therapeutic Activity Therapeutic Activity Ergonomics Name While sewing Reps/Minutes 10 mins Comments height of table at elbow height, slight depression and retraction of B scapulas, slight chin tuck, using abdominals for forward bending vs forward head posture, frequent change in position and shoulder rolls. Positive response from pt and demos understanding Manual Therapy Treatment Consent Patient gave verbal Yes consent for manual treatment Soft Tissue Mobilization Pec Body Location R pec, humeral and clavicle insertions Mobilization Type Cross-Friction,Strumming Intensity/Depth Moderate Body Position Supine c/s, [place] Body Location B suboccipitals, rhomboids, LS R>L Mobilization Type Strumming,Trigger Point Release Intensity/Depth Moderate Body Position Supine Physical Therapy Assessment Goals Three Impairment severe impairment in activity tolerance Short Term Goal (STG Patient will be able to do light housekeeping and ADL's ) without experiencing increase in neck pain STG Duration 04/06/25 Special Assets Officer Goal (LTG) Patient will be able to return to prior level of function which included housekeeping, woodworking, and aquatic exercise LTG Duration 05/07/25 Two Impairment lacking full neck ROM Short Term Goal (STG Patient to be instructed in gentle neck ROM exercises ) for HEP STG Duration 04/06/25 Nursing Home Goal (LTG) Patient to demonstrate full, pain-free neck ROM for improved function LTG Duration 05/07/25 One Impairment neck disability index score 44% Special Assets Officer Goal (LTG) Improve NDI score to no greater than 15% as measure of improved neck function LTG Duration 05/07/25 Assessment Summary Assessment Pt tolerated gentle-mod STM to cervical and scapular muscles R>L and R pec this session followed by passive B pec stretch on pool noodle which pt had a very positive response to and added to HEP with HO as pt already has a pool noodle at home. LS stretch added to HEP, pt only able to hold stretch for 40s each. Discussed ergonomics while sewing with pt demonstrating excitement and understanding about implementing. Pt with mild dizziness upon supine>sit but resolved after ~20s of sitting. Physical Therapy Plan Frequency and Duration Frequency of 2x/Week Treatment Duration of 8 treatment (weeks) Plan of Care Start 03/07/25 Date Plan of Care End 05/07/25 Date Next Visit Focus/Plan Next Note Type Treatment Note Next Visit Plan gentle balance challenge exercises emphasisizing not using neck. c/s ROM. Add LS stretch. consider wall posture and theraband row and shoulder ext. Manual therapy and modalities PRN.
--- NOTE | 2025-04-03 09:55 | PT.OTN ---
Current Diagnoses Strain of muscle, fascia and tendon at neck level, subsequent encounter (04/03/25) Fall on same level, unspecified, subsequent encounter (04/03/25) Physical Therapy Treatment Note PT OP: Cervical/Upper Extremity Start: 03/28/25 11:42 Freq: Status: Active Protocol: Document 04/03/25 09:08 SP (Rec: 04/03/25 09:14 SP [id number]) Out-Patient Physical Therapy Visit Information Visit Information Visit Type Treatment Note Visit Start Time 09:08 Visit Stop Time 09:55 Visit Number 3 Number of MODELER Visits 1 Progress Note Due 04/06/25 Precautions Precautions history HTN OP-PT Subjective Patient Comments Patient Comments Pt reports has been exercises helping but wakes up at 2am nightly with pain and stiffness in R posterolateral neck. When is a bad day not steady, brain fog and has to take muscle relaxer/pain pill at night help with relief. Has used CP wrap more than MHP home for pain control. Therapeutic Exercises Supine Exercises Chin Tuck Equipment Used over noodle Reps/Minutes head on mat abdominal breathing Equipment Used over noodle Reps/Minutes 1 min Comments arms at side various ranges comfort pec stretch Supine Exercise Name pec stretch, protraction/retraction, HABD Side bilateral Equipment Used head on table, spine along noodle Reps/Minutes 3 mins Comments very positive response Sidelying Exercises Shoulder Abduction Sidelying Exercise added to HEP with HO Name Reps/Minutes 5 reps Comments tactile and VCs for scapular musculature control open book Sidelying Exercise added toHEP with HO Name Reps/Minutes 5 reps each side Comments tactile and VCs for scapular musculature control Sitting Exercises cervical ROM Sitting Exercise SB and rot Name Reps/Minutes 5x ea chin tuck Reps/Minutes 5x shoulder rolls Side bilateral Reps/Minutes 5x Comments between stretches Manual Therapy Treatment Consent Patient gave verbal Yes consent for manual treatment Soft Tissue Mobilization Pec Body Location R pec, humeral and clavicle insertions Mobilization Type Cross-Friction,Strumming Intensity/Depth Moderate Body Position Supine c/s, [place] Body Location B suboccipitals, rhomboids, LS R>L Mobilization Type Rolling,Sustained Pressure,Other Intensity/Depth Moderate Body Position Hooklying Comments STms and MWM head nod/turns Self-Care/Home Management Treatment Education Patient Education Body Mechanics,Home Exercise Program,Joint Protection, Pain Management,Posture,Safety Other Education educational instruction on breath and muscular controlled movement improved decrease pain and increase mobility with HO provided. Suggested purchase of noodle or pipe insulation for carryover with noted improvement in mobility end tx. Physical Therapy Assessment Goals Three Impairment severe impairment in activity tolerance Short Term Goal (STG Patient will be able to do light housekeeping and ADL's ) without experiencing increase in neck pain STG Duration 04/06/25 Assistant Cook Goal (LTG) Patient will be able to return to prior level of function which included housekeeping, woodworking, and aquatic exercise LTG Duration 05/07/25 Two Impairment lacking full neck ROM Short Term Goal (STG Patient to be instructed in gentle neck ROM exercises ) for HEP STG Duration 04/06/25 Halfway Goal (LTG) Patient to demonstrate full, pain-free neck ROM for improved function LTG Duration 05/07/25 One Impairment neck disability index score 44% Assistant Cook Goal (LTG) Improve NDI score to no greater than 15% as measure of improved neck function LTG Duration 05/07/25 Assessment Summary Assessment Pt improved cervical and shoulder complex ROM post manual and ed instructions with HOs for carryover home application of HEP over noodle. Additional instruction breathing for ribcage and UE mobility improved decreased pain end of tx. Physical Therapy Plan Frequency and Duration Frequency of 2x/Week Treatment Duration of 8 treatment (weeks) Plan of Care Start 03/07/25 Date Plan of Care End 05/07/25 Date Therapeutic Interventions Therapeutic Home Exercise Program,Manual Therapy,Patient/Caregiver Interventions Education,Self-Care/Home Management,Soft Tissue Mobilization,Taping,Therapeutic Activities,Therapeutic Exercises Modalities Cold Pack/Ice Massage,Electric Stimulation,Hot Packs, Infrared Therapy,Iontophoresis,Ultrasound Next Visit Focus/Plan Next Note Type Treatment Note Next Visit Plan gentle balance challenge exercises emphasisizing not using neck. c/s ROM. Add LS stretch. consider wall posture and theraband row and shoulder ext. Manual therapy and modalities PRN.
--- NOTE | 2025-04-09 11:30 | PT.OTN ---
Current Diagnoses Strain of muscle, fascia and tendon at neck level, subsequent encounter (04/09/25) Fall on same level, unspecified, subsequent encounter (04/09/25) Physical Therapy Treatment Note PT OP: Cervical/Upper Extremity Start: 03/28/25 11:42 Freq: Status: Active Protocol: Document 04/09/25 10:02 CUSTOMER SERVICE ENGINEER (Rec: 04/09/25 10:55 CUSTOMER SERVICE ENGINEER Laptop) Out-Patient Physical Therapy Visit Information Visit Information Visit Type Progress Note Visit Note short session d/t tardiness Visit Start Time 10:01 Visit Stop Time 10:39 Visit Number 4 Number of MANAGER CASINO Visits 0 Progress Note Due 05/09/25 Precautions Precautions history HTN OP-PT Subjective Patient Comments Patient Comments Pt reports she has turned a corner for the better in last week, Has not had muscle relaxers in 5 days. Still wakes up with tightness in neck but sleeping is much better. Current pain is 1-2/10 tenderness and tightness to R neck. Patient Questionnaires Neck Disability Index NDI Score 14=28% Therapeutic Exercises Supine Exercises pec stretch Supine Exercise Name HEP verbal review Sidelying Exercises open book Sidelying Exercise HEP verbal review Name Sitting Exercises Scap retract Side bilateral Reps/Minutes 10x2 Comments Added to HEP with HO UT stretch Side bilateral Reps/Minutes 30s each side Comments Added to HEP with HO LS stretch Side bilateral Reps/Minutes 30s each side Comments HEP review with VC to hold at least 30s Physical Therapy Assessment Goals Three Impairment severe impairment in activity tolerance Short Term Goal (STG Patient will be able to do light housekeeping and ADL's ) without experiencing increase in neck pain 2: MET, over past 5 days while taking advil but without muscle relaxers, able to perform all in morning with fatigue only, no increase in neck pain. STG Duration 04/06/25 MET Usp Goal (LTG) Patient will be able to return to prior level of function which included housekeeping, woodworking, and aquatic exercise LTG Duration 05/07/25 Two Impairment lacking full neck ROM Short Term Goal (STG Patient to be instructed in gentle neck ROM exercises ) for HEP 92: MET STG Duration 04/06/25 MET Air Sampler Goal (LTG) Patient to demonstrate full, pain-free neck ROM for improved function 92: Progressing, Lat flex L 27 degrees pain free, R 30 degrees pain free. Rotation L 39 degrees pain free, R 41 degrees pain free LTG Duration 05/07/25 One Impairment neck disability index score 44% Air Sampler Goal (LTG) Improve NDI score to no greater than 15% as measure of improved neck function 04/09: Progressing, 28% LTG Duration 05/07/25 Assessment Summary Assessment Pt demonstrates progress towards all goals, with no increased pain during light housework and ADLs only fatigue to meet this goal, NDI score improved from 44% to 28% impairment but not yet meeting goal of 15%, and cervical ROM improving without pain but still not in normal range. Added scapular retractions and UT stretching to HEP with HO. Physical Therapy Plan Frequency and Duration Frequency of 2x/Week Treatment Duration of 8 treatment (weeks) Plan of Care Start 03/07/25 Date Plan of Care End 05/07/25 Date Therapeutic Interventions Therapeutic Home Exercise Program,Manual Therapy,Patient/Caregiver Interventions Education,Self-Care/Home Management,Soft Tissue Mobilization,Taping,Therapeutic Activities,Therapeutic Exercises Modalities Cold Pack/Ice Massage,Electric Stimulation,Hot Packs, Infrared Therapy,Iontophoresis,Ultrasound Next Visit Focus/Plan Next Note Type Treatment Note Next Visit Plan Scapular strengthening, STM to neck as needed
--- NOTE | 2025-04-16 09:54 | PT-OP ANOTE ---
PT called spoke to home care scheduler, was in the ER recently and arm is in sling now, has to DC, will call back with new referral when cleared by physician. PT Flynn to complete DC.
--- NOTE | 2025-04-22 11:21 | PT.OPDS ---
Current Diagnoses Strain of muscle, fascia and tendon at neck level, subsequent encounter (04/09/25) Fall on same level, unspecified, subsequent encounter (04/09/25) Visit Care Team Role Provider Type Philip June MD Attending Provider Physician Family Provider Primary Care Provider Referring Provider Specialty: Family Practice Address: [address] [place] [address] Email: [email or web address] Visit Number Visit Number 4 Discharge Summary PT OP: Cervical/Upper Extremity Start: 03/28/25 11:42 Freq: Status: Active Protocol: Document 04/22/25 11:20 SAK (Rec: 04/22/25 11:21 SAK Laptop) Out-Patient Physical Therapy Visit Information Visit Information Visit Type Discharge Summary OP-PT Subjective Patient Comments Patient Comments Pt. awaiting MRI for shoulder. Will get new referral if doctor wants further PT. Physical Therapy Plan Discharge Physical Therapy Discharge Reasons Change in Medical Status
== END 2025-04-30 13:21 | disposition home or self-care (01) ==
LOC: PHYS 09:45
PROVIDERS: Family Provider Family Medicine; PCP Family Medicine; Referring Provider Family Medicine; Visit Provider Family Medicine
DX: S16.1XXD Strain of muscle, fascia and tendon at neck level, subsequent encounter (principal); W18.30XD Fall on same level, unspecified, subsequent encounter
CPT/HCPCS: 97110; 97140; 97162; 97530; 97535

== ENCOUNTER 2025-04-15 09:42 | Emergency (ER) | payer MEDICARE, SELFPAY ==
[2025-04-15] VITALS (17 sets, daily range): BP systolic 136–195; BP diastolic 73–99; PULSE 53–67; RESP 14–39; TEMP 36.5; O2SAT 92–100; BMI 31.6
--- NOTE | 2025-04-15 10:10 | EKG_ITS ---
[place] [id number] [place] [id number] Test Date: 2025-04-15 Pat Name: Maggi Mata Department: Room: Gender: Female Endoscopy Support Specialist: DWIGHT : 1945 Requested By: Order Number: [id number] Reading MD: Sukhdev Regan Measurements Intervals [place] Rate: 63 P: 25 PA: 152 QRS: -9 QRSD: 80 T: 24 QT: 410 QTc: 419 Interpretive Statements Sinus rhythm with occasional premature ventricular complexes Minimal voltage criteria for LVH, may be normal variant ( R in aVL ) Electronically Signed On 04-15-2025 13:47:14 PDT by Sukhdev Regan
--- NOTE | 2025-04-15 10:10 | DI.RAD.S_ITS ---
PROCEDURE: XR CHEST 1V INDICATIONS: Chest Pain TECHNIQUE: One view of the chest was acquired. COMPARISON: [facility], CR, XR CHEST 2V, 06/29/2024, 20:42. FINDINGS: Surgical changes and devices: None. Lungs and pleura: Lungs are clear. No pleural effusions or pneumothorax. Mediastinum: Mediastinal contours appear normal. Heart size is normal. Bones and chest wall: No suspicious bony lesions. Overlying soft tissues appear unremarkable. IMPRESSION: No acute cardiopulmonary pathology. Dictated by: Joshua Sharp M.D. on 04/15/2025 at 10:51 Approved by: Joshua Sharp M.D. on 04/15/2025 at 10:51
--- NOTE | 2025-04-15 10:11 | DI.RAD.S_ITS ---
PROCEDURE: XR SHOULDER LT MIN 2V INDICATIONS: pain TECHNIQUE: 3 views of the shoulder were acquired. COMPARISON: None. FINDINGS: Bones: No fractures or dislocations. Superior migration of humeral head in relation to glenoid is seen. Moderate acromioclavicular joint and glenohumeral joint osteoarthritic changes also seen. No suspicious bony lesions. Visualized ribs appear intact. Soft tissues: No suspicious soft tissue calcifications. IMPRESSION: No acute left shoulder fracture or dislocation. Moderate left shoulder joint osteoarthritis. Superior migration of humeral head in relation to glenoid with loss of subacromial space concerning for full-thickness rotator cuff tendon rupture. Clinical correlation and follow-up is recommended. Dictated by: Joshua Sharp M.D. on 04/15/2025 at 10:50 Approved by: Joshua Sharp M.D. on 04/15/2025 at 10:51
[2025-04-15 10:38] LABS: Add Manual Diff / Slide Review NO; Hematocrit 40.4 % (36-46); Hemoglobin 13.8 g/dL (12.0-16.0); Lymphocytes Absolute Auto 1000 /uL (1100-4500); Mean Corpuscular HGB Conc 34.2 % (30-36); Mean Corpuscular Hemoglobin 31.4 PG (26-34); Mean Corpuscular Volume 92.0 fL (80-100); Platelet Count 303 X10^3/uL (150-400)
[2025-04-15 10:42] LABS: INR 0.9 (0.9-1.3); Prothrombin Time 10.5 SECONDS (9.4-12.5)
[2025-04-15 10:45] LABS: Alanine Aminotransferase 24 IU/L (<35); Albumin 4.6 g/dL (3.5-5.0); Albumin Globulin Ratio 1.6 (1.0-2.8); Alkaline Phosphatase 61 U/L (38-126); Blood Urea Nitrogen 29 mg/dL (7-17); Calcium 9.6 mg/dL (8.4-10.2); Carbon Dioxide 23 mmol/L (22-32); Chloride 97 mmol/L (98-107); Creatine Kinase 46 U/L (30-135); Estimated Glomerular Filt Rate > 60 mL/min (>60); Globulin 2.9 g/dL (1.7-4.1); Glucose 97 mg/dL (70-99); HEMOLYSIS 17 (0-50); Lipase 68 U/L (23-300); Magnesium 1.7 mg/dL (1.6-2.3); PTT Partial Thromboplastin Tim 28 SECONDS (25.1-36.5); Potassium 5.1 mmol/L (3.4-5.1); Sodium 131 mmol/L (137-145); Total Protein 7.5 g/dL (6.3-8.2)
[2025-04-15 10:57] LABS: NT-proBNP (BNP-Adult 18+) 282 pg/mL (<450); Troponin I < 0.012 ng/mL (0.01-0.034)
--- NOTE | 2025-04-15 12:50 | PC.NURSE ---
Pt reports 8/10 pain to left shoulder. Verbal orders received from Dr Arreguin for 15 mg IV Tordol.
[2025-04-15] MEDS: KETOROLAC 30 MG/ML VIAL 15 MG IV (12:58)
--- NOTE | 2025-04-15 13:45 | ED.CHESTPAIN ---
HPI - Chest Pain General Chief Complaint: Chest Pain Stated Complaint: left arm pain 3 days Time Seen by Provider: 04/15/25 10:31 Source: patient Mode of arrival: Ambulatory Limitations: no limitations History of Present Illness HPI narrative: Patient is a 80-year-old female history of hypertension hyperlipidemia presenting to day with ongoing left shoulder pain. She denies any kind of injury she has been needing to supportive last couple of days. She feels sharp shooting pain going down her arm. She denies any kind of chest pain or shortness of breath. She is right-hand dominant. She has been taking some muscle relaxers to help with pain but it is not really helping. No numbness tingling or weakness. She has not been dropping anything. She is in quite a bit of pain now it is definitely reproducible with movement. Related Data Home Medications ?Medication ?Instructions ?Recorded ?Confirmed fluticasone propionate 50 1 spray intranasal DAILY 09/07/19 03/29/25 mcg/actuation nasal spray,suspension (Flonase Allergy Relief) Previous Rx's ?Medication ?Instructions ?Recorded blood pressure kit #1 ea 08/14/19 fluoxetine 20 mg capsule 20 mg PO DAILY #90 caps 07/10/24 rosuvastatin 20 mg tablet 20 mg PO BEDTIME #90 tabs 07/10/24 atenolol 25 mg tablet 25 mg PO DAILY #90 tabs 09/25/24 losartan 50 mg tablet 50 mg PO BID #180 tabs 01/15/25 spironolactone 25 mg tablet 25 mg PO BID #180 tabs 01/15/25 ondansetron 4 mg disintegrating 4 mg PO Q8H PRN nausea and 02/06/25 tablet vomiting #14 tabs methocarbamol 750 mg tablet 750 mg PO TID #60 tabs 03/05/25 hydrocodone 5 mg-acetaminophen 325 1 tab PO Q6H PRN pain #10 tabs 04/15/25 mg tablet Allergies Allergy/AdvReac Type Severity Reaction Status Date / Time azithromycin (AZITHROMYCIN) Allergy Severe THROAT Verified 04/15/25 10:03 SWELLING & SOB clindamycin AdvReac Mild Diarrhea Verified 04/15/25 10:03 sulfamethoxazole (From AdvReac Mild INSOMNIA Verified 04/15/25 10:03 BACTRIM) trimethoprim (From BACTRIM) AdvReac Mild INSOMNIA Verified 04/15/25 10:03 Patient History Medical History Neck muscle spasm Dysphagia (05/07/16) Clostridium difficile diarrhea (09/17/14) Varicose veins of ankle Venous stasis Ventricular ectopic activity Abdominal pain Renal artery stenosis (~10/08/19) Fatigue (06/2019) Hypertension Hyperlipidemia Surgical History Status post vaginal hysterectomy Social History Smoking Status: Never smoker Smoking Status: Never smoker alcohol intake frequency: holidays/special occasions only Exam Initial Vital Signs Initial Vital Signs: Vital Signs Temperature 97.7 F 04/15/25 10:01 Pulse Rate 67 04/15/25 10:01 Respiratory Rate 20 04/15/25 10:01 Blood Pressure 145/80 H 04/15/25 10:01 Pulse Oximetry 100 04/15/25 10:01 Oxygen Delivery Method Room Air 04/15/25 10:01 GENERAL: Alert pleasant 80-year-old female appears uncomfortable and in pain HEENT: Head atraumatic,EOMI, pupils reactive, face symmetric, [moist] mucous membranes CARDIOVASCULAR: Regular rate and rhythm without murmurs, rubs or gallops. RESPIRATORY: Breath sounds equal bilaterally, no wheezes rales or rhonchi. ABDOMEN: Soft, nontender. Normoactive bowel sounds all 4 quadrants. No guarding or rebound. EXTREMITIES: Normal range of motion, no clubbing or edema. Neurovascularly intact Left shoulder she does have some decreased range of motion with abduction distal radial pulse intact no erythema elbow and wrist joints are within normal limits. She has good sensation over her deltoid NEUROLOGICAL: Alert and oriented x4.Normal gait and speech. Cranial nerves II through XII grossly intact. SKIN: Warm, dry, no laceration, no petechiae, no rashes or lesions. Course Orders Ordered: ED Orders 04/15/25 10:10 XR chest 1V Stat EKG-12 Lead Stat 04/15/25 10:11 XR shoulder LT 2+ views Stat 04/15/25 10:20 Complete Blood Count AUTO DIFF Stat Comprehensive Metabolic Panel Stat D Dimer Stat Lipase Stat Magnesium Stat NT-proBNP (BNP-Adult 18+) Stat PTT Partial Thromboplastin Levon Stat Prothrombin Time INR Stat Troponin & CK Cardiac Panel Stat Discontinued Medications Aspirin (Aspirin 81 Mg Chew Tab) 324 mg PO NOW ONE Stop: 04/15/25 10:11 Last Admin: 04/15/25 11:34 Dose: Not Given Documented By: Ketorolac Tromethamine (Ketorolac 30 Mg/Ml Vial) 15 mg IV NOW ONE Stop: 04/15/25 12:57 Last Admin: 04/15/25 12:58 Dose: 15 mg Documented By: Non-Formulary Medication (Tordol) 15 mg IV STAT OLAF Vital Signs Vital signs: Vital Signs - 8 hr 04/15/25 10:01 04/15/25 10:29 04/15/25 10:30 Temperature 97.7 F Pulse Rate 67 59 L 57 L Respiratory Rate 20 39 H Blood Pressure 145/80 H Pulse Oximetry 100 98 98 Oxygen Delivery Method Room Air 04/15/25 10:31 04/15/25 10:31 04/15/25 11:00 Temperature Pulse Rate 60 59 L Respiratory Rate 19 22 Blood Pressure 136/73 Pulse Oximetry 98 98 Oxygen Delivery Method Room Air 04/15/25 11:01 04/15/25 11:01 04/15/25 11:30 Temperature Pulse Rate 57 L 57 L Respiratory Rate 22 17 Blood Pressure 173/86 H Pulse Oximetry 98 99 Oxygen Delivery Method 04/15/25 11:31 04/15/25 11:31 04/15/25 12:00 Temperature Pulse Rate 55 L 53 L Respiratory Rate 24 18 Blood Pressure 195/88 H Pulse Oximetry 98 92 Oxygen Delivery Method Room Air 04/15/25 12:01 04/15/25 12:01 04/15/25 12:30 Temperature Pulse Rate 54 L 54 L Respiratory Rate 15 20 Blood Pressure 186/99 H Pulse Oximetry 96 96 Oxygen Delivery Method Room Air 04/15/25 12:31 04/15/25 12:31 04/15/25 13:00 Temperature Pulse Rate 53 L 54 L Respiratory Rate 20 21 Blood Pressure 175/88 H Pulse Oximetry 97 98 Oxygen Delivery Method 04/15/25 13:01 04/15/25 13:01 04/15/25 13:30 Temperature Pulse Rate 53 L 54 L Respiratory Rate 25 H 14 Blood Pressure 187/84 H Pulse Oximetry 99 96 Oxygen Delivery Method 04/15/25 13:31 04/15/25 13:31 04/15/25 14:00 Temperature Pulse Rate 54 L Respiratory Rate 15 Blood Pressure 190/91 H 184/87 H Pulse Oximetry 97 Oxygen Delivery Method Room Air 04/15/25 14:00 Temperature Pulse Rate 54 L Respiratory Rate 23 Blood Pressure Pulse Oximetry 99 Oxygen Delivery Method MDM - Chest Pain Lab Data 04/15/25 10:20 04/15/25 10:20 Labs: Lab Results 04/15/25 Range/Units 10:20 WBC 6.4 (4.5-11.0) X10^3/uL RBC 4.39 (4.0-5.2) X10^6/uL Hgb 13.8 (12.0-16.0) g/dL Hct 40.4 (36-46) % MCV 92.0 (80-100) fL MCH 31.4 (26-34) PG MCHC 34.2 (30-36) % RDW 14.7 (11.6-14.8) % Plt Count 303 (150-400) X10^3/uL Neut % (Auto) 74.6 (50-75) % Lymph % (Auto) 14.9 L (25-40) % [place] % (Auto) 7.1 (3-14) % Eos % (Auto) 2.7 (2-4) % Baso % (Auto) 0.7 (0-2) % Neut # (Auto) 4800 (6879-2691) /uL Lymph # (Auto) 1000 L (0193-3993) /uL [place] # (Auto) 500 (0-900) /uL Eos # (Auto) 200 (0-450) /uL Baso # (Auto) 0 (0-100) /uL PT 10.5 (9.4-12.5) SECONDS INR 0.9 (0.9-1.3) APTT 28 (25.1-36.5) SECONDS D-Dimer 500 (<500) ng/ml Sodium 131 L (137-145) mmol/L Potassium 5.1 (3.4-5.1) mmol/L Chloride 97 L (98-107) mmol/L Carbon Dioxide 23 (22-32) mmol/L BUN 29 H (7-17) mg/dL Creatinine 0.79 (0.52-1.04) mg/dL Estimated GFR > 60 (>60) mL/min BUN/Creatinine Ratio 36.7 H (6-22) Glucose 97 (70-99) mg/dL Calcium 9.6 (8.4-10.2) mg/dL Magnesium 1.7 (1.6-2.3) mg/dL Total Bilirubin 0.6 (0.2-1.3) mg/dL AST 35 (14-36) IU/L ALT 24 (<35) IU/L Alkaline Phosphatase 61 (38-126) U/L Total Creatine Kinase 46 (30-135) U/L Troponin I < 0.012 (0.01-0.034) ng/mL NT-Pro-B Natriuret Pep 282 (<450) pg/mL Total Protein 7.5 (6.3-8.2) g/dL Albumin 4.6 (3.5-5.0) g/dL Globulin 2.9 (1.7-4.1) g/dL Albumin/Globulin Ratio 1.6 (1.0-2.8) Lipase 68 (23-300) U/L Imaging Data Extremity x-ray #1: Radiologist's Impression: PROCEDURE: XR SHOULDER LT MIN 2V INDICATIONS: pain TECHNIQUE: 3 views of the shoulder were acquired. COMPARISON: None. FINDINGS: Bones: No fractures or dislocations. Superior migration of humeral head in relation to glenoid is seen. Moderate acromioclavicular joint and glenohumeral joint osteoarthritic changes also seen. No suspicious bony lesions. Visualized ribs appear intact. Soft tissues: No suspicious soft tissue calcifications. IMPRESSION: No acute left shoulder fracture or dislocation. Moderate left shoulder joint osteoarthritis. Superior migration of humeral head in relation to glenoid with loss of subacromial space concerning for full-thickness rotator cuff tendon rupture. Clinical correlation and follow-up is recommended. Dictated by: Joshua Sharp M.D. on 04/15/2025 at 10:50 Approved by: Joshua Sharp M.D. on 04/15/2025 at 10:51 Chest x-ray: Radiologist's Impression: PROCEDURE: XR CHEST 1V INDICATIONS: Chest Pain TECHNIQUE: One view of the chest was acquired. COMPARISON: [facility], XR CHEST 2V, 06/29/2024, 20:42. FINDINGS: Surgical changes and devices: None. Lungs and pleura: Lungs are clear. No pleural effusions or pneumothorax. Mediastinum: Mediastinal contours appear normal. Heart size is normal. Bones and chest wall: No suspicious bony lesions. Overlying soft tissues appear unremarkable. IMPRESSION: No acute cardiopulmonary pathology. Dictated by: Joshua Sharp M.D. on 04/15/2025 at 10:51 ECG Data Attestation: I personally reviewed and interpreted this ECG as follows: Prior ECG tracings: available for review Interpretation: Normal sinus rhythm rate 63 RI interval 152 QRS [address] changes T-wave inversion noted in lead 3 similar to previous EKGs in 2023 MDM Narrative Medical decision making narrative: Patient is 80-year-old female presenting today with left shoulder pain. It is definitely positional hurts to move. She had a cardiac workup which was essentially negative. EKGs is similar she has a negative troponin blood work is reassuring. X-ray of left shoulder does suggest a possible rotator cuff tear. She is given a sling here in the ED also given pain medication which he says does help. At this time I have a high suspicion that shoulder pain is from rotator cuff recommend outpatient MRI. All questions have been answered Discharge Plan Departure Patient Disposition: Home Clinical Impression: Rotator cuff (capsule) sprain Instructions: Rotator Cuff Injury Activity Restrictions/Additional Instructions: *You have been diagnosed with rotator cuff injury *What to do: At this time I have high suspicion you injured your rotator cuff. He will need an outpatient MRI. Wear arm sling as needed *Continue to take medications as directed [place] 1 tablet every 6 hours or at nighttime as needed for severe pain--do not combine with muscle relaxer Motrin 600 mg every 6 hours for [id number] pain *Follow up with your primary care provider in 2-3 days or call [phone] *Return to ER if you should have increasing pain numbness tingling weakness or any new, worsening or concerning symptoms CONTROLLED SUBSTANCE DISCHARGE (Narcotoic/benzodiazepine/Flexeril/Phenergan) 1. You have been prescribed narcotic medications, it does have acetaminophen/Tylenol/paracetamol in it, DO NOT TAKE MORE THAN 4,00mg in 24 hours of Tylenol. TRAMADOL DOES NOT CONTAIN TYLENOL 2. Please understand that we cannot provide further refills of narcotics, benzodiazepines or controlled substances through the ED and her pain management will need to be through your provider. 3. While on these medications you cannot drive or operate heavy machinery. 4. You cannot sign legal documents or perform any duties such as this. 5. As long as you're taking opiate pain medications he should also be taking a stool softener such as Colace, Dulcolax, MiraLAX or prune juice, to help avoid constipation. Prescriptions: New hydrocodone-acetaminophen 5-325 mg tablet 1 tab PO Q6H PRN (Reason: pain) Qty: 10 0RF No Action atenolol 25 mg tablet 25 mg PO DAILY Qty: 90 3RF methocarbamol 750 mg tablet 750 mg PO TID Qty: 60 0RF Rx Instructions: Take 1 tablet three times a day as needed for pain (DME) blood pressure kit Qty: 1 0RF Rx Instructions: check BP twice daily rosuvastatin 20 mg tablet 20 mg PO BEDTIME Qty: 90 3RF fluoxetine 20 mg capsule 20 mg PO DAILY Qty: 90 3RF spironolactone 25 mg tablet 25 mg PO BID Qty: 180 3RF losartan 50 mg tablet 50 mg PO BID Qty: 180 3RF fluticasone propionate [Flonase Allergy Relief] 9.9 ML spray,suspension 1 spray Intranasal DAILY ondansetron 4 mg tablet,disintegrating 4 mg PO Q8H PRN (Reason: nausea and vomiting) Qty: 14 0RF Referrals: Philip June MD [Primary Care Provider, Family Practice] Stand Alone Forms: Patient Portal/API
== END 2025-04-15 14:29 | disposition home or self-care (01) ==
PROVIDERS: Emergency Provider Emergency Medicine; Family Provider Family Medicine; PCP Family Medicine
DX: S43.422A Sprain of left rotator cuff capsule, initial encounter (principal); R07.9 Chest pain, unspecified
CPT/HCPCS: 36415; 71045; 73030; 80053; 82550; 83690; 83735; 83880; 84484; 85025; 85379; 85610; 85730; 93005; 96374; 99284; J1885

== ENCOUNTER 2025-05-03 09:00 | Emergency (ER) | payer MEDICARE, SELFPAY ==
[2025-05-03 09:03] VITALS: BP 118/71; PULSE 82; RESP 13; TEMP 37; O2SAT 98; BMI 31.7
--- NOTE | 2025-05-03 09:08 | DI.CT.S_ITS ---
PROCEDURE: CT HEAD/BRAIN WO CON INDICATIONS: fall TECHNIQUE: Noncontrast 4.5 mm thick angled axial sections acquired from the foramen magnum to the vertex, with coronal and sagittal reformats. For radiation dose reduction, the following was used: automated exposure control, adjustment of mA and/or kV according to patient size. COMPARISON: [facility], CT, CT HEAD/BRAIN WO CON, 02/06/2025, 13:44. FINDINGS: Image quality: Diagnostic. CSF spaces: Basal cisterns are patent. No extra-axial fluid collections. The ventricles are symmetric in size and shape. Brain: No intracranial bleeds or mass effect. Prominent empty sella is stable. There is cerebral volume loss, with resultant ventricular and sulcal prominence. There are periventricular and deep white matter chronic small vessel ischemic changes. There is intracranial internal carotid artery atherosclerosis. Skull and face: Calvarium and visualized facial bones appear intact, without suspicious lesions. Sinuses: Visualized sinuses and mastoids are clear. IMPRESSION: No acute intracranial pathology. Dictated by: Kai Cruz M.D. on 05/03/2025 at 9:52 Approved by: Kai Cruz M.D. on 05/03/2025 at 9:54
--- NOTE | 2025-05-03 09:08 | DI.CT.S_ITS ---
PROCEDURE: CT CERVICAL SPINE WO CON INDICATIONS: fall TECHNIQUE: Noncontrast 3 mm thick sections acquired from the skull base to the T4 level. Sagittal and coronal reformats were then constructed. For radiation dose reduction, the following was used: automated exposure control, adjustment of mA and/or kV according to patient size. COMPARISON: [facility], CT, CT CERVICAL SPINE WO CON, 02/06/2025, 13:44. FINDINGS: Image quality: Excellent. Bones: No fractures or dislocations. Multilevel degenerative changes of the cervical spine are similar compared to prior. Visualized superior ribs are intact. Soft tissues: Prevertebral soft tissues are normal in thickness. No paravertebral hematomas. No apical pneumothoraces. IMPRESSION: No displaced fracture or traumatic subluxation. Dictated by: Kai Cruz M.D. on 05/03/2025 at 9:57 Approved by: Kai Cruz M.D. on 05/03/2025 at 9:59
--- NOTE | 2025-05-03 09:08 | DI.CT.S_ITS ---
PROCEDURE: CT FACIAL BONES WO CON INDICATIONS: fall TECHNIQUE: Noncontrast 2.5 mm thick axial images acquired from the mandible through the frontal sinuses, with coronal and sagittal reformatting. For radiation dose reduction, the following was used: automated exposure control, adjustment of mA and/or kV according to patient size. COMPARISON: None. FINDINGS: Image quality: Excellent. Bones and teeth: Orbital rivera are intact. Sinus rivera show no fracture or deformity. Nasal bones and septum are intact. Visualized portions of the mandible demonstrate no fractures or subluxation. Zygomatic arches are intact. Pterygoid plates are intact. Visualized portions of the skull base and auditory canals are intact. Sinuses: Paranasal sinuses are aerated, without fluid levels, mucosal thickening, or mucoceles. Mastoid air cells are aerated. Soft tissues: Subcutaneous swelling over the right cheek. No enlarged lymph nodes. No soft tissue lacerations or debris. Vascular: Visualized vascular structures appear normal in the absence of contrast. Bony vascular foramina and canals are intact. IMPRESSION: No acute facial fractures. Dictated by: Kai Cruz M.D. on 05/03/2025 at 9:54 Approved by: Kai Cruz M.D. on 05/03/2025 at 9:57
--- NOTE | 2025-05-03 10:20 | ED.FALL ---
HPI - Fall General Chief Complaint: Fall Stated Complaint: Fell hit head , sent from PCP Time Seen by Provider: 05/03/25 09:44 Source: patient Mode of arrival: Ambulatory History of Present Illness HPI Narrative: Patient is sent here from primary care office for evaluation of head injury. Patient has periorbital bruising to the right eye area with abrasion to the right cheek. Patient up-to-date with tetanus. Patient complains of nausea blurry vision since her injury. She states 2 days ago she is walking in the parking lot of a restaurant and was distracted by a delivery truck and she did not see a divot in the ground and fell forward. No loss of consciousness she is not on any blood thinners. Complains of bilateral paracervical muscle pain. No numbness tingling or weakness. No confusion. Has chronic left shoulder pain and being evaluated for rotator cuff injury with pending MRI, pending insurance approval. Patient did get nausea relief with leftover Zofran at home. Pain is controlled. No altered mental status. No numbness tingling or weakness of the limbs. Related Data Home Medications ?Medication ?Instructions ?Recorded ?Confirmed fluticasone propionate 50 1 spray intranasal DAILY 09/07/19 04/16/25 mcg/actuation nasal spray,suspension (Flonase Allergy Relief) Previous Rx's ?Medication ?Instructions ?Recorded blood pressure kit #1 ea 08/14/19 fluoxetine 20 mg capsule 20 mg PO DAILY #90 caps 07/10/24 rosuvastatin 20 mg tablet 20 mg PO BEDTIME #90 tabs 07/10/24 atenolol 25 mg tablet 25 mg PO DAILY #90 tabs 09/25/24 losartan 50 mg tablet 50 mg PO BID #180 tabs 01/15/25 spironolactone 25 mg tablet 25 mg PO BID #180 tabs 01/15/25 ondansetron 4 mg disintegrating 4 mg PO Q8H PRN nausea and 02/06/25 tablet vomiting #14 tabs methocarbamol 750 mg tablet 750 mg PO TID #60 tabs 03/05/25 hydrocodone 5 mg-acetaminophen 325 1 tab PO Q6H PRN pain #10 tabs 04/15/25 mg tablet ondansetron 4 mg disintegrating 4 mg PO Q6H PRN nausea and 05/03/25 tablet vomiting #20 tabs Allergies Allergy/AdvReac Type Severity Reaction Status Date / Time azithromycin (AZITHROMYCIN) Allergy Severe THROAT Verified 05/03/25 09:03 SWELLING & SOB clindamycin AdvReac Mild Diarrhea Verified 05/03/25 09:03 sulfamethoxazole (From AdvReac Mild INSOMNIA Verified 05/03/25 09:03 BACTRIM) trimethoprim (From BACTRIM) AdvReac Mild INSOMNIA Verified 05/03/25 09:03 Review of Systems Review of Systems Narrative: GENERAL: Negative chills, fatigue, malaise, fever, sweats. HEENT: Negative sinus pain, ear pain, sore throat RESPIRATORY: Negative dyspnea, cough CARDIOVASCULAR: Negative chest pain, palpitations GASTROINTESTINAL: Negative vomiting, nausea, abdominal pain : Negative dysuria, frequency, hematuria MUSCULOSKELETAL: Positive muscle or bony pain SKIN: Negative rash, skin lesions NEUROLOGIC: Negative weakness, numbness ROS Unobtainable: All systems reviewed & are unremarkable except as noted in HPI and below Patient History Medical History Neck muscle spasm Dysphagia (05/07/16) Clostridium difficile diarrhea (09/17/14) Varicose veins of ankle Venous stasis Ventricular ectopic activity Abdominal pain Renal artery stenosis (~10/08/19) Fatigue (06/2019) Hypertension Hyperlipidemia Surgical History Status post vaginal hysterectomy Social History Smoking Status: Unknown if ever smoked Smoking Status: Unknown if ever smoked alcohol intake frequency: holidays/special occasions only Exam Narrative Exam Narrative: GENERAL: in no distress, not toxic not dyspneic HEAD: Normocephalic. Right periorbital ecchymosis small abrasion to the zygomatic arch. EYES: Pupils equal round EOMI no double vision ENT: Mucous membranes moist. NECK: Trachea midline. No midline tenderness or step-off of the cervicothoracic spine or lumbar spine. CARDIOVASCULAR: Regular rate and rhythm RESPIRATORY: Clear to auscultation. Breath sounds equal bilaterally. No wheezes, rales, or rhonchi. GASTROINTESTINAL: Abdomen soft, non-tender EXTREMITIES: No gross deformities. Mild tenderness to the left shoulder but able to brain handle both head and across the chest. Has chronic left shoulder pain. Otherwise nontender bilateral shoulders elbows wrists pelvis hips knees and ankles. BACK: No flank tenderness. NEURO: AOx4. Clear speech SKIN: Warm and dry PSYCH: Not anxious, is cooperative Initial Vital Signs Initial Vital Signs: Vital Signs Temperature 98.6 F 05/03/25 09:03 Pulse Rate 82 05/03/25 09:03 Respiratory Rate 13 05/03/25 09:03 Blood Pressure 118/71 05/03/25 09:03 Pulse Oximetry 98 05/03/25 09:03 Oxygen Delivery Method Room Air 05/03/25 09:03 Course Orders Ordered: ED Orders 05/03/25 09:08 CT cervical spine wo con Stat CT facial bones wo con Stat CT head/brain wo con Stat Vital Signs Vital signs: Vital Signs - 8 hr 05/03/25 09:03 05/03/25 10:25 Temperature 98.6 F Pulse Rate 82 64 Respiratory Rate 13 Blood Pressure 118/71 147/82 H Pulse Oximetry 98 95 Oxygen Delivery Method Room Air Room Air MDM - Fall Imaging Data CT scan - head: Radiologist's Impression: [address] [address] [address] Scan Report Signed Patient: Maggi Mata MR#: [id number] : 1945 Acct:[id number] Age/Sex: 80 / F Date of Service: 05/03/25 Loc: ED Accession Number: [id number] Procedure: CT head/brain wo con Ordering Provider: Rudy Redd MD PROCEDURE: CT HEAD/BRAIN WO CON INDICATIONS: fall TECHNIQUE: Noncontrast 4.5 mm thick angled axial sections acquired from the foramen magnum to the vertex, with coronal and sagittal reformats. For radiation dose reduction, the following was used: automated exposure control, adjustment of mA and/or kV according to patient size. COMPARISON: [facility], CT, CT HEAD/BRAIN WO CON, 02/06/2025, 13:44. FINDINGS: Image quality: Diagnostic. CSF spaces: Basal cisterns are patent. No extra-axial fluid collections. The ventricles are symmetric in size and shape. Brain: No intracranial bleeds or mass effect. Prominent empty sella is stable. There is cerebral volume loss, with resultant ventricular and sulcal prominence. There are periventricular and deep white matter chronic small vessel ischemic changes. There is intracranial internal carotid artery atherosclerosis. Skull and face: Calvarium and visualized facial bones appear intact, without suspicious lesions. Sinuses: Visualized sinuses and mastoids are clear. IMPRESSION: No acute intracranial pathology. Dictated by: Kai Cruz M.D. on 05/03/2025 at 9:52 Approved by: Kai Cruz M.D. on 05/03/2025 at 9:54 CT - cervical spine: Radiologist's Impression: [place] [id number] CT Scan Report Signed Patient: Maggi Mata MR#: [id number] : 1945 Acct:[id number] Age/Sex: 80 / F Date of Service: 05/03/25 Loc: ED Accession Number: [id number] Procedure: CT cervical spine wo con Ordering Provider: Rudy Redd MD PROCEDURE: CT CERVICAL SPINE WO CON INDICATIONS: fall TECHNIQUE: Noncontrast 3 mm thick sections acquired from the skull base to the T4 level. Sagittal and coronal reformats were then constructed. For radiation dose reduction, the following was used: automated exposure control, adjustment of mA and/or kV according to patient size. COMPARISON: [facility], CT, CT CERVICAL SPINE WO CON, 02/06/2025, 13:44. FINDINGS: Image quality: Excellent. Bones: No fractures or dislocations. Multilevel degenerative changes of the cervical spine are similar compared to prior. Visualized superior ribs are intact. Soft tissues: Prevertebral soft tissues are normal in thickness. No paravertebral hematomas. No apical pneumothoraces. IMPRESSION: No displaced fracture or traumatic subluxation. Dictated by: Kai Cruz M.D. on 05/03/2025 at 9:57 Approved by: Kai Cruz M.D. on 05/03/2025 at 9:59 CT face: Radiologist's Impression: [address] [address] [address] Scan Report Signed Patient: Maggi Mata MR#: [id number] : 1945 Acct:[id number] Age/Sex: 80 / F Date of Service: 05/03/25 Loc: ED Accession Number: [id number] Procedure: CT facial bones wo con Ordering Provider: Rudy Redd MD PROCEDURE: CT FACIAL BONES WO CON INDICATIONS: fall TECHNIQUE: Noncontrast 2.5 mm thick axial images acquired from the mandible through the frontal sinuses, with coronal and sagittal reformatting. For radiation dose reduction, the following was used: automated exposure control, adjustment of mA and/or kV according to patient size. COMPARISON: None. FINDINGS: Image quality: Excellent. Bones and teeth: Orbital rivera are intact. Sinus rivera show no fracture or deformity. Nasal bones and septum are intact. Visualized portions of the mandible demonstrate no fractures or subluxation. Zygomatic arches are intact. Pterygoid plates are intact. Visualized portions of the skull base and auditory canals are intact. Sinuses: Paranasal sinuses are aerated, without fluid levels, mucosal thickening, or mucoceles. Mastoid air cells are aerated. Soft tissues: Subcutaneous swelling over the right cheek. No enlarged lymph nodes. No soft tissue lacerations or debris. Vascular: Visualized vascular structures appear normal in the absence of contrast. Bony vascular foramina and canals are intact. IMPRESSION: No acute facial fractures. Dictated by: Kai Crzu M.D. on 05/03/2025 at 9:54 Approved by: Kai Cruz M.D. on 05/03/2025 at 9:57 [facility] Narrative Medical decision making narrative: Patient is sent here from primary care office for evaluation of head injury. Patient has periorbital bruising to the right eye area with abrasion to the right cheek. Patient up-to-date with tetanus. Patient complains of nausea blurry vision since her injury. She states 2 days ago she is walking in the parking lot of a restaurant and was distracted by a delivery truck and she did not see a divot in the ground and fell forward. No loss of consciousness she is not on any blood thinners. Complains of bilateral paracervical muscle pain. No numbness tingling or weakness. No confusion. Has chronic left shoulder pain and being evaluated for rotator cuff injury with pending MRI, pending insurance approval. Patient did get nausea relief with leftover Zofran at home. Pain is controlled. No altered mental status. No numbness tingling or weakness of the limbs. MDM After history and exam, CT head face cervical spine Differential considered: Includes but not limited to facial contusion facial abrasion concussion Medical records reviewed: No recent visit for this complaint Imaging studies independently reviewed: CT head cervical spine face no acute bony finding Re-evaluations: 10:30 a.m.. Updated patient results. Pain is controlled. Return precautions reviewed with her. Head injury instructions provided. She desires discharge home. Discussion: Appropriate for discharge home. Exam is reassuring. Return precautions reviewed patient. Not toxic at discharge. She is awake alert oriented x4. Diagnosis: Concussion facial abrasion facial contusion Discharge Plan Departure Patient Disposition: Home Clinical Impression: Concussion Qualifiers: Encounter type: initial encounter Loss of consciousness presence/duration: without LOC Qualified Code(s): S06.0X0A - Concussion without loss of consciousness, initial encounter Contusion of face Qualifiers: Encounter type: initial encounter Qualified Code(s): S00.83XA - Contusion of other part of head, initial encounter Abrasion of face Qualifiers: Encounter type: initial encounter Qualified Code(s): S00.81XA - Abrasion of other part of head, initial encounter Instructions: DI for Concussion, DI for Contusion, DI for Closed Head Injury, DI for Abrasion Activity Restrictions/Additional Instructions: Your exam and CAT scan imaging are reassuring. Prescription for nausea has been sent to your pharmacy to continue. Please review head injury instructions and concussion instructions. See family doctor in a week for re-evaluation. Return if worse if any questions or concerns. Prescriptions: New ondansetron 4 mg tablet,disintegrating 4 mg PO Q6H PRN (Reason: nausea and vomiting) Qty: 20 0RF No Action atenolol 25 mg tablet 25 mg PO DAILY Qty: 90 3RF methocarbamol 750 mg tablet 750 mg PO TID Qty: 60 0RF Rx Instructions: Take 1 tablet three times a day as needed for pain (DME) blood pressure kit Qty: 1 0RF Rx Instructions: check BP twice daily rosuvastatin 20 mg tablet 20 mg PO BEDTIME Qty: 90 3RF fluoxetine 20 mg capsule 20 mg PO DAILY Qty: 90 3RF spironolactone 25 mg tablet 25 mg PO BID Qty: 180 3RF losartan 50 mg tablet 50 mg PO BID Qty: 180 3RF fluticasone propionate [Flonase Allergy Relief] 9.9 ML spray,suspension 1 spray Intranasal DAILY ondansetron 4 mg tablet,disintegrating 4 mg PO Q8H PRN (Reason: nausea and vomiting) Qty: 14 0RF hydrocodone-acetaminophen 5-325 mg tablet 1 tab PO Q6H PRN (Reason: pain) Qty: 10 0RF Referrals: Philip June MD [Primary Care Provider, Family Practice] Stand Alone Forms: Patient Portal/API
[2025-05-03 10:25] VITALS: BP 147/82; PULSE 64; O2SAT 95
== END 2025-05-03 11:15 | disposition home or self-care (01) ==
PROVIDERS: Emergency Provider Emergency Medicine; Family Provider Family Medicine; PCP Family Medicine
DX: S06.0X0A Concussion without loss of consciousness, initial encounter (principal); S00.83XA Contusion of other part of head, initial encounter; S00.81XA Abrasion of other part of head, initial encounter; H53.8 Other visual disturbances; W01.198A Fall on same level from slipping, tripping and stumbling with subsequent striking against other object, initial encounter
CPT/HCPCS: 70450; 70486; 72125; 99281; 99284